=== PATIENT | male | born 1980 | race African-American/Black ===

== ENCOUNTER 2016-05-16 20:43 | Observation (INO) | payer SELFPAY ==
--- NOTE | 2016-05-16 20:47 | ER Document Report ---
ED Medical Screen (RME) - General Stated Complaint: RIGHT HAND LACERATION Mode of Arrival: Wheelchair Information source: Patient Notes: Patient presents to the emergency department with complaints of right arm laceration. He is on labs. Also is carrying a bag of blood. Reports he fell into a fish bowl. Patient has a tourniquet wrapped. Moving his hand without problems. I have greeted and performed a rapid initial assessment of this patient. A comprehensive ED assessment and evaluation of the patient, analysis of test results and completion of the medical decision making process will be conducted by additional ED providers. TRAVEL OUTSIDE OF THE [place] IN LAST 30 DAYS: No - Related Data Allergies/Adverse Reactions: lactose [Lactose] Adverse Reaction (Mild, Verified 05/29/15 01:08) Nausea Past Medical History Pulmonary Medical History: Reports: Hx Asthma Neurological Medical History: Reports: Hx Migraine Past Surgical History: Reports: Hx Abdominal Surgery - HERNIA, Hx Inguinal Hernia - Immunizations Immunizations up to date: Yes Hx Diphtheria, Pertussis, Tetanus Vaccination: Yes
[2016-05-16] MEDS ORDERED: MORPHINE SULFATE 10 MG/ML INJ IV ONE (20:59)
[2016-05-16] MEDS ORDERED: CEFAZOLIN 2 GM/D5W RTU 50 ML IV ONE (21:00)
[2016-05-16] MEDS ORDERED: ONDANSETRON HCL INJ/PF 4 MG/2 ML SDV IV ONE (21:00)
--- NOTE | 2016-05-16 21:04 | ER Document Report ---
ED Extremity Problem, Upper - General Stated Complaint: RIGHT HAND LACERATION Mode of Arrival: Wheelchair Information source: Patient Notes: 35-year-old -[place] male who presents to the emergency Department with lacerations to his right forearm and hand after he states that he fell into the fish tank. This happened about one hour prior to arrival. EMS was notified and responded in bandage the wound however patient refused transport and came by POV. He denies any other injury. He states his last tetanus shot was one year ago. TRAVEL OUTSIDE OF THE [place] IN LAST 30 DAYS: No - Related Data Allergies/Adverse Reactions: lactose [Lactose] Adverse Reaction (Mild, Verified 05/29/15 01:08) Nausea Past Medical History - General Information source: Patient - Social History Smoking Status: Current Every Day Smoker Family History: Reviewed & Not Pertinent Pulmonary Medical History: Reports: Hx Asthma Neurological Medical History: Reports: Hx Migraine Past Surgical History: Reports: Hx Abdominal Surgery - HERNIA, Hx Inguinal Hernia - Immunizations Immunizations up to date: Yes Hx Diphtheria, Pertussis, Tetanus Vaccination: Yes Review of Systems - Review of Systems Notes: REVIEW OF SYSTEMS: CONSTITUTIONAL : Denies fever, chills, or sweats. Denies recent illness. EENT: Denies eye, ear, throat, or mouth pain or symptoms. CARDIOVASCULAR: Denies chest pain. RESPIRATORY: Denies shortness of breath, difficulty breathing, or wheezing. GASTROINTESTINAL: Denies abdominal pain. Denies nausea, vomiting, or diarrhea. GENITOURINARY: Denies difficulty urinating, painful urination MUSCULOSKELETAL: As per history of present illness SKIN: Denies rash or skin lesions. HEMATOLOGIC : Denies easy bruising or bleeding. LYMPHATIC: Denies swollen, enlarged glands. NEUROLOGICAL: Denies altered mental status or loss of consciousness. Denies headache. PSYCHIATRIC: Denies anxiety or stress or depression. ALL OTHER SYSTEMS REVIEWED AND NEGATIVE. Physical Exam - Vital signs Interpretation: Normal - Notes Notes: PHYSICAL EXAMINATION: GENERAL: Well-appearing, well-nourished , anxious secondary to injury and pain HEAD: Atraumatic, normocephalic. EYES: Pupils equal round and reactive to light, extraocular movements intact, sclera anicteric, conjunctiva are normal. ENT: nares patent, oropharynx clear without exudates. Moist mucous membranes. NECK: Normal range of motion, supple without lymphadenopathy LUNGS: Breath sounds clear to auscultation bilaterally and equal. No wheezes rales or rhonchi. HEART: Regular rate and rhythm without murmurs ABDOMEN: Soft, nontender, normoactive bowel sounds. No guarding, no rebound. No masses appreciated. EXTREMITIES: Normal range of motion, no pitting or edema. No cyanosis. RUE: 2 deep gaping forearm lacerations #1: radial aspect of mid forearm, 4cm, gaping with obvious exposed muscle. No visible tendon injury, no obvious foreign body, brisk oozing but no pulsatile bleeding #2: ulner aspect of mid forearm, 5.5 cm gaping laceration through muscle level, active oozing but no pulsatile bleeding, no visualized tendon or foreign body Radial pulse 2+, cap refill intact ROM: pt with difficulty extending digits (with significant pain), but flexion intact sensation intact distally NEUROLOGICAL: Cranial nerves grossly intact. Normal speech. PSYCH: Normal mood, appropriately anxious affect. Course - Re-evaluation Re-evalutation: 05/16/16 22:24 X-ray show no evidence of foreign body or fracture. Discussed with orthopedics Dr. Rosas. At this point with no evidence of active arterial bleeding and intact distal pulses plan will be for copious irrigation in the emergency department as well as skin approximation with sutures. The patient will then be admitted to the hospital for operative management in the morning. 05/17/16 00:12 Lacerations were cleaned, irrigated, and reapproximated superficially as noted in procedure note. Following the procedure distal pulses were intact as well as capillary refill. Patient tolerated the procedure well. He has received IV pain medicine as well as Ancef. He will be kept NPO in anticipation of operative repair in the morning 05/17/16 00:15 05/17/16 00:16 - Laboratory Result Diagrams: 05/16/16 22:16 05/16/16 22:16 Procedures - Laceration/Wound Repair Right forearm #1 Wound length (cm): 4 Wound's Depth, Shape: Into muscle, Linear Laceration pre-procedure: Sterile PPE donned, Betadine prep applied, Sterile drapes applied, Shur-Clens applied Anesthetic type: 1% Lidocaine w/epi Volume Anesthetic (mLs): 4 Wound explored: Clean Irrigated w/ Saline (mLs): 1,000 Wound Repaired With: Sutures Suture Size/Type: 4:0, Prolene Number of Sutures: 4 - 3 simple interrupted, 1 horizontal mattress to reapproximate tissue Post-procedure wound care: Sterile dressing applied Post-procedure NV exam normal: Yes Complications: No right forearm #2 Wound length (cm): 5.5 Wound's Depth, Shape: Into muscle Laceration pre-procedure: Sterile PPE donned, Betadine prep applied, Sterile drapes applied Anesthetic type: 1% Lidocaine w/epi Volume Anesthetic (mLs): 6 Wound explored: Clean Irrigated w/ Saline (mLs): 1,000 Wound Repaired With: Sutures Suture Size/Type: 4:0, Prolene Number of Sutures: 5 - 4 simple interrupted, 1 horizontal mattress to reapproximate tissue Layer Closure?: No Post-procedure wound care: Sterile dressing applied Post-procedure NV exam normal: Yes Complications: No Discharge - Discharge Clinical Impression: Laceration of forearm, right, complicated Qualifiers: Encounter type: initial encounter Qualified Code(s): S51.811A - Laceration without foreign body of right forearm, initial encounter Disposition: ADMITTED OBSERVATION Admitting Provider: ortho: Dr. Rosas Unit Admitted: Medical Floor - for OR repair in am
[2016-05-16] MEDS ORDERED: HYDROMORPHONE HCL INJ/PF 2 MG/ML AMPULE IV ONE (22:15)
[2016-05-16] MEDS ORDERED: ONDANSETRON HCL INJ/PF 4 MG/2 ML SDV IV PRN (22:24)
[2016-05-16] MEDS ORDERED: LIDOCAINE 1%/EPINEPHRINE INJ 20 ML VIAL INJ ONE (22:25)
[2016-05-16 22:32] LABS: ABSOLUTE EOSINOPHILS # (AUTO) 0.5 10^3/uL (0.0-0.6); ABSOLUTE LYMPHOCYTES (AUTO) 2.2 10^3/uL (0.5-4.7); ABSOLUTE MONOCYTES (AUTO) 0.9 10^3/uL (0.1-1.4); ABSOLUTE NEUT (AUTO) 9.2 10^3/uL (1.7-8.2); BASOPHILS % (AUTO) 0.3 % (0-2); EOSINOPHILS % (AUTO) 3.7 % (0-6); HEMATOCRIT 35.9 % (37.9-51.0); HEMOGLOBIN 12.3 g/dL (13.5-17.0); LYMPHOCYTES % (AUTO) 17.2 % (13-45); MEAN CORPUSCULAR HEMOGLOBIN 32.4 pg (27.0-33.4); MEAN CORPUSCULAR HGB CONC 34.4 g/dL (32.0-36.0); MEAN CORPUSCULAR VOLUME 94 fl (80-97); RED BLOOD COUNT 3.81 10^6/uL (4.35-5.55); RED CELL DISTRIBUTION WIDTH 12.1 % (11.5-14.0); SEGMENTED NEUTROPHILS % (AUTO) 71.8 % (42-78); WHITE BLOOD COUNT 12.8 10^3/uL (4.0-10.5)
[2016-05-16 22:57] LABS: ALANINE AMINOTRANSFERASE 29 U/L (21-72); ALBUMIN 4.5 g/dL (3.5-5.0); ALKALINE PHOSPHATASE 55 U/L (38-126); ANION GAP 9 (5-19); ASPARTATE AMINO TRANSFERASE 23 U/L (17-59); BILIRUBIN,TOTAL 1.2 mg/dL (0.2-1.3); BLOOD UREA NITROGEN 11 mg/dL (7-20); CALCIUM 10.3 mg/dL (8.4-10.2); CARBON DIOXIDE 29 mmol/L (22-30); CHLORIDE 104 mmol/L (98-107); CREATININE RESULT 1.12 mg/dL (0.52-1.25); GLUCOSE 109 mg/dL (75-110); SODIUM 142.3 mmol/L (137-145); TOTAL PROTEIN 7.6 g/dL (6.3-8.2)
[2016-05-16 22:58] LABS: ALCOHOL < 10 mg/dL (NONE DETECTED)
[2016-05-17] MEDS: RINGERS SOLUTION,LACTATED 1,000 ML IV PRN ×2 (01:45→18:59)
[2016-05-17] MEDS: MORPHINE SULFATE 10 MG/ML INJ IV PRN ×4 (01:46→16:00)
[2016-05-17] MEDS: OXYCODONE-ACETAMINOPHEN 5-325 MG TABLET PO PRN ×3 (07:33→23:22)
[2016-05-17] MEDS ORDERED: SUCCINYLCHOLINE CHLORIDE INJ 200 MG/10 ML VIAL ONE ×2 (11:27→11:28)
--- NOTE | 2016-05-17 12:57 | PDOC H&P ---
History of Present Illness Admission Date/PCP: 05/16/16 22:16 History of Present Illness: BRIDGETTE AMAYA is a 35 year old male who sustained a fall into a fish tank onto his right forearm yesterday. He sustained lacerations of the forearm. He was seen at the emergency room with the wound was explored irrigated and closed. He was found to have possible tendon disruption but no vascular compromise. Results was then admitted to my service. Currently patient stating pain is 10/10. Does have some weird feelings in his fingers but denies actual numbness. Has been taking morphine with some relief. Past Medical History Pulmonary Medical History: Reports: Asthma Neurological Medical History: Reports: Migraine Social History Smoking Status: Current Every Day Smoker Hx Recreational Drug Use: Yes Hx Prescription Drug Abuse: No - Advance Directive Resuscitation Status: Full Code Family History Family History: Reviewed & Not Pertinent Parental Family History Reviewed: No Children Family History Reviewed: No Sibling(s) Family History Reviewed.: No Medication/Allergy Home Medications: No Home Medications 05/17/16 Allergies/Adverse Reactions: lactose [Lactose] Adverse Reaction (Mild, Verified 05/29/15 01:08) Nausea Review of Systems Constitutional: ABSENT: chills, fever(s), headache(s), weight gain, weight loss Eyes: ABSENT: visual disturbances Ears: ABSENT: hearing changes Cardiovascular: ABSENT: chest pain, dyspnea on exertion, edema, orthropnea, palpitations Respiratory: ABSENT: cough, hemoptysis Gastrointestinal: ABSENT: abdominal pain, constipation, diarrhea, hematemesis, hematochezia, nausea, vomiting Genitourinary: ABSENT: dysuria, hematuria Integumentary: ABSENT: rash, wounds Neurological: ABSENT: abnormal gait, abnormal speech, confusion, dizziness, focal weakness, syncope Psychiatric: ABSENT: anxiety, depression, homidical ideation, suicidal ideation Endocrine: ABSENT: cold intolerance, heat intolerance, menstrual abnormalities, polydipsia, polyuria Hematologic/Lymphatic: ABSENT: easy bleeding, easy bruising, lymphadenopathy Physical Exam Vital Signs: Temp Pulse Resp BP Pulse Ox 98.5 F 65 16 121/75 100 05/17/16 12:00 05/17/16 12:00 05/17/16 12:00 05/17/16 12:00 05/17/16 12:00 Intake & Output 05/16/16 05/17/16 05/18/16 06:59 06:59 06:59 Weight 89.8 kg General appearance: PRESENT: no acute distress, well-developed, well-nourished Head exam: PRESENT: atraumatic, normocephalic Eye exam: PRESENT: conjunctiva pink, EOMI, PERRLA. ABSENT: scleral icterus Ear exam: PRESENT: normal external ear exam Mouth exam: PRESENT: moist, tongue midline Neck exam: PRESENT: full ROM. ABSENT: carotid bruit, JVD, lymphadenopathy, thyromegaly Cardiovascular exam: PRESENT: RRR. ABSENT: diastolic murmur, rubs, systolic murmur Pulses: PRESENT: normal dorsalis pedis pul, +2 pedal pulses bilateral Vascular exam: PRESENT: normal capillary refill GI/Abdominal exam: PRESENT: normal bowel sounds, soft. ABSENT: distended, guarding, mass, organolmegaly, rebound, tenderness Rectal exam: PRESENT: deferred Musculoskeletal exam: PRESENT: other - Right upper extremity: Dressing removed. 6 cm laceration along the dorsoradial aspect of the forearm approximately 6 minutes proximal to the wrist crease. No erythema or drainage. Minimal bruising. Second laceration approximately 4 cm along the ulnar aspect of the wrist. Radial pulse palpable. Cap refill less than 2 seconds. Patient has intact DIP and PIP joint motion however limited examination of digital flexion given patient's pain. Patient has intact sensation to light touch along the median and ulnar nerve distribution. Intact sensation to light touch however hypoesthesias along the superficial radial nerve distribution. Full wrist range of motion however limited once again secondary to patient's pain. Neurological exam: PRESENT: alert, awake, oriented to person, oriented to place , oriented to time, oriented to situation, CN II-XII grossly intact. ABSENT: motor sensory deficit Psychiatric exam: PRESENT: appropriate affect, normal mood. ABSENT: homicidal ideation, suicidal ideation Skin exam: PRESENT: dry, intact, warm. ABSENT: cyanosis, rash Results Impressions: Hand X-Ray 05/16/16 21:01 IMPRESSION: NEGATIVE STUDY OF THE RIGHT HAND. NO RADIOGRAPHIC EVIDENCE OF ACUTE INJURY. Forearm X-Ray 05/16/16 21:02 IMPRESSION: Soft tissue injury without evidence for fracture. Assessment & Plan - Diagnosis (1) Laceration of forearm, right, complicated Qualifiers: Encounter type: initial encounter Qualified Code(s): S51.811A - Laceration without foreign body of right forearm, initial encounter Is this a current diagnosis for this admission?: YesPlan: Patient sustained a right forearm laceration. On physical examination he appears to have intact function of all digits and the wrist also outside the fascial radial nerve sensation appears intact but given the severity of the injury and the emergency room physicians findings I have recommended expiration of the right forearm with possible tendon, nerve and arterial repair. Risks and benefits of the surgical procedure have been explained to the patient wishes including neurovascular risk, infection, postoperative pain, postoperative stiffness patient is verbalizes understanding consented for the procedure.
[2016-05-17] MEDS ORDERED: NICOTINE 21 MG/24 HR PATCH.TD24 TD ONE (15:00)
[2016-05-17] MEDS ORDERED: HYDROMORPHONE HCL INJ/PF 2 MG/ML AMPULE ONE (19:18)
[2016-05-17] MEDS ORDERED: MIDAZOLAM 2 MG/2 ML INJ ONE (19:18)
[2016-05-17] MEDS ORDERED: PROPOFOL INJ 200 MG/20 ML VIAL IV ONE (19:19)
[2016-05-17] MEDS ORDERED: ONDANSETRON HCL INJ/PF 4 MG/2 ML SDV ONE (19:19)
[2016-05-17] MEDS ORDERED: ACETAMINOPHEN 100 ML IV ONE (19:19)
[2016-05-17] MEDS ORDERED: DEXAMETHASONE SOD PHOSPHATE INJ 4 MG/1 ML VIAL ONE (19:19)
[2016-05-17] MEDS ORDERED: CEFAZOLIN INJ 1 GM VIAL ONE (19:34)
[2016-05-17] MEDS ORDERED: BUPIVACAINE HCL 0.5 % INJ/PF 30 ML SDV ONE (19:39)
[2016-05-17] MEDS ORDERED: PROMETHAZINE HCL INJ 25 MG/1 ML VIAL IV PRN ×2 (20:08)
[2016-05-17] MEDS ORDERED: FENTANYL CITRATE INJ/PF 100 MCG/2 ML AMPUL IV PRN ×3 (20:08)
[2016-05-17] MEDS ORDERED: DIPHENHYDRAMINE HCL 50 MG/ML VIAL IV PRN (20:08)
[2016-05-17] MEDS ORDERED: MORPHINE SULFATE 10 MG/ML INJ IV PRN (20:08)
[2016-05-17] MEDS ORDERED: MEPERIDINE HCL/PF INJ 25 MG/1 ML DISP.SYRIN IV PRN (20:08)
[2016-05-17] MEDS ORDERED: OXYCODONE-ACETAMINOPHEN 5-325 MG TABLET PO PRN ×2 (20:08)
[2016-05-17] MEDS ORDERED: ONDANSETRON HCL INJ/PF 4 MG/2 ML SDV IV PRN (20:08)
--- NOTE | 2016-05-17 22:02 | Operative Report ---
Operative Report DATE OF SURGERY: 05/17/16 PREOPERATIVE DIAGNOSIS: Right Forearm Laceration POSTOPERATIVE DIAGNOSIS: Right FCU/FCR/Radial Artery Laceration OPERATION: Repair Right FCU/FCR/Radial Artery Laceration. Complex Repair SURGEON: ZENOBIA CRUZ ANESTHESIA: GA COMPLICATIONS: None ESTIMATED BLOOD LOSS: Minimal PROCEDURE: Indication for above procedure: 35-year-old male who inadvertently lacerated his right forearm on a fish tank. Patient was seen at the emergency room where the wound was cleansed explored superficially and closed. He was found to have bleeding and disruption of the tendon and muscle. He was admitted to my service at which point he was set up for operative intervention. Risks and benefits were explained to the patient patient verbalized understanding consented for the procedure. Procedure In Detail: Patient was seen and evaluated in the preoperative holding area. The RIGHT upper extremity was initialized and marked. Patient received 2g of Ancef IV for bacterial prophylaxis. Patient was taken back to the operative room where transferred to the operative table and placed under general anesthesia. Once they were adequately anesthetized a nonsterile tourniquet was placed on the upper extremity. A surgical team debriefing was performed ensuring all instrumentation was available, the surgical procedure was discussed with possible concerns reviewed. The upper extremity was prepped with chlorhexidine and alcohol and draped in a sterile fashion. A timeout was done identifying correct patient, procedure and extremity everyone in attendance agree with this and verbalized no concerns. The extremity was exsanguinated the tourniquet was inflated to 250 mmHg. Patient's ulnar skin incision was approximately 6 cm in length and 12 cm proximal to the wrist crease. It was extended longitudinally proximally and distally. Blunt dissection was then performed there is disruption of the FCU at its musculotendinous junction. The ulnar nerve was identified and in continuity along with the ulnar artery. There is just superficial disruption of the FDP fascia at the muscular level. The wound was irrigated with saline. The FCU musculotendinous junction was reapproximated with 3-0 Ethibond suture. Peripheral vasculature was coagulated with bipolar cautery and suture ties. Patient's laceration was irregular nature thus the skin edges were excised to allow for more cosmetically pleasing scar. This was closed with 3-0 nylon suture. The radial incision was 6 cm proximal to the wrist crease and a proximally 7 cm in length. Blunt dissection was performed there was more disruption of a peripheral branch of the lateral antebrachial cutaneous nerve but due to the superficial nature it was not repaired. The superficial radial nerve was identified and intact. There is disruption of the FCR tendon but no involvement of the median nerve or palmaris longus. Laceration was deeper on the radial aspect superficial ulnar to the FCR tendon. There was complete laceration of the radial artery. The wound was irrigated with normal saline. The FCR tendon was repaired at its muscular tendinous junction with figure-of- eight Ethibond suture and horizontal mattress successfully reapproximating the tendon without gapping. I then reapproximated the radial artery. The adventitia was carefully stripped. The tourniquet was deflated to I got good flow from the proximal distal aspect. Re-anastomosis was performed with interrupted 8-0 nylon suture anastomosis was checked after reapproximation had good flow proximally and distally. Any peripheral vascular was coagulated with bipolar cautery. Wound was once again irrigated with saline. Skin was closed with 3-0 nylon suture. 30 mL of 0.5% Marcaine without epinephrine was injected for postoperative pain control. Patient's capillary refill and skin turgor was normal after anastomosis. Wound was dressed with Xeroform 4 x 4's and patient was placed in a dorsal blocking splint leaving the MP and IP joints free. Sponge counts, instrument counts, needle counts counts were correct. Patient was then awoken from anesthesia. Transferred from the operating room table to the operating room stretcher. There was no intraoperative complications patient tolerated procedure well stable to PACU. Postoperative plan: Patient will follow-up with me in 10-14 days for wound check and suture removal. He will continue the splint until follow-up. We will start him on enteric-coated aspirin for anticoagulation status post anastomosis.
[2016-05-17] MEDS ORDERED: KETOROLAC TROMETHAMINE INJ/PF 30 MG/1 ML SDV IV PRN (22:06)
[2016-05-17] MEDS ORDERED: CEFAZOLIN INJ 1 GM VIAL IV SCH (22:30)
[2016-05-17 23:37] VITALS: BP 126/75
[2016-05-18] MEDS ORDERED: CEFAZOLIN 2 GM/D5W RTU 2 GM/50 ML RTUPB IV SCH
[2016-05-18] MEDS ORDERED: HEPARIN SOD (PORCINE) 5,000 UNIT/ML 1 ML SYRINGE SUBCUT SCH (06:00)
[2016-05-18] MEDS ORDERED: NICOTINE 21 MG/24 HR PATCH.TD24 TD SCH (10:00)
[2016-05-18] MEDS ORDERED: OXYCODONE HCL SR 10 MG TABLET PO SCH (10:00)
--- NOTE | 2016-05-19 13:08 | PDOC DISCHARGE SUMMARY ---
General - Admit/Disc Date/PCP Admission Date/Primary Care Provider: 05/16/16 22:16 Discharge Date: 05/17/16 - Discharge Diagnosis (1) Laceration of forearm, right, complicated Is this a current diagnosis for this admission?: Yes - Additional Information Resuscitation Status: Full Code Discharge Diet: Regular Discharge Activity: No Lifting Over 10 Pounds, No Lifting/Push/Pulling Home Medications: Doxycycline Hyclate 100 mg PO DAILY #10 tablet 05/17/16 Oxycodone HCl/Acetaminophen [Percocet 5-325 mg Tablet] 1 - 2 tab PO ASDIR PRN # 50 tablet 05/17/16 History of Present Illness Patient complains of: Right forearm laceration History of Present Illness: BRIDGETTE AMAYA is a 35 year old male who sustained a fall into a fish tank onto his right forearm yesterday. He sustained lacerations of the forearm. He was seen at the emergency room with the wound was explored irrigated and closed. He was found to have possible tendon disruption but no vascular compromise. Hospital Course Hospital Course: On 05/17/16 patient underwent expiration of the right forearm. There was evidence of radial artery laceration. No evidence of nerve involvement. Patient underwent repair of the FCR, FCU and radial artery at that time. Postoperative patient was found to have no vascular compromise and thus it was decided patient was orthopedically stable for discharge to home. Patient received IV Lasix in the emergency room. He was be discharged home on by mouth antibiotics and continue the splint until follow up at my office. Physical Exam Vital Signs: Temp Pulse Resp BP Pulse Ox 98.2 F 86 12 126/75 H 95 05/17/16 23:35 05/17/16 23:35 05/17/16 23:35 05/17/16 23:35 05/17/16 23:35 Intake & Output 05/18/16 05/19/16 05/20/16 06:59 06:59 06:59 Intake Total 6250 Output Total 510 Balance 5740 General appearance: PRESENT: no acute distress, well-developed, well-nourished Head exam: PRESENT: atraumatic, normocephalic Eye exam: PRESENT: conjunctiva pink, EOMI, PERRLA. ABSENT: scleral icterus Ear exam: PRESENT: normal external ear exam Mouth exam: PRESENT: moist, tongue midline Neck exam: PRESENT: full ROM. ABSENT: carotid bruit, JVD, lymphadenopathy, thyromegaly Cardiovascular exam: PRESENT: RRR. ABSENT: diastolic murmur, rubs, systolic murmur Pulses: PRESENT: normal dorsalis pedis pul, +2 pedal pulses bilateral Vascular exam: PRESENT: normal capillary refill GI/Abdominal exam: PRESENT: normal bowel sounds, soft. ABSENT: distended, guarding, mass, organolmegaly, rebound, tenderness Rectal exam: PRESENT: deferred Musculoskeletal exam: PRESENT: other - Right forearm: Splint dry/intact, intact flexion/extension of all digits. Capillary refill less than 2 seconds. No sensory deficits. No evidence of skin breakdown. Neurological exam: PRESENT: alert, awake, oriented to person, oriented to place , oriented to time, oriented to situation, CN II-XII grossly intact. ABSENT: motor sensory deficit Psychiatric exam: PRESENT: appropriate affect, normal mood. ABSENT: homicidal ideation, suicidal ideation Skin exam: PRESENT: dry, intact, warm. ABSENT: cyanosis, rash Results Impressions: Hand X-Ray 05/16/16 21:01 IMPRESSION: NEGATIVE STUDY OF THE RIGHT HAND. NO RADIOGRAPHIC EVIDENCE OF ACUTE INJURY. Forearm X-Ray 05/16/16 21:02 IMPRESSION: Soft tissue injury without evidence for fracture. Plan Discharge Plan: Patient status post FCR, FCU and radial artery repair given his preoperative basher status was not compromised and his postoperative vascular status was unchanged patient was orthopedic was able for discharge to home. Patient to take doxycycline for bacterial prophylaxis. He will continue the splint until follow-up. He will follow-up with me in 10-14 days at which point we will proceed with wound check and start him on occupational therapy.
== END 2016-05-18 00:11 | disposition home or self-care (01) ==
LOC: ER 20:43 → EH 22:16 → 4N 05-17 01:28
PROC: 3E033GC Introduction of Other Therapeutic Substance into Peripheral Vein, Percutaneous Approach (ICD-10-PCS; principal; 2016-05-16)
PROC: 3E033GC Introduction of Other Therapeutic Substance into Peripheral Vein, Percutaneous Approach (ICD-10-PCS; 2016-05-16)
PROC: 3E033GC Introduction of Other Therapeutic Substance into Peripheral Vein, Percutaneous Approach (ICD-10-PCS; 2016-05-16)
PROC: 0KQ90ZZ Repair Right Lower Arm and Wrist Muscle, Open Approach (ICD-10-PCS; 2016-05-16)
PROC: 03QB0ZZ Repair Right Radial Artery, Open Approach (ICD-10-PCS; 2016-05-16)
PROC: 0JQG0ZZ Repair Right Lower Arm Subcutaneous Tissue and Fascia, Open Approach (ICD-10-PCS; 2016-05-16)
DX: S51.811A Laceration without foreign body of right forearm, initial encounter (principal); S55.111A Laceration of radial artery at forearm level, right arm, initial encounter; S56.221A Laceration of other flexor muscle, fascia and tendon at forearm level, right arm, initial encounter; W01.110A Fall on same level from slipping, tripping and stumbling with subsequent striking against sharp glass, initial encounter; Y92.009 Unspecified place in unspecified non-institutional (private) residence as the place of occurrence of the external cause; J45.909 Unspecified asthma, uncomplicated; F17.200 Nicotine dependence, unspecified, uncomplicated
CPT/HCPCS: 96376; 99284; 96374; 96375; 36415; 80307; 85025; 80053; 73090; 73130; 25260 ×2; 35206; 12034; G0378 ×3; J2250; J0690 ×2; J1100; J2270 ×2; J1170 ×2; J0330; J2405 ×2; J7120; J2704; J0131; 00400

== ENCOUNTER 2016-08-22 20:09 | Emergency (ER) | payer SELFPAY ==
[2016-08-22 21:02] LABS: ALANINE AMINOTRANSFERASE 32 U/L (21-72); ALBUMIN 4.1 g/dL (3.5-5.0); ALKALINE PHOSPHATASE 60 U/L (38-126); ANION GAP 14 (5-19); ASPARTATE AMINO TRANSFERASE 28 U/L (17-59); BILIRUBIN,DIRECT 0.3 mg/dL (0.0-0.4); BILIRUBIN,TOTAL 0.7 mg/dL (0.2-1.3); BLOOD UREA NITROGEN 11 mg/dL (7-20); CALCIUM 9.5 mg/dL (8.4-10.2); CARBON DIOXIDE 26 mmol/L (22-30); CHLORIDE 99 mmol/L (98-107); CREATINE KINASE 538 U/L (55-170); CREATININE RESULT 1.03 mg/dL (0.52-1.25); GLUCOSE 108 mg/dL (75-110); POTASSIUM 3.7 mmol/L (3.6-5.0); SODIUM 138.9 mmol/L (137-145); TOTAL PROTEIN 7.4 g/dL (6.3-8.2)
[2016-08-22 21:13] LABS: CREATINE KINASE MB 3.67 ng/mL (<4.55); TROPONIN I < 0.012 ng/mL
--- NOTE | 2016-08-22 21:15 | ER Document Report ---
ED General - General Chief Complaint: Chest Pain Stated Complaint: DIFFICULTY BREATHING Time Seen by Provider: 08/22/16 20:31 Mode of Arrival: Ambulatory Information source: Patient Notes: 35-year-old male who was recently seen 5 days prior at outlying facility for complaints of vomiting blood and chest pain presents with complaints of continued symptoms. Patient notes that he has not picked up the medications that had prescribed him denies any fevers or chills TRAVEL OUTSIDE OF THE [place] IN LAST 30 DAYS: No - HPI Onset: Last week Onset/Duration: Persistent Quality of pain: Achy Severity: Moderate Pain Level: 3 Associated symptoms: Chest pain, Nausea, Vomiting, Shortness of breath Exacerbated by: Denies Relieved by: Denies Similar symptoms previously: Yes Recently seen / treated by doctor: Yes - Related Data Allergies/Adverse Reactions: lactose [Lactose] Adverse Reaction (Mild, Verified 08/22/16 20:20) Nausea Past Medical History - Social History Smoking Status: Never Smoker Cigarette use (# per day): No Chew tobacco use (# tins/day): No Smoking Education Provided: No Family History: Reviewed & Not Pertinent Pulmonary Medical History: Reports: Hx Asthma Neurological Medical History: Reports: Hx Migraine Renal/ Medical History: Denies: Hx Peritoneal Dialysis Past Surgical History: Reports: Hx Abdominal Surgery - HERNIA, Hx Inguinal Hernia - Immunizations Immunizations up to date: Yes Hx Diphtheria, Pertussis, Tetanus Vaccination: Yes Review of Systems - Review of Systems Notes: REVIEW OF SYSTEMS: CONSTITUTIONAL : Denies fever, chills, or sweats. Denies recent illness. EENT: Denies eye, ear, throat, or mouth pain or symptoms. Denies nasal or sinus congestion or discharge. Denies throat, tongue, or mouth swelling or difficulty swallowing. CARDIOVASCULAR: Admits to chest pain RESPIRATORY: Admits to shortness of breath GASTROINTESTINAL: Admits to nausea vomiting GENITOURINARY: Denies difficulty urinating, painful urination, burning, frequency, blood in urine, or discharge. MUSCULOSKELETAL: Denies back or neck pain or stiffness. Denies joint pain or swelling. SKIN: Denies rash, lesions or sores. HEMATOLOGIC : Denies easy bruising or bleeding. LYMPHATIC: Denies swollen, enlarged glands. NEUROLOGICAL: Denies confusion or altered mental status. Denies passing out or loss of consciousness. Denies dizziness or lightheadedness. Denies headache. Denies weakness or paralysis or loss of use of either side. Denies problems with gait or speech. Denies sensory loss, numbness, or tingling. Denies seizures. PSYCHIATRIC: Denies anxiety or stress. Denies depression, suicidal ideation, or homicidal ideation. ALL OTHER SYSTEMS REVIEWED AND NEGATIVE. Dictation was performed using [employer] voice recognition software PHYSICAL EXAMINATION: GENERAL: Well-appearing, well-nourished and in no acute distress. HEAD: Atraumatic, normocephalic. EYES: Pupils equal round and reactive to light, extraocular movements intact, sclera anicteric, conjunctiva are normal. ENT: Nares patent, oropharynx clear without exudates. Moist mucous membranes. NECK: Normal range of motion, supple without lymphadenopathy LUNGS: Breath sounds clear to auscultation bilaterally and equal. No wheezes rales or rhonchi. HEART: Regular rate and rhythm without murmurs ABDOMEN: Soft, nontender, nondistended abdomen. No guarding, no rebound. No masses appreciated. Musculoskeletal: Normal range of motion, no pitting or edema. No cyanosis. NEUROLOGICAL: Cranial nerves grossly intact. Normal speech, normal gait. Normal sensory, motor exams PSYCH: Normal mood, normal affect. SKIN: Warm, Dry, normal turgor, no rashes or lesions noted. Physical Exam - Vital signs Vitals: Temp Pulse Resp BP Pulse Ox 98.4 F 76 20 169/103 H 98 08/22/16 20:24 08/22/16 20:24 08/22/16 20:24 08/22/16 20:24 08/22/16 20:24 Course - Re-evaluation Re-evalutation: 08/22/16 20:55 Patient states he has a hiatal hernia which is the probable cause of his shortness of breath and vomiting episodes. Lab work is pending CTA of the chest has been ordered 08/22/16 22:48 pt given Ativan and GI cocktail and had immediate relief of symptoms 08/22/16 23:45 Patient has been watched has been resting comfortably, I will discharge home with GI follow-up and Pepcid. Patient has been instructed to take the Zantac dose prescribed to him as well This does not appear to be cardiac in nature given that patient has been washed multiple times in this ED and outlined the ED, denies any actual chest pain and his biggest concern is the gastric reflux After performing a Medical Screening Examination, I estimate there is LOW risk for ACUTE APPENDICITIS, BOWEL OBSTRUCTION, ACUTE CHOLECYSTITIS, PERFORATED DIVERTICULITIS, INCARCERATED HERNIA, PANCREATITIS, or PERFORATED ULCER, thus I consider the discharge disposition reasonable. Also, there is no evidence or peritonitis, sepsis, or toxicity. I have reevaluated this patient multiple times and no significant life threatening changes are noted. The patient and I have discussed the diagnosis and risks, and we agree with discharging home with close follow-up with the understanding that symptoms and presentations can change. We also discussed returning to the Emergency Department immediately if new or worsening symptoms occur. We have discussed the symptoms which are most concerning (e.g., bloody stool, fever, changing or worsening pain, intractable vomiting - standard verbal up date) that necessitate immediate return. 08/22/16 23:46 - Vital Signs Vital signs: Temp Pulse Resp BP Pulse Ox 98.4 F 76 13 140/92 H 95 08/22/16 20:24 08/22/16 20:24 08/22/16 22:01 08/22/16 22:01 08/22/16 22:01 - Laboratory Result Diagrams: 08/22/16 20:37 08/22/16 20:37 Laboratory results interpreted by me: 08/22/16 08/22/16 20:37 20:37 RBC 4.00 L Hgb 12.7 L Creatine Kinase 538 H - Diagnostic Test Radiology reviewed: Image reviewed, Reports reviewed - No acute abnormality Discharge - Discharge Clinical Impression: Epigastric pain GERD (gastroesophageal reflux disease) Qualifiers: Esophagitis presence: with esophagitis Qualified Code(s): K21.0 - Gastro- esophageal reflux disease with esophagitis Condition: Stable Disposition: HOME, SELF-CARE Instructions: Abdominal Pain ([facility]) Prescriptions: Famotidine [Pepcid 20 mg Tablet] 20 mg PO DAILY #30 tablet Referrals: BENJAMIN TODD MD [ACTIVE STAFF] - Follow up tomorrow
[2016-08-22 21:27] LABS: ABSOLUTE EOSINOPHILS # (AUTO) 0.4 10^3/uL (0.0-0.6); ABSOLUTE LYMPHOCYTES (AUTO) 2.7 10^3/uL (0.5-4.7); ABSOLUTE MONOCYTES (AUTO) 0.7 10^3/uL (0.1-1.4); ABSOLUTE NEUT (AUTO) 6.3 10^3/uL (1.7-8.2); BASOPHILS % (AUTO) 0.2 % (0-2); EOSINOPHILS % (AUTO) 4.2 % (0-6); HEMATOCRIT 38.2 % (37.9-51.0); HEMOGLOBIN 12.7 g/dL (13.5-17.0); HGB HCT DIFFERENCE -0.1; LYMPHOCYTES % (AUTO) 26.2 % (13-45); MEAN CORPUSCULAR HEMOGLOBIN 31.8 pg (27.0-33.4); MEAN CORPUSCULAR HGB CONC 33.3 g/dL (32.0-36.0); MEAN CORPUSCULAR VOLUME 96 fl (80-97); MONOCYTES % (AUTO) 7.2 % (3-13); RED CELL DISTRIBUTION WIDTH 12.2 % (11.5-14.0); SEGMENTED NEUTROPHILS % (AUTO) 62.2 % (42-78); WHITE BLOOD COUNT 10.2 10^3/uL (4.0-10.5)
--- NOTE | 2016-08-22 21:27 | RADIOLOGY REPORT (SQ) ---
EXAM DESCRIPTION: CT CHEST WITHOUT COMPLETED DATE/TIME: 08/22/2016 9:03 pm REASON FOR STUDY: chest pain, vomiting blood COMPARISON: 09/11/2013 TECHNIQUE: CT scan performed of the chest without intravenous contrast. Images reviewed with lung, soft tissue and bone windows. Reconstructed coronal and sagittal MPR images reviewed. All images st ored on PACS. All CT scanners at this facility use dose modulation, iterative reconstruction, and/or weight based d osing when appropriate to reduce radiation dose to as low as reasonably achievable (ALARA). [facility]: Dose Right [facility]: CareDose [facility]: Dose Right [facility]: Teradose 4D [facility]: [employer] RADIATION DOSE: 15.16 mGy. LIMITATIONS: No technical limitations. FINDINGS: LUNGS AND PLEURA: No masses, infiltrates, pneumothorax. No pleural effusions, calcificati ons. Incidental note is made of trace early paraseptal emphysematous change at the lung apices. HILAR AND MEDIASTINAL STRUCTURES: Residual versus reactive thymus. No identified masses or abnormal nodes. No obvious aneurysm. HEART AND VASCULAR STRUCTURES: No aneurysm. No pericardial effusion. UPPER ABDOMEN: No significant findings. Limited exam. THYROID AND OTHER SOFT TISSUES: No masses. No adenopathy. BONES: No significant finding. HARDWARE: None in the chest. OTHER: Bilateral, symmetric gynecomastia. IMPRESSION: NO SIGNIFICANT FINDING ON NON-CONTRASTED CHEST CT. CHRONIC AND INCIDENTAL FINDINGS D ETAILED ABOVE. TECHNICAL DOCUMENTATION: JOB ID: [id number] Quality ID # [id number]: Final reports with documentation of one or more dose reduction techniques (e.g., Au tomated exposure control, adjustment of the mA and/or kV according to patient size, use of iterative reconstruction technique) 2010 [employer]- All Rights Reserved
[2016-08-22] MEDS ORDERED: METOCLOPRAMIDE HCL ORAL SOLN 10 MG/10 ML UDCUP PO ONE (21:40)
[2016-08-22] MEDS ORDERED: MAG HYDROX/AL HYDROX/SIMETH SUSP 30 ML UDCUP PO ONE (21:40)
[2016-08-22] MEDS ORDERED: LIDOCAINE 2% VISCOUS SOLN 20 ML UDCUP PO ONE (21:40)
[2016-08-22] MEDS ORDERED: LORAZEPAM INJ 2 MG/1 ML VIAL IV ONE (21:49)
[2016-08-23 01:19] VITALS: BP 147/92
--- NOTE | 2016-08-23 09:21 | EKG REPORT ---
SEVERITY:- NORMAL ECG - SINUS RHYTHM : Confirmed by: Jodee Thompson 23-Aug-2016 09:20:21
== END 2016-08-23 01:23 | disposition home or self-care (01) ==
LOC: ER 20:09
DX: K21.0 Gastro-esophageal reflux disease with esophagitis (principal); K44.9 Diaphragmatic hernia without obstruction or gangrene; T47.0X6A Underdosing of histamine H2-receptor blockers, initial encounter; Z91.128 Patient's intentional underdosing of medication regimen for other reason; Z91.14 Patient's other noncompliance with medication regimen; R10.13 Epigastric pain; R06.02 Shortness of breath; R11.2 Nausea with vomiting, unspecified; T50.906A Underdosing of unspecified drugs, medicaments and biological substances, initial encounter; J45.909 Unspecified asthma, uncomplicated
CPT/HCPCS: 93005; 99285; 96374; 36415; 82553; 82550; 85025; 80053; 84484; 71250; 93010; J3490; J2060

== ENCOUNTER 2016-09-07 22:54 | Emergency (ER) | payer SELFPAY ==
[2016-09-07] MEDS ORDERED: ONDANSETRON 4 MG TAB.RAPDIS PO ONE (23:18)
[2016-09-07] MEDS ORDERED: ACETAMINOPHEN 325 MG TABLET PO ONE (23:18)
--- NOTE | 2016-09-07 23:19 | ER Document Report ---
ED Medical Screen (RME) - General Chief Complaint: High Blood Pressure Stated Complaint: CANNOT BREATH, BLOOD PRESSURE PROBLEMS Time Seen by Provider: 09/07/16 23:16 Mode of Arrival: Ambulatory Information source: Patient Notes: Patient presents complaining of cough for the past week and difficulty breathing that started today. Patient complains of headache pain to bilateral temples. Patient does report nausea and vomiting 5 episodes today. Patient denies any diarrhea. Patient does state he has borderline hypertension and was advised to take medication although he has not been compliant with taking blood pressure medicine. Patient without any chest pain at this time. TRAVEL OUTSIDE OF THE [place] IN LAST 30 DAYS: No - Related Data Allergies/Adverse Reactions: lactose [Lactose] Adverse Reaction (Mild, Verified 08/22/16 20:20) Nausea Past Medical History Pulmonary Medical History: Reports: Hx Asthma Neurological Medical History: Reports: Hx Migraine Renal/ Medical History: Denies: Hx Peritoneal Dialysis Past Surgical History: Reports: Hx Abdominal Surgery - HERNIA, Hx Inguinal Hernia - Immunizations Immunizations up to date: Yes Hx Diphtheria, Pertussis, Tetanus Vaccination: Yes Physical Exam - Vital signs Vitals: Temp Pulse Resp BP Pulse Ox 98.7 F 88 20 150/96 H 95 09/07/16 23:00 09/07/16 23:00 09/07/16 23:00 09/07/16 23:00 09/07/16 23:00 - Respiratory Respiratory status: No respiratory distress Chest status: Nontender Breath sounds: Normal Course - Vital Signs Vital signs: Temp Pulse Resp BP Pulse Ox 98.7 F 88 20 150/96 H 95 09/07/16 23:00 09/07/16 23:00 09/07/16 23:00 09/07/16 23:00 09/07/16 23:00
[2016-09-07 23:42] LABS: ABSOLUTE EOSINOPHILS # (AUTO) 0.3 10^3/uL (0.0-0.6); ABSOLUTE LYMPHOCYTES (AUTO) 2.8 10^3/uL (0.5-4.7); ABSOLUTE MONOCYTES (AUTO) 0.7 10^3/uL (0.1-1.4); ABSOLUTE NEUT (AUTO) 4.9 10^3/uL (1.7-8.2); BASOPHILS % (AUTO) 0.4 % (0-2); EOSINOPHILS % (AUTO) 3.7 % (0-6); HEMATOCRIT 37.3 % (37.9-51.0); HEMOGLOBIN 12.7 g/dL (13.5-17.0); HGB HCT DIFFERENCE 0.8; LYMPHOCYTES % (AUTO) 31.9 % (13-45); MEAN CORPUSCULAR HEMOGLOBIN 32.4 pg (27.0-33.4); MEAN CORPUSCULAR HGB CONC 34.2 g/dL (32.0-36.0); MEAN CORPUSCULAR VOLUME 95 fl (80-97); MONOCYTES % (AUTO) 8.2 % (3-13); RED BLOOD COUNT 3.93 10^6/uL (4.35-5.55); RED CELL DISTRIBUTION WIDTH 12.2 % (11.5-14.0); SEGMENTED NEUTROPHILS % (AUTO) 55.8 % (42-78); WHITE BLOOD COUNT 8.7 10^3/uL (4.0-10.5)
[2016-09-07 23:54] LABS: ALANINE AMINOTRANSFERASE 40 U/L (21-72); ALBUMIN 4.1 g/dL (3.5-5.0); ALKALINE PHOSPHATASE 52 U/L (38-126); ANION GAP 11 (5-19); ASPARTATE AMINO TRANSFERASE 31 U/L (17-59); BILIRUBIN,DIRECT 0.2 mg/dL (0.0-0.4); BILIRUBIN,TOTAL 0.6 mg/dL (0.2-1.3); BLOOD UREA NITROGEN 15 mg/dL (7-20); CALCIUM 9.1 mg/dL (8.4-10.2); CARBON DIOXIDE 28 mmol/L (22-30); CHLORIDE 100 mmol/L (98-107); CREATINE KINASE 545 U/L (55-170); CREATININE RESULT 0.95 mg/dL (0.52-1.25); GLUCOSE 110 mg/dL (75-110); SODIUM 139.1 mmol/L (137-145); TOTAL PROTEIN 7.6 g/dL (6.3-8.2)
[2016-09-08 00:06] LABS: APPEARANCE,URINE CLEAR; BILIRUBIN,URINE NEGATIVE (NEGATIVE); CREATINE KINASE MB 3.71 ng/mL (<4.55); GLUCOSE, URINE NEGATIVE (NEGATIVE); KETONES,URINE NEGATIVE (NEGATIVE); LEUKOCYTE ESTERASE,URINE NEGATIVE (NEGATIVE); NITRITE,URINE NEGATIVE (NEGATIVE); PROTEIN,URINE NEGATIVE (NEGATIVE); TROPONIN I < 0.012 ng/mL; URINE BARBITURATES SCREEN NEGATIVE; URINE METHADONE SCREEN NEGATIVE; URINE OPIATES LOW UNCONFIRMED POSITIVE; URINE PHENCYCLIDINE SCREEN NEGATIVE; URINE SPECIFIC GRAVITY 1.025; UROBILINOGEN,URINE NEGATIVE mg/dL (<2.0)
--- NOTE | 2016-09-08 03:46 | ER Document Report ---
ED General - General Chief Complaint: High Blood Pressure Stated Complaint: CANNOT BREATH, BLOOD PRESSURE PROBLEMS Time Seen by Provider: 09/07/16 23:16 Mode of Arrival: Ambulatory Notes: Patient is a 35-year-old male who presents with complaint of feeling short of breath at times. He says blood pressures are running high. He has a family history of high blood pressure. He denies any chest pain. No headache. No fevers. No recent illnesses. No other complaints at this time. He has an appointment he Dr. Fuentes for the first time at the end of this month. TRAVEL OUTSIDE OF THE [place] IN LAST 30 DAYS: No - Related Data Allergies/Adverse Reactions: lactose [Lactose] Adverse Reaction (Mild, Verified 08/22/16 20:20) Nausea Past Medical History - General Information source: Patient - Social History Smoking Status: Current Every Day Smoker Frequency of alcohol use: None Drug Abuse: None Family History: Reviewed & Not Pertinent Patient has suicidal ideation: No Patient has homicidal ideation: No Pulmonary Medical History: Reports: Hx Asthma Neurological Medical History: Reports: Hx Migraine Renal/ Medical History: Denies: Hx Peritoneal Dialysis Past Surgical History: Reports: Hx Abdominal Surgery - HERNIA, Hx Inguinal Hernia - Immunizations Immunizations up to date: Yes Hx Diphtheria, Pertussis, Tetanus Vaccination: Yes Review of Systems - Review of Systems Notes: My Normal Review Basic REVIEW OF SYSTEMS: CONSTITUTIONAL : Denies fever, chills, or sweats. Denies recent illness. EENT: Denies eye, ear, throat, or mouth pain or symptoms. Denies nasal or sinus congestion. CARDIOVASCULAR: Denies chest pain. RESPIRATORY: sometimes feels short of breath. GASTROINTESTINAL: Denies abdominal pain. Denies nausea, vomiting, or diarrhea. Denies constipation. Last BM: MUSCULOSKELETAL: Denies neck or back pain or joint pain or swelling. SKIN: Denies rash or skin lesions. NEUROLOGICAL: Denies altered mental status or loss of consciousness. Denies headache. Denies weakness or paralysis or loss of use of either side. Denies problems with gait or speech. Denies sensory or motor loss. ALL OTHER SYSTEMS REVIEWED AND NEGATIVE. Physical Exam - Vital signs Vitals: Temp Pulse Resp BP Pulse Ox 98.7 F 88 20 150/96 H 95 09/07/16 23:00 09/07/16 23:00 09/07/16 23:00 09/07/16 23:00 09/07/16 23:00 - Notes Notes: General Appearance: Well nourished, alert, cooperative, no acute distress, no obvious discomfort. Well Appearing. Vitals: reviewed, See vital signs table. Head: no swelling or tenderness to the head Eyes: PERRL, EOMI, Conjuctiva clear Mouth: No decreasd moisture Lungs: No wheezing, No rales, No rhonci, No accessory muscle use, good air exchange bilaterally. Heart: Normal rate, Regular rythm, No murmur, no rub Abdomen: Normal BS, soft, No rigidity, No abdominal tenderness, No guarding, no rebound, no abdominal masses, no organomegaly Extremities: strength 5/5 in all extremities, good pulses in all extremities, no swelling or tenderness in the extremities, no edema. Skin: warm, dry, appropriate color, no rash Neuro: speech clear, oriented x 3, normal affect, responds appropriately to questions. Cranial nerves 2 through 12 are intact. Patient was lower extremities without difficulty. Course - Vital Signs Vital signs: Temp Pulse Resp BP Pulse Ox 97.8 F 63 16 128/77 H 99 09/08/16 04:06 09/08/16 04:06 09/08/16 04:06 09/08/16 04:06 09/08/16 04:06 - Laboratory Result Diagrams: 09/07/16 23:29 09/07/16 23:29 Laboratory results interpreted by me: 09/07/16 09/07/16 23:29 23:29 RBC 3.93 L Hgb 12.7 L Hct 37.3 L Creatine Kinase 545 H - EKG Interpretation by Me Additional EKG results interpreted by me: 09/08/16 03:45 EKG is reviewed and interpreted by me. EKG shows normal sinus rhythm with rate of 66 bpm. Patient does have some concave up ST segment elevation which is unchanged in comparison to his previous EKG from August 22, 2016. There is no reciprocal ST segment depressions. MD interval, QRS duration, QTc intervals are within normal range. - Transfer of Care Notes: 09/08/16 04:39 Patient's laboratory evaluation is unremarkable. Lung francis are clear. Due to his recurrent chest pain was will place him on low-dose hydrochlorothiazide. I will have him take this daily until he sees his primary care physician, Dr. Fuentes. Also informed him that he must stop smoking. I informed him if he continues to smoke his blood pressure will continue to worsen and he will most likely still have some shortness of breath. Patient encouraged to return to ER if he has chest pain, recurrent shortness of breath, headaches, or if he feels unwell. Patient agrees with plan and will be discharged home. Dictation of this chart was performed using voice recognition software; therefore, there may be some unintended grammatical errors. Discharge - Discharge Clinical Impression: Tobacco abuse Hypertension Qualifiers: Hypertension type: essential hypertension Qualified Code(s): I10 - Essential ( primary) hypertension Dyspnea Qualifiers: Dyspnea type: unspecified Qualified Code(s): R06.00 - Dyspnea, unspecified Condition: Good Disposition: HOME, SELF-CARE Additional Instructions: HIGH BLOOD PRESSURE REQUIRING TREATMENT: Your blood pressure is high. This is called "hypertension." Your history and exam suggest that this is not a temporary problem. You need treatment of your blood pressure. If left untreated, high blood pressure greatly increases your risk of heart attack and stroke. Please don't ignore this problem. If you have blood pressure medicine but aren't using it regularly, start taking it again. Some simple things you can do to help are: Get some aerobic exercise for at least 20 minutes on a daily basis. (See your doctor before beginning any new exercise program.) Eat a low-fat diet. Lose excess weight. Avoid salty foods and avoid adding salt to any of the foods you eat. Avoid diet pills, decongestants, "energizing" herbs, and other medicines that elevate blood pressure. There are many different medicines that treat blood pressure. If your medication causes unpleasant side effects, call your doctor. There are others you can try. Treating hypertension is a life-long investment in your health. HYDROCHLOROTHIAZIDE: Hydrochlorothiazide is a diuretic medication. Diuretics are often called "water pills." The medicine flushes excess salt and water from the body. Diuretics are used for fluid retention (such as heart failure, cirrhosis, or lung disease) and for blood pressure control. Often hydrochlorothiazide is combined with other medicines in the same pill. Most patients prefer to take the medicine in the morning. Hydrochlorothiazide makes extra urine, which can be a problem if you take the pill at night. Diuretics make you lose potassium. Sometimes a good diet with plenty of fruit is enough to replace it. Sometimes a potassium supplement is necessary. Or, hydrochlorothiazide may be combined with medicines that prevent potassium loss. We usually recommend a blood potassium test in a few weeks. Contact your doctor if you develop extreme fatigue, muscle weakness, lethargy, confusion, or palpitations. FOLLOW-UP CARE: If you have been referred to a physician for follow-up care, call the physician s office for an appointment as you were instructed or within the next two days. If you experience worsening or a significant change in your symptoms, notify the physician immediately or return to the Emergency Department at any time for re-evaluation. Please quit smoking. Please follow up with Dr. Berg as scheduled. Please stop taking the blood pressure medication (Hydrochlorothiazide) if you feel very lightheaded or dizzy. Please return to the ER if you have chest pain, worsening or your symptoms, severe headache, or if you feel unwell. Prescriptions: Hydrochlorothiazide 12.5 mg PO DAILY #20 tablet
--- NOTE | 2016-09-08 03:53 | RADIOLOGY REPORT (SQ) ---
EXAM DESCRIPTION: CHEST PA/LAT COMPLETED DATE/TIME: 09/08/2016 3:29 am REASON FOR STUDY: cough, diff breathing COMPARISON: 9.20.15 EXAM PARAMETERS: NUMBER OF VIEWS: two views TECHNIQUE: Digital Frontal and Lateral radiographic views of the chest acquired. RADIATION DOSE: NA LIMITATIONS: none FINDINGS: LUNGS AND PLEURA: No opacities, masses or pneumothorax. No pleural effusion. Mild interst itial markings. MEDIASTINUM AND HILAR STRUCTURES: No masses or contour abnormalities. HEART AND VASCULAR STRUCTURES: Heart normal size. No evidence for failure. BONES: No acute findings. HARDWARE: None in the chest. OTHER: No other significant finding. IMPRESSION: No acute cardiopulmonary findings. TECHNICAL DOCUMENTATION: JOB ID: [id number] [employer]- All Rights Reserved
[2016-09-08 04:08] VITALS: BP 128/77
--- NOTE | 2016-09-08 12:41 | EKG REPORT ---
SEVERITY:- NORMAL ECG - SINUS RHYTHM ST ELEV, PROBABLE NORMAL EARLY REPOL PATTERN : Confirmed by: Vicki Zimmerman MD 08-Sep-2016 12:40:45
== END 2016-09-08 04:10 | disposition home or self-care (01) ==
LOC: ER 22:54
DX: R06.00 Dyspnea, unspecified (principal); I10 Essential (primary) hypertension; R06.02 Shortness of breath; F17.200 Nicotine dependence, unspecified, uncomplicated
CPT/HCPCS: 36415; 71020; 80053; 80307; 81001; 82550; 82553; 84484; 85025; 93005; 93010; 99284

== ENCOUNTER 2016-12-17 14:54 | Emergency (ER) | payer SELFPAY ==
[2016-12-17] MEDS ORDERED: KETOROLAC TROMETHAMINE INJ/PF 30 MG/1 ML SDV IV ONE (15:40)
[2016-12-17] MEDS ORDERED: METOCLOPRAMIDE HCL INJ/PF 10 MG/2 ML SDV IV ONE (15:40)
[2016-12-17] MEDS ORDERED: DIPHENHYDRAMINE HCL 50 MG/ML VIAL IV ONE (15:40)
--- NOTE | 2016-12-17 15:42 | ER Document Report ---
ED Medical Screen (RME) - General Chief Complaint: Headache Stated Complaint: HEADACHE Time Seen by Provider: 12/17/16 15:38 Notes: Patient states he has a history of migraines however this migraine is different than usual. He states was sudden onset of left-sided pain about 3 or 4 hours ago. He states he is laying down the pain started. He states he has vomiting. He states he has had a normal CT scan and MRI in the past but is not sure when those were done. TRAVEL OUTSIDE OF THE [place] IN LAST 30 DAYS: No - Related Data Allergies/Adverse Reactions: lactose [Lactose] Adverse Reaction (Mild, Verified 12/17/16 14:59) Nausea Past Medical History - Social History Chew tobacco use (# tins/day): No Frequency of alcohol use: None Drug Abuse: None Pulmonary Medical History: Reports: Hx Asthma Neurological Medical History: Reports: Hx Migraine Renal/ Medical History: Denies: Hx Peritoneal Dialysis Past Surgical History: Reports: Hx Abdominal Surgery - HERNIA, Hx Inguinal Hernia - Immunizations Immunizations up to date: Yes Hx Diphtheria, Pertussis, Tetanus Vaccination: No Physical Exam - Vital signs Vitals: Temp Pulse Resp BP Pulse Ox 98.4 F 62 12 147/91 H 97 12/17/16 14:59 12/17/16 14:59 12/17/16 14:59 12/17/16 14:59 12/17/16 14:59 Course - Vital Signs Vital signs: Temp Pulse Resp BP Pulse Ox 98.4 F 62 12 147/91 H 97 12/17/16 14:59 12/17/16 14:59 12/17/16 14:59 12/17/16 14:59 12/17/16 14:59
--- NOTE | 2016-12-17 16:08 | RADIOLOGY REPORT (SQ) ---
EXAM DESCRIPTION: CT HEAD WITHOUT COMPLETED DATE/TIME: 12/17/2016 3:57 pm REASON FOR STUDY: head left sided COMPARISON: 10/30/2010. TECHNIQUE: Axial images acquired through the brain without intravenous contrast. Images reviewed wi th bone, brain and subdural windows. Images stored on PACS. All CT scanners at this facility use dose modulation, iterative reconstruction, and/or weight based d osing when appropriate to reduce radiation dose to as low as reasonably achievable (ALARA). [facility]: Dose Right [facility]: CareDose [facility]: Dose Right [facility]: Teradose 4D [facility]: [employer] [place] [place] RADIATION DOSE: Up-to-date CT equipment and radiation dose reduction techniques were employed. CTDIv ol: 49.0 mGy. DLP: 783 mGy-cm. mGy. LIMITATIONS: None. FINDINGS: VENTRICLES: Normal size and contour. CEREBRUM: No masses. No hemorrhage. No midline shift. No evidence for acute infarction. Normal gra y/white matter differentiation. No areas of low density in the white matter. CEREBELLUM: No masses. No hemorrhage. No alteration of density. No evidence for acute infarction. EXTRAAXIAL SPACES: No fluid collections. No masses. ORBITS AND GLOBE: No intra- or extraconal masses. Normal contour of globe without masses. CALVARIUM: No fracture. PARANASAL SINUSES: No fluid or mucosal thickening. SOFT TISSUES: No mass or hematoma. OTHER: No other significant finding. IMPRESSION: NORMAL BRAIN CT WITHOUT CONTRAST. EVIDENCE OF ACUTE STROKE: NO. COMMENT: Quality ID # [id number]: Final reports with documentation of one or more dose reduction techniques (e.g., Automated exposure control, adjustment of the mA and/or kV according to patient size, use of iterative reconstruction technique) TECHNICAL DOCUMENTATION: JOB ID: [id number] All Rights Reserved
--- NOTE | 2016-12-17 17:27 | ER Document Report ---
ED Headache - General Chief Complaint: Headache Stated Complaint: HEADACHE Time Seen by Provider: 12/17/16 15:38 Mode of Arrival: Ambulatory Information source: Patient Notes: Patient has a history of migraines. He states about 3 hours before arrival he had the sudden onset of left-sided headache. He states the pain is constant and severe. It is throbbing. He states it radiates on the left side of his face. He states it is worse with movement or light and better with rest. He states it does feel similar to previous migraines. He has had some vomiting. TRAVEL OUTSIDE OF THE [place] IN LAST 30 DAYS: No - Related Data Allergies/Adverse Reactions: lactose [Lactose] Adverse Reaction (Mild, Verified 12/17/16 14:59) Nausea Past Medical History - General Information source: Patient - Social History Smoking Status: Current Some Day Smoker Chew tobacco use (# tins/day): No Frequency of alcohol use: None Drug Abuse: None Family History: Reviewed & Not Pertinent Pulmonary Medical History: Reports: Hx Asthma Neurological Medical History: Reports: Hx Migraine Renal/ Medical History: Denies: Hx Peritoneal Dialysis Past Surgical History: Reports: Hx Abdominal Surgery - HERNIA, Hx Inguinal Hernia - Immunizations Immunizations up to date: Yes Hx Diphtheria, Pertussis, Tetanus Vaccination: No Review of Systems - Review of Systems Constitutional: Malaise, Weakness. denies: Chills Cardiovascular: denies: Chest pain, Palpitations Respiratory: denies: Cough, Short of breath -: Yes All other systems reviewed and negative Physical Exam - Vital signs Vitals: Temp Pulse Resp BP Pulse Ox 98.4 F 62 12 147/91 H 97 12/17/16 14:59 12/17/16 14:59 12/17/16 14:59 12/17/16 14:59 12/17/16 14:59 Interpretation: Hypertensive - General General appearance: Appears well, Alert - HEENT Head: Normocephalic, Atraumatic Eyes: Normal Pupils: PERRL - Respiratory Respiratory status: No respiratory distress Chest status: Nontender Breath sounds: Normal Chest palpation: Normal - Cardiovascular Rhythm: Regular Heart sounds: Normal auscultation Murmur: No - Abdominal Inspection: Normal Distension: No distension Bowel sounds: Normal Tenderness: Nontender Organomegaly: No organomegaly - Back Back: Normal, Nontender - Extremities General upper extremity: Normal inspection, Nontender, Normal color, Normal ROM , Normal temperature General lower extremity: Normal inspection, Nontender, Normal color, Normal ROM , Normal temperature, Normal weight bearing. No: Mallory's sign - Neurological Neuro grossly intact: Yes Cognition: Normal Orientation: AAOx4 [place] Coma Scale Eye Opening: Spontaneous [place] Coma Scale Verbal: Oriented [place] Coma Scale Motor: Obeys Commands [place] Coma Scale Total: 15 Speech: Normal Motor strength normal: LUE, RUE, LLE, RLE Sensory: Normal - Psychological Associated symptoms: Normal affect, Normal mood - Skin Skin Temperature: Warm Skin Moisture: Dry Skin Color: Normal Course - Vital Signs Vital signs: Temp Pulse Resp BP Pulse Ox 98.4 F 62 12 147/91 H 97 12/17/16 14:59 12/17/16 14:59 12/17/16 14:59 12/17/16 14:59 12/17/16 14:59 - Diagnostic Test Radiology reviewed: Image reviewed, Reports reviewed - Patient has no acute pathology on CT scan Discharge - Discharge Clinical Impression: Migraine Condition: Stable Disposition: HOME, SELF-CARE Instructions: Headache ([facility]) Additional Instructions: Please follow-up with your primary care physician as soon as possible Prescriptions: Butalb/Acetaminophen/Caffeine [Fioricet (50-325-40 mg) Tablet] 1 tab PO Q4HP PRN #30 tab PRN Reason: Forms: Elevated Blood Pressure
[2016-12-17 17:41] VITALS: BP 148/87
== END 2016-12-17 17:40 | disposition home or self-care (01) ==
LOC: ER 14:54
DX: G43.909 Migraine, unspecified, not intractable, without status migrainosus (principal); F17.200 Nicotine dependence, unspecified, uncomplicated
CPT/HCPCS: 99284; 96374; 96375; 70450; J1200; J1885; J2765

== ENCOUNTER 2017-01-11 02:20 | Emergency (ER) | payer OTHER ==
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
[2017-01-11 03:49] VITALS: BP 148/91
== END 2017-01-11 03:30 | disposition home or self-care (01) ==
LOC: ER 02:20
DX: S09.90XA Unspecified injury of head, initial encounter (principal); M54.2 Cervicalgia; F17.200 Nicotine dependence, unspecified, uncomplicated; V43.52XA Car driver injured in collision with other type car in traffic accident, initial encounter
CPT/HCPCS: 99284; 70450; 72125; L0120

== ENCOUNTER 2019-03-19 20:47 | Emergency (ER) | payer SELFPAY ==
[2019-03-19] MEDS ORDERED: NORMAL SALINE 1000 ML 1,000 ML IV ONE (21:04)
[2019-03-19] MEDS ORDERED: ONDANSETRON HCL INJ/PF 4 MG/2 ML SDV IV ONE (21:04)
--- NOTE | 2019-03-19 21:06 | ER Document Report ---
ED Medical Screen (RME) - General Chief Complaint: Vomiting Stated Complaint: VOMITING BLOOD,BACK PAIN,SHORTNESS OF BREATH Time Seen by Provider: 03/19/19 21:01 TRAVEL OUTSIDE OF THE [place] IN LAST 30 DAYS: No - HPI Notes: 03/19/19 21:05 Patient is a 38-year-old male who presents complaining of nausea and vomiting with epigastric and right upper quadrant pain that began this evening. Patient states that he did have one episode of red blood. Patient states he has been having pain in his right flank/right mid back area as well which she has had for several months. He is urinating normally and having normal bowel movements without any melena or hematochezia. Denies fever. No chest pain or shortness of breath. I have treated and performed a rapid initial assessment of this patient. A comprehensive ED assessment and evaluation of the patient, analysis of test results and completion of medical decision making process will be conducted by additional ED providers. PHYSICAL EXAMINATION: GENERAL: Well-appearing, well-nourished and in no acute distress. A&Ox4. Answers questions appropriately. Abdomen: Limited exam in triage, but patient's abdomen is tender in the right upper quadrant. - Related Data Allergies/Adverse Reactions: lactose [Lactose] Adverse Reaction (Mild, Verified 12/17/16 14:59) Nausea Past Medical History - Past Medical History Cardiac Medical History: Reports: Hx Hypertension Pulmonary Medical History: Reports: Hx Asthma Neurological Medical History: Reports: Hx Migraine Renal/ Medical History: Denies: Hx Peritoneal Dialysis Past Surgical History: Reports: Hx Abdominal Surgery - HERNIA, Hx Inguinal Hernia - Immunizations Immunizations up to date: Yes Hx Diphtheria, Pertussis, Tetanus Vaccination: No Physical Exam - Vital signs Vitals: Temp Pulse Resp BP Pulse Ox 98.1 F 87 18 149/89 H 97 03/19/19 20:57 03/19/19 20:57 03/19/19 20:57 03/19/19 20:57 03/19/19 20:57 Course - Vital Signs Vital signs: Temp Pulse Resp BP Pulse Ox 98.1 F 87 18 149/89 H 97 03/19/19 20:57 03/19/19 20:57 03/19/19 20:57 03/19/19 20:57 03/19/19 20:57
[2019-03-19 21:55] LABS: APPEARANCE,URINE CLEAR; BILIRUBIN,URINE NEGATIVE (NEGATIVE); COLOR,URINE YELLOW; GLUCOSE, URINE NEGATIVE (NEGATIVE); KETONES,URINE TRACE mg/dL (NEGATIVE); LEUKOCYTE ESTERASE,URINE NEGATIVE (NEGATIVE); NITRITE,URINE NEGATIVE (NEGATIVE); PROTEIN,URINE 30 mg/dL (NEGATIVE); URINE SPECIFIC GRAVITY 1.034
[2019-03-19 22:52] LABS: ABSOLUTE EOSINOPHILS # (AUTO) 0.1 10^3/uL (0.0-0.6); ABSOLUTE LYMPHOCYTES (AUTO) 1.2 10^3/uL (0.5-4.7); ABSOLUTE MONOCYTES (AUTO) 0.5 10^3/uL (0.1-1.4); ABSOLUTE NEUT (AUTO) 9.5 10^3/uL (1.7-8.2); BASOPHILS % (AUTO) 0.2 % (0-2); HEMATOCRIT 40.6 % (37.9-51.0); HEMOGLOBIN 14.1 g/dL (13.5-17.0); LYMPHOCYTES % (AUTO) 10.5 % (13-45); MEAN CORPUSCULAR HEMOGLOBIN 34.2 pg (27.0-33.4); MEAN CORPUSCULAR HGB CONC 34.7 g/dL (32.0-36.0); MEAN CORPUSCULAR VOLUME 98 fl (80-97); MONOCYTES % (AUTO) 4.7 % (3-13); PLATELET COUNT 251 10^3/uL (150-450); RED BLOOD COUNT 4.13 10^6/uL (4.35-5.55); RED CELL DISTRIBUTION WIDTH 12.1 % (11.5-14.0); SEGMENTED NEUTROPHILS % (AUTO) 83.6 % (42-78); TOTAL CELLS COUNTED % (AUTO) 100 %; WHITE BLOOD COUNT 11.4 10^3/uL (4.0-10.5)
--- NOTE | 2019-03-19 22:59 | RADIOLOGY REPORT (SQ) ---
EXAM DESCRIPTION: US ABDOMEN LIMITED COMPLETED DATE/TME: 03/19/2019 21:04 CLINICAL HISTORY: 38 years, Male, RUQ pain COMPARISON: None. TECHNIQUE: Limited right upper quadrant ultrasound LIMITATIONS: None. FINDINGS: The liver is homogenous in echotexture without focal lesion. No gallstones or gallbladder wall thickening. CBD measures 4 mm. Visualized pancreas, abdominal aorta, inferior vena cava, right kidney unremarkable. Ascites IMPRESSION: Unremarkable exam copyright 2010 [employer]- All Rights Reserved
[2019-03-19 23:14] LABS: ALBUMIN 4.5 g/dL (3.5-5.0); ALKALINE PHOSPHATASE 45 U/L (38-126); ANION GAP 11 (5-19); ASPARTATE AMINO TRANSFERASE 61 U/L (17-59); BILIRUBIN,DIRECT 0.2 mg/dL (0.0-0.4); BILIRUBIN,TOTAL 0.8 mg/dL (0.2-1.3); BLOOD UREA NITROGEN 19 mg/dL (7-20); CALCIUM 9.3 mg/dL (8.4-10.2); CARBON DIOXIDE 32 mmol/L (22-30); CHLORIDE 98 mmol/L (98-107); GLUCOSE 105 mg/dL (75-110); POTASSIUM 3.7 mmol/L (3.6-5.0)
--- NOTE | 2019-03-19 23:15 | ER Document Report ---
ED GI/ - General Chief Complaint: Abdominal Pain Stated Complaint: VOMITING BLOOD,BACK PAIN,SHORTNESS OF BREATH Time Seen by Provider: 03/19/19 21:01 Primary Care Provider: [facility] [Provider Group] - Follow up as needed [facility] [Provider Group] - Follow up as needed [facility] [Provider Group] - Follow up as needed [facility] [Provider Group] - Follow up as needed [facility] [Provider Group] - Follow up as needed Mode of Arrival: Ambulatory Information source: Patient Notes: 38-year-old male presented to ED for complaint of abdominal pain nausea and vomiting with right upper quadrant and right flank pain off and on for about the last 6 months. He states is been present for that long and they told him that he needed an MRI to his kidney. He states he just got out of alf about a week ago and he came in here because he is continuing to have his right flank to the back and abdomen pain. He states he did vomit one time with a little bit of blood in it today. He states he has not had any problems urinating normal bowel movements with no blood in his stools no chest pain no shortness of breath no fevers. He has had blood in urine and right upper quadrant ultrasound completed. The right kidney is negative the right upper quadrant ultrasound is negative for any acute processes. He is afebrile urine does not show any blood or infection. TRAVEL OUTSIDE OF THE [place] IN LAST 30 DAYS: No - HPI Patient complains to provider of: Abdominal pain, Flank pain, Vomiting Onset: Other Timing/Duration: Intermittent - Intermittently for 6 months Quality of pain: Sharp Severity at maximum: Severe Severity in ED: Moderate Pain Level: 3 Location: RUQ, Right flank Associated symptoms: Nausea, Vomiting. denies: Hematuria Exacerbated by: Denies Relieved by: Denies Similar symptoms previously: Yes Recently seen / treated by doctor: No - Related Data Allergies/Adverse Reactions: lactose [Lactose] Adverse Reaction (Mild, Verified 12/17/16 14:59) Nausea Home Medications: cymbalta Past Medical History - General Information source: Patient - Social History Smoking Status: Current Every Day Smoker Cigarette use (# per day): Yes - Half a pack a day Smoking Education Provided: Yes - 4 minutes Frequency of alcohol use: None Drug Abuse: None Lives with: Parents Family History: Reviewed & Not Pertinent Patient has suicidal ideation: No Patient has homicidal ideation: No - Past Medical History Cardiac Medical History: Reports: Hx Hypertension Pulmonary Medical History: Reports: Hx Asthma EENT Medical History: Reports: None Neurological Medical History: Reports: Hx Migraine Endocrine Medical History: Reports: None Renal/ Medical History: Reports: None Malignancy Medical History: Reports None GI Medical History: Reports: Hx Gastritis, Hx Gastroesophageal Reflux Disease, Hx Ulcer, Hx Endoscopy Musculoskeletal Medical History: Reports Hx Musculoskeletal Trauma Skin Medical History: Reports None Psychiatric Medical History: Reports: Hx Anxiety Traumatic Medical History: Reports: Hx Fractures - Fingers and nose Infectious Medical History: Reports: None Past Surgical History: Reports: Hx Inguinal Hernia - Immunizations Immunizations up to date: Yes Hx Diphtheria, Pertussis, Tetanus Vaccination: Yes - 2016 Review of Systems - Review of Systems Constitutional: No symptoms reported EENT: No symptoms reported Cardiovascular: No symptoms reported Respiratory: No symptoms reported Gastrointestinal: Abdominal pain, Nausea, Vomiting Genitourinary: Flank pain Male Genitourinary: No symptoms reported Musculoskeletal: No symptoms reported Skin: No symptoms reported Hematologic/Lymphatic: No symptoms reported Neurological/Psychological: No symptoms reported -: Yes All other systems reviewed and negative Physical Exam - Vital signs Vitals: Temp Pulse Resp BP Pulse Ox 98.1 F 87 18 149/89 H 97 03/19/19 20:57 03/19/19 20:57 03/19/19 20:57 03/19/19 20:57 03/19/19 20:57 Interpretation: Normal - General General appearance: Appears well, Alert - HEENT Head: Normocephalic, Atraumatic Eyes: Normal Pupils: PERRL - Respiratory Respiratory status: No respiratory distress Chest status: Nontender Breath sounds: Normal Chest palpation: Normal - Cardiovascular Rhythm: Regular Heart sounds: Normal auscultation Murmur: No - Abdominal Inspection: Normal Distension: No distension Bowel sounds: Normal Tenderness: Tender. No: Guarding Organomegaly: No organomegaly. No: Hepatomegaly, Splenomegaly, Mass - Back Back: Normal, Nontender - Extremities General upper extremity: Normal inspection, Nontender, Normal color, Normal ROM, Normal temperature General lower extremity: Normal inspection, Nontender, Normal color, Normal ROM, Normal temperature, Normal weight bearing. No: Mallory's sign - Neurological Neuro grossly intact: Yes Cognition: Normal Orientation: AAOx4 [place] Coma Scale Eye Opening: Spontaneous [place] Coma Scale Verbal: Oriented Domitila Coma Scale Motor: Obeys Commands Domitila Coma Scale Total: 15 Speech: Normal Motor strength normal: LUE, RUE, LLE, RLE Sensory: Normal - Psychological Associated symptoms: Normal affect, Normal mood - Skin Skin Temperature: Warm Skin Moisture: Dry Skin Color: Normal Course - Re-evaluation Re-evalutation: 03/19/19 23:23 , On labs and ultrasound are unremarkable for his pain. I have discussed the labs and ultrasound results with Dr. Vázquez and he agrees with my plan to get CT IV contrast of her abdomen and pelvis. I have reviewed this with the patient and the CT abdomen pelvis has been ordered. - Vital Signs Vital signs: Temp Pulse Resp BP Pulse Ox 98.2 F 72 16 137/66 H 99 03/20/19 03:51 03/20/19 03:51 03/20/19 03:51 03/20/19 03:51 03/20/19 03:51 - Laboratory Result Diagrams: 03/19/19 21:46 03/19/19 21:46 Laboratory results interpreted by me: 03/19/19 03/19/19 03/19/19 21:15 21:46 21:46 WBC 11.4 H RBC 4.13 L MCV 98 H MCH 34.2 H Lymph % (Auto) 10.5 L Absolute Neuts (auto) 9.5 H Seg Neutrophils % 83.6 H Carbon Dioxide 32 H Creatinine 1.45 H Est GFR (MDRD) Non-Af 55 L AST 61 H Urine Protein 30 H Urine Ketones TRACE H Urine Urobilinogen 2.0 H - Diagnostic Test Radiology reviewed: Image reviewed, Reports reviewed Discharge - Discharge Clinical Impression: Right flank pain Condition: Stable Disposition: HOME, SELF-CARE Additional Instructions: Flank Pain We weren't able to prove an exact cause for your flank pain. Pain in the flank can be caused by a muscle strain or spasm. Sometimes a kidney stone causes pain, but can't be found on our tests. Infection in the kidney should be evident on a urine test. Early shingles can occasionally cause flank pain, without the rash that proves the diagnosis. On rare occasions, disease of the pancreas, aorta, spleen, or colon can create pain in the flank. At this time, there's no evidence of a dangerous condition, and it seems safe for you to be at home. If the pain goes away and does not come back, no further testing will be needed. If pain persists, or becomes more severe, we may need to repeat some tests or order additional new testing. Blood in the urine, urgency to urinate frequently, and pain that radiates to the groin can indicate a kidney stone. Fever may mean that the pain is due to infection, either of the kidney or the colon (diverticulitis). If your pain is early shingles, you should develop an eruption of blisters in the painful area within a few days. Call the doctor or return if you have pain that is spreading or becoming more severe, pain that does not resolve with time, fever, or any other new symptoms. Your CT, ultrasound, and labs work do not show any acute processes to cause your right flank pain. Have given you a written report of each of these to take to your primary doctor for follow-up. Toradol Injection You have been given an injection of ketorolac tromethamine (Toradol). This is an excellent, safe drug for pain control. It also has potent antiinflammatory action. You should have significant pain relief within about one hour. Toradol is not addicting and is non-sedating. It does not interfere with driving or work. Call or return if you develop itching, hives, shortness of breath, or rash. Antinausea Medication You have been given a medication to suppress nausea and vomiting. This type of medication can be given as a shot, pill, or suppository. It will usually las t for many hours. Pills and shots usually last six to eight hours, suppositories last about 12 hours. For the typical illness, only one or two doses of the medication may be necessary. Mild lightheadedness may occur. This type of medicine can cause drowsiness. Do not drive or operate dangerous machinery while under its influence. Do not mix with alcohol. See your doctor at once if you have muscle spasms or tightness, or uncontrollable motions (particularly of the neck, mouth, or jaw). Persistent vomiting or severe lightheadedness should also be evaluated by the physician. Acetaminophen Acetaminophen may be taken for pain relief or fever control. It's much safer than aspirin, offering a wider range of "safe" dosages. It is safe during . Some brand names are Tylenol, Panadol, Datril, Anacin 3, Tempra, and Liquiprin. Acetaminophen can be repeated every four hours. The following are maximum recommended dosages: WEIGHT Dose Drops Elixir Chewable(80mg) (LBS.) drprs=droppers tsp=teaspoon 6 40 mg .4 ml (1/2) 6-11 80 mg .8 ml (full) 1/2 tsp 1 tab 12-16 120 mg 1 1/2 drprs 3/4 tsp 1 1/2 tabs 17-23 160 mg 2 drprs 1 tsp 2 tabs 24-30 240 mg 3 drprs 1 1/2 tsp 3 tabs 30-35 320 mg 2 tsp 4 tabs 36-41 360 mg 2 1/4 tsp 4 1/2 tabs 42-47 400 mg 2 1/2 tsp 5 tabs 48-53 480 mg 3 tsp 6 tabs 54-59 520 mg 3 1/4 tsp 6 1/2 tabs 60-64 560 mg 3 1/2 tsp 7 tabs 65-70 600 mg 3 3/4 tsp 7 1/2 tabs 71-76 640 mg 4 tsp 8 tabs 77-82 720 mg 4 1/2 tsp 9 tabs 83-88 800 mg 5 tsp 10 tabs >89 pounds or adults 650 mg to 900 mg Acetaminophen can be repeated every four hours. Maximum daily dose not to exceed 4000 mg. These maximum recommended dosages are slightly higher than the dosages written on the product container, but these dosages are very safe and well below the toxic dosage for acetaminophen. Ibuprofen Ibuprofen is an excellent, safe drug for pain control. In addition, it has potent antiinflammatory effects which are beneficial, especially in the treatment of injuries, arthritis, or tendonitis. It's best to take ibuprofen with food. Persons with ulcer disease or allergy to aspirin should notify their physician of this before taking ibuprofen. Take the medication exactly as prescribed. Don't take additional doses unless instructed to do so by your doctor. If you develop wheezing, shortness of breath, hives, faintness, stomach pain, vomiting, or dark black stools, return for re-evaluation at once. Muscle Relaxers Muscle relaxing medications are usually prescribed for acute muscle spasm or injury to the neck and back. They are often combined with antiinflammatory pain medication for increased relief. You may stop the muscle relaxer when the pain and stiffness have improved. Start the medication again if spasms recur. Muscle relaxers may cause drowsiness, especially with the first dose. Do not operate machinery or drive while under the effects of the medication. Most muscle relaxers last up to 24 hours. Do not combine the medication with alcohol. Ice Packs Apply ice packs frequently against the painful area. Many different schedules are recommended, such as "20 minutes on, 20 minutes off" or "one hour ice, two hours rest." If you need to work, you may need to go longer between ice treatments. You should plan to have the area ice packed AT LEAST one fourth of the time. The ice should be applied over the wrap, tape, or splint, or over a layer of cloth -- not directly against the skin. Some ice bags have a built-in cloth and can be put directly on the skin. Warm Packs After approximately two days, apply gentle heat (such as a heating pad or hot water bottle) for about 20 to 30 minutes about every two hours -- at least four times daily. Warmth and elevation will help you make a more rapid recovery, and will ease the pain considerably. Do not use HOT heat, and never apply heat for longer than 30 minutes. The continuous heat can invisibly damage skin and muscles -- even when no burn is seen on the surface. Damaged muscles can make you MORE sore. Stretching Exercises for the Back The physician has recommended that you begin stretching exercises for your back. These are often used even while the back is painful. However, you should notify the physician if the activities seem to increase your pain. PELVIC TILT: Lie flat on your back with knees bent. Tighten your stomach and buttock muscles so it flattens your lower back against the floor. Hold 10 seconds. Repeat 10 times, twice daily. KNEE RAISE: Lying on the back with knees bent, raise one knee to your chest, then the other. Hold both knees against the chest 10 seconds, then lower one knee at a time. Repeat 10 times, twice daily. PARTIAL TRUNK RAISE: Lie face down, arms at your sides. Keeping your waist on the floor, use your arms raise your chest up. Support yourself on your elbows for 30 seconds. Repeat twice daily, increasing the time to two minutes as you recover. FOLLOW-UP CARE: If you have been referred to a physician for follow-up care, call the physician s office for an appointment as you were instructed or within the next two days. If you experience worsening or a significant change in your symptoms, notify the physician immediately or return to the Emergency Department at any time for re-evaluation. Prescriptions: Cyclobenzaprine HCl [Flexeril 10 mg Tablet] 10 mg PO TIDP PRN #15 tab PRN Reason: Ondansetron [Zofran Odt 4 mg Tablet] 1 tab PO Q6H #15 tab.rapdis Forms: Elevated Blood Pressure, Smoking Cessation Education Referrals: [facility] [Provider Group] - Follow up as needed [facility] [Provider Group] - Follow up as needed [facility] [Provider Group] - Follow up as needed [facility] [Provider Group] - Follow up as needed [facility] [[facility]] - Follow up as needed
[2019-03-20] MEDS ORDERED: KETOROLAC TROMETHAMINE INJ/PF 30 MG/1 ML SDV IV ONE (01:52)
[2019-03-20] MEDS ORDERED: ONDANSETRON HCL INJ/PF 4 MG/2 ML SDV IV ONE (01:58)
--- NOTE | 2019-03-20 02:47 | RADIOLOGY REPORT (SQ) ---
EXAM: CT abdomen and pelvis with IV contrast CLINICAL DATA: 38-year-old male with right-sided abdominal pain and flank pain TECHNICAL DATA: Axial CT imaging of the abdomen and pelvis was performed following the administration of intravenous contrast.. Sagittal and coronal reconstructed images were then performed. The CT study is performed according to ALARA (as low as reasonably achievable) or ALARA/IMAGE GENTLY, with automatic adjustment of mA and/or kV according to patient size. Performed on: 03/20/2019 at 2:06 AM. Comparison: Prior CT abdomen and pelvis with contrast performed on 05/29/2015 FINDINGS: Lung bases: The lung bases are clear. Liver:The liver is normal in size and configuration. No focal hepatic abnormalities are identified. Liver attenuation is within normal limits. Spleen:The spleen is normal is size, configuration and attenuation. Gallbladder and bile duct: The gallbladder is well distended and unremarkable. There is no biliary ductal dilatation. Pancreas: The pancreas is grossly normal in size and configuration. Adrenal Glands:The adrenal glands are normal in size and configuration. Kidneys:The kidneys are normal in size and configuration. There is no evidence of hydronephrosis. There is no evidence of nephrolithiasis. There is a stable tiny focal hypodensity along the cortex of the right kidney which is too small to characterize. Stomach:The stomach is grossly normal. There is no definite hiatal hernia. Bowel:The bowel gas pattern is non specific and non obstructive. Appendix: The appendix is normal. Free air:There is no evidence of free air. Free fluid: There is no evidence of free fluid. Vasculature: The aorta is normal in caliber and contour. The inferior vena cava is grossly unremarkable. Lymphadenopathy: No pathologic lymphadenopathy is identified. Bladder: The bladder is incompletely distended on this examination but appears grossly unremarkable Reproductive: The prostate gland is grossly within normal limits. Bones: No acute osseous abnormalities are identified. Soft tissues: No focal soft tissue abnormalities are identified. There is a very small fat-containing ventral umbilical hernia. IMPRESSION: 1. No evidence of acute intra-abdominal or intrapelvic pathology. 2. No focal abnormalities are identified to explain the patient's right-sided symptoms.
[2019-03-20] MEDS ORDERED: CYCLOBENZAPRINE HCL 10 MG TABLET PO ONE (03:24)
[2019-03-20 03:53] VITALS: BP 137/66
--- NOTE | 2019-03-20 07:43 | EKG REPORT ---
SEVERITY:- OTHERWISE NORMAL ECG - SINUS RHYTHM BORDERLINE RIGHT AXIS DEVIATION : Confirmed by: Leo Contreras MD 20-Mar-2019 07:42:42
== END 2019-03-20 03:51 | disposition home or self-care (01) ==
LOC: ER 20:47
DX: R10.11 Right upper quadrant pain (principal); R11.2 Nausea with vomiting, unspecified; F17.210 Nicotine dependence, cigarettes, uncomplicated
CPT/HCPCS: 93005; 96376; 99406; 99284; 96361; 96374; 96375; 36415; 83690; 85025; 80053; 81001; 76705; 74177; 93010; J1885; J2405 ×2; J7030

== ENCOUNTER 2019-03-30 13:06 | Emergency (ER) | payer OTHER ==
[2019-03-30] MEDS ORDERED: HYDROCODONE/ACETAMINOPHEN 5-325 MG TABLET PO ONE (14:45)
[2019-03-30] MEDS ORDERED: DIPH/PERTUSS(ACELL)/TETANUS VAC/PF 0.5 ML SYR (>=10YO) IM ONE (14:45)
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
[2019-03-30] MEDS ORDERED: METHOCARBAMOL 500 MG TABLET PO ONE (15:47)
[2019-03-30] MEDS ORDERED: IBUPROFEN 800 MG TABLET PO ONE (15:47)
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
[2019-03-30 17:31] VITALS: BP 142/90
== END 2019-03-30 17:34 | disposition home or self-care (01) ==
LOC: ER 13:06
DX: S16.1XXA Strain of muscle, fascia and tendon at neck level, initial encounter (principal); S09.90XA Unspecified injury of head, initial encounter; S83.91XA Sprain of unspecified site of right knee, initial encounter; M54.9 Dorsalgia, unspecified; R11.0 Nausea; V87.7XXA Person injured in collision between other specified motor vehicles (traffic), initial encounter; F17.200 Nicotine dependence, unspecified, uncomplicated; I10 Essential (primary) hypertension; Z23 Encounter for immunization
CPT/HCPCS: 99284; 90471; 73564; 72110; 72070; 70480; 72125; 90715; L0120

== ENCOUNTER 2019-05-07 00:09 | Emergency (ER) | payer OTHER ==
--- NOTE | 2019-05-07 00:52 | ER Document Report ---
ED Medical Screen (RME) - General Chief Complaint: Abdominal Pain Stated Complaint: ABDOMINAL PAIN, KIDNEY PAIN, SOB Notes: Patient is a 38-year-old -[place] male with a past medical history of hypertension who presents to the emergency department tonight with a chief complaint of abdominal pain, back pain, headache and generally feeling unwell for the past several days. Admits to some associated nausea and vomiting. Denies any known fevers. Denies diarrhea. No recent travel. I have treated and performed a rapid initial assessment of this patient. A comprehensive ED assessment and evaluation of the patient, analysis of test results and completion of medical decision making process will be conducted by additional ED providers. PHYSICAL EXAMINATION: GENERAL: Well-appearing, well-nourished and in no acute distress. A&Ox4. Answers questions appropriately. TRAVEL OUTSIDE OF THE [place] IN LAST 30 DAYS: No - Related Data Allergies/Adverse Reactions: lactose [Lactose] Adverse Reaction (Mild, Verified 12/17/16 14:59) Nausea Past Medical History - Past Medical History Cardiac Medical History: Reports: Hx Hypertension Pulmonary Medical History: Reports: Hx Asthma Neurological Medical History: Reports: Hx Migraine Renal/ Medical History: Denies: Hx Peritoneal Dialysis GI Medical History: Reports: Hx Gastritis, Hx Gastroesophageal Reflux Disease, Hx Ulcer, Hx Endoscopy Musculoskeltal Medical History: Reports Hx Musculoskeletal Trauma Psychiatric Medical History: Reports: Hx Anxiety Traumatic Medical History: Reports: Hx Fractures - Fingers and nose Past Surgical History: Reports: Hx Abdominal Surgery - HERNIA, Hx Inguinal Hernia - Immunizations Immunizations up to date: Yes Hx Diphtheria, Pertussis, Tetanus Vaccination: Yes - 2016 Physical Exam - Vital signs Vitals: Temp Pulse Resp BP Pulse Ox 98.1 F 78 16 132/90 H 99 05/07/19 00:22 05/07/19 00:22 05/07/19 00:05/07/19 00:05/07/19 00:22 Course - Vital Signs Vital signs: Temp Pulse Resp BP Pulse Ox 98.1 F 78 16 132/90 H 99 05/07/19 00:22 05/07/19 00:22 05/07/19 00:22 05/07/19 00:22 05/07/19 00:22
[2019-05-07 01:15] LABS: ABSOLUTE BASOPHILS # (AUTO) 0.1 10^3/uL (0.0-0.2); ABSOLUTE EOSINOPHILS # (AUTO) 0.2 10^3/uL (0.0-0.6); ABSOLUTE LYMPHOCYTES (AUTO) 2.9 10^3/uL (0.5-4.7); ABSOLUTE MONOCYTES (AUTO) 0.7 10^3/uL (0.1-1.4); ABSOLUTE NEUT (AUTO) 4.3 10^3/uL (1.7-8.2); BASOPHILS % (AUTO) 0.7 % (0-2); EOSINOPHILS % (AUTO) 2.8 % (0-6); HEMATOCRIT 41.4 % (37.9-51.0); HEMOGLOBIN 14.4 g/dL (13.5-17.0); LYMPHOCYTES % (AUTO) 35.6 % (13-45); MEAN CORPUSCULAR HEMOGLOBIN 33.8 pg (27.0-33.4); MEAN CORPUSCULAR HGB CONC 34.7 g/dL (32.0-36.0); MEAN CORPUSCULAR VOLUME 97 fl (80-97); MONOCYTES % (AUTO) 8.6 % (3-13); PLATELET COUNT 289 10^3/uL (150-450); RED BLOOD COUNT 4.25 10^6/uL (4.35-5.55); RED CELL DISTRIBUTION WIDTH 12.4 % (11.5-14.0); SEGMENTED NEUTROPHILS % (AUTO) 52.3 % (42-78); TOTAL CELLS COUNTED % (AUTO) 100 %; WHITE BLOOD COUNT 8.3 10^3/uL (4.0-10.5)
[2019-05-07 01:33] LABS: ALBUMIN 4.7 g/dL (3.5-5.0); ALKALINE PHOSPHATASE 46 U/L (38-126); ANION GAP 10 (5-19); ASPARTATE AMINO TRANSFERASE 41 U/L (17-59); BILIRUBIN,DIRECT 0.3 mg/dL (0.0-0.4); BILIRUBIN,TOTAL 0.5 mg/dL (0.2-1.3); BLOOD UREA NITROGEN 21 mg/dL (7-20); CALCIUM 9.7 mg/dL (8.4-10.2); CARBON DIOXIDE 31 mmol/L (22-30); CHLORIDE 97 mmol/L (98-107); GLUCOSE 129 mg/dL (75-110); TOTAL PROTEIN 8.5 g/dL (6.3-8.2)
[2019-05-07 01:39] LABS: APPEARANCE,URINE SLIGHTLY-CLOUDY; BILIRUBIN,URINE NEGATIVE (NEGATIVE); COLOR,URINE YELLOW; GLUCOSE, URINE NEGATIVE (NEGATIVE); KETONES,URINE NEGATIVE (NEGATIVE); LEUKOCYTE ESTERASE,URINE NEGATIVE (NEGATIVE); NITRITE,URINE NEGATIVE (NEGATIVE); PROTEIN,URINE NEGATIVE (NEGATIVE); URINE SPECIFIC GRAVITY 1.019; UROBILINOGEN,URINE NEGATIVE mg/dL (<2.0)
[2019-05-07] MEDS ORDERED: KETOROLAC TROMETHAMINE INJ/PF 30 MG/1 ML SDV IV ONE (04:04)
[2019-05-07] MEDS ORDERED: ONDANSETRON HCL INJ/PF 4 MG/2 ML SDV IV ONE (04:04)
[2019-05-07] MEDS ORDERED: NORMAL SALINE 1000 ML 1,000 ML IV ONE (04:04)
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
[2019-05-07] MEDS ORDERED: ONDANSETRON 4 MG TAB.RAPDIS PO ONE (04:34)
--- NOTE | 2019-05-07 04:37 | RADIOLOGY REPORT (SQ) ---
EXAM DESCRIPTION: XR CHEST 1 VIEW COMPLETED DATE/TME: 05/07/2019 04:05 CLINICAL HISTORY: 38 years Male, cough COMPARISON: None. NUMBER OF VIEWS/TECHNIQUE: 1/AP FINDINGS: Adequate lung volume, clear parenchyma, normal cardiac silhouette, and intact bony thorax. IMPRESSION: No acute cardiopulmonary findings.
[2019-05-07] MEDS ORDERED: KETOROLAC TROMETHAMINE 60 MG/2 ML SDV IM ONE (04:59)
[2019-05-07 05:20] LABS: A TYPE INFLUENZA AG NEGATIVE (NEGATIVE); B INFLUENZA AG NEGATIVE (NEGATIVE)
[2019-05-07 05:57] VITALS: BP 138/89
== END 2019-05-07 05:57 | disposition home or self-care (01) ==
LOC: ER 00:09
DX: M54.5 Low back pain (principal); R10.9 Unspecified abdominal pain; R06.02 Shortness of breath; R11.2 Nausea with vomiting, unspecified; R20.0 Anesthesia of skin; R61 Generalized hyperhidrosis; R63.5 Abnormal weight gain; M54.9 Dorsalgia, unspecified; V87.7XXA Person injured in collision between other specified motor vehicles (traffic), initial encounter; Z88.9 Allergy status to unspecified drugs, medicaments and biological substances; I10 Essential (primary) hypertension; J45.909 Unspecified asthma, uncomplicated
CPT/HCPCS: 99284; 96372; 36415; 83690; 85025; 80053; 81001; 87804; 71045; J1885; S0119

== ENCOUNTER 2019-05-22 18:46 | Emergency (ER) | payer SELFPAY ==
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
[2019-05-22] MEDS ORDERED: ACETAMINOPHEN 325 MG TABLET PO ONE (19:29)
[2019-05-22 19:59] LABS: ABSOLUTE EOSINOPHILS # (AUTO) 0.2 10^3/uL (0.0-0.6); ABSOLUTE LYMPHOCYTES (AUTO) 2.8 10^3/uL (0.5-4.7); ABSOLUTE MONOCYTES (AUTO) 0.7 10^3/uL (0.1-1.4); ABSOLUTE NEUT (AUTO) 6.8 10^3/uL (1.7-8.2); BASOPHILS % (AUTO) 0.5 % (0-2); EOSINOPHILS % (AUTO) 1.9 % (0-6); HEMATOCRIT 37.8 % (37.9-51.0); HEMOGLOBIN 13.6 g/dL (13.5-17.0); LYMPHOCYTES % (AUTO) 26.8 % (13-45); MEAN CORPUSCULAR HEMOGLOBIN 34.6 pg (27.0-33.4); MEAN CORPUSCULAR HGB CONC 36.1 g/dL (32.0-36.0); MEAN CORPUSCULAR VOLUME 96 fl (80-97); MONOCYTES % (AUTO) 6.6 % (3-13); PLATELET COUNT 304 10^3/uL (150-450); RED BLOOD COUNT 3.94 10^6/uL (4.35-5.55); RED CELL DISTRIBUTION WIDTH 12.5 % (11.5-14.0); SEGMENTED NEUTROPHILS % (AUTO) 64.2 % (42-78); TOTAL CELLS COUNTED % (AUTO) 100 %; WHITE BLOOD COUNT 10.5 10^3/uL (4.0-10.5)
[2019-05-22 20:02] LABS: APPEARANCE,URINE CLEAR; BILIRUBIN,URINE NEGATIVE (NEGATIVE); COLOR,URINE YELLOW; GLUCOSE, URINE NEGATIVE (NEGATIVE); KETONES,URINE NEGATIVE (NEGATIVE); LEUKOCYTE ESTERASE,URINE NEGATIVE (NEGATIVE); NITRITE,URINE NEGATIVE (NEGATIVE); PROTEIN,URINE NEGATIVE (NEGATIVE); URINE SPECIFIC GRAVITY 1.021; UROBILINOGEN,URINE NEGATIVE mg/dL (<2.0)
--- NOTE | 2019-05-22 20:09 | EKG REPORT ---
SEVERITY:- BORDERLINE ECG - SINUS RHYTHM CONSIDER [facility] OR POSTERIOR INFARCT ST ELEV, PROBABLE NORMAL EARLY REPOL PATTERN : Confirmed by: Leo Contreras MD 22-May-2019 20:09:09
[2019-05-22 20:17] LABS: ALBUMIN 4.5 g/dL (3.5-5.0); ALKALINE PHOSPHATASE 44 U/L (38-126); ANION GAP 9 (5-19); ASPARTATE AMINO TRANSFERASE 55 U/L (17-59); BILIRUBIN,DIRECT 0.3 mg/dL (0.0-0.4); BILIRUBIN,TOTAL 0.6 mg/dL (0.2-1.3); BLOOD UREA NITROGEN 17 mg/dL (7-20); CALCIUM 9.6 mg/dL (8.4-10.2); CARBON DIOXIDE 31 mmol/L (22-30); CHLORIDE 100 mmol/L (98-107); GLUCOSE 100 mg/dL (75-110); TOTAL PROTEIN 8.3 g/dL (6.3-8.2)
[2019-05-22] MEDS ORDERED: DIPHENHYDRAMINE HCL 50 MG/ML VIAL IV ONE (20:44)
[2019-05-22] MEDS ORDERED: METOCLOPRAMIDE HCL INJ/PF 10 MG/2 ML SDV IV ONE (20:44)
[2019-05-22] MEDS ORDERED: KETOROLAC TROMETHAMINE INJ/PF 30 MG/1 ML SDV IV ONE (20:44)
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
[2019-05-22] MEDS ORDERED: HYDROCHLOROTHIAZIDE 25 MG TABLET PO ONE (20:56)
[2019-05-22 21:43] VITALS: BP 130/93
== END 2019-05-22 22:26 | disposition home or self-care (01) ==
LOC: ER 18:46
DX: G43.901 Migraine, unspecified, not intractable, with status migrainosus (principal); M54.41 Lumbago with sciatica, right side; R11.0 Nausea; F17.200 Nicotine dependence, unspecified, uncomplicated; I10 Essential (primary) hypertension
CPT/HCPCS: 93005; 99283; 96374; 96375; 36415; 85025; 80053; 81001; 93010; J1200; J1885; J2765

== ENCOUNTER 2019-05-26 17:06 | Emergency (ER) | payer SELFPAY ==
--- NOTE | 2019-05-26 17:55 | ER Document Report ---
ED Medical Screen (RME) - General Chief Complaint: Vomiting Stated Complaint: VOMITING,DIZZY,HEADACHE Time Seen by Provider: 05/26/19 17:52 Mode of Arrival: Ambulatory Information source: Patient Notes: 38-year-old male presented to ED for complaint of nausea vomiting and diarrhea since he was seen in the emergency room on 21 May. He states on 21 May he came in for headache back pain and high blood pressure since then he has had abdominal pain bloating nausea vomiting and diarrhea. He states he was having 2-3 mushy stools a day and his family brought him a drink to help him because sabrina hook thought he was backed up and since then he has had watery stools. Patient's grandmother states that he has been sleeping most of the day for the last 4 days has not felt good has had a headache nausea vomiting and the diarrhea. He states he just does not feel good he needs to know what is going on with him. He is also requesting a headache cocktail. He states last time he was here he got Compazine Toradol and Benadryl and he felt so much better afterwards. I have greeted and performed a rapid initial assessment of this patient. A comprehensive ED assessment and evaluation of the patient, analysis of test results and completion of medical decision making process will be conducted by an additional ED providers. TRAVEL OUTSIDE OF THE [place] IN LAST 30 DAYS: No - Related Data Allergies/Adverse Reactions: lactose [Lactose] Adverse Reaction (Mild, Verified 05/22/19 19:06) Nausea Past Medical History - Past Medical History Cardiac Medical History: Reports: Hx Hypertension Pulmonary Medical History: Reports: Hx Asthma Neurological Medical History: Reports: Hx Migraine Renal/ Medical History: Denies: Hx Peritoneal Dialysis GI Medical History: Reports: Hx Gastritis, Hx Gastroesophageal Reflux Disease, Hx Ulcer, Hx Endoscopy Musculoskeltal Medical History: Reports Hx Musculoskeletal Trauma Psychiatric Medical History: Reports: Hx Anxiety Traumatic Medical History: Reports: Hx Fractures - Fingers and nose Past Surgical History: Reports: Hx Abdominal Surgery - HERNIA, Hx Inguinal Hernia - Immunizations Immunizations up to date: Yes Hx Diphtheria, Pertussis, Tetanus Vaccination: Yes - 2016 Physical Exam - Vital signs Vitals: Temp Pulse Resp BP Pulse Ox 98.1 F 72 20 144/89 H 97 05/26/19 17:28 05/26/19 17:28 05/26/19 17:28 05/26/19 17:28 05/26/19 17:28 Course - Vital Signs Vital signs: Temp Pulse Resp BP Pulse Ox 98.1 F 72 20 144/89 H 97 05/26/19 17:28 05/26/19 17:28 05/26/19 17:28 05/26/19 17:28 05/26/19 17:28
[2019-05-26] MEDS ORDERED: ACETAMINOPHEN 325 MG TABLET PO ONE (18:00)
[2019-05-26] MEDS ORDERED: ONDANSETRON 4 MG TAB.RAPDIS PO ONE (18:00)
--- NOTE | 2019-05-26 18:55 | RADIOLOGY REPORT (SQ) ---
EXAM DESCRIPTION: ACUTE ABDOMEN SERIES COMPLETED DATE/TIME: 05/26/2019 6:23 pm REASON FOR STUDY: Abdominal pain nausea vomiting diarrhea COMPARISON: None. NUMBER OF VIEWS: Three views. TECHNIQUE: Frontal chest, supine abdomen and upright/decubitus abdomen radiographic images acquired. LIMITATIONS: None. FINDINGS: CHEST: Lungs clear of infiltrates. FREE AIR: None. No abnormal gas collections. BOWEL GAS PATTERN: Nonobstructive pattern. No dilated loops or air fluid levels. CALCIFICATIONS: No suspicious calcifications. HARDWARE: None in the abdomen. SOFT TISSUES: No gross mass or suggestion of organomegaly. BONES: No acute fracture. No worrisome bone lesions. OTHER: No other significant finding. IMPRESSION: NO RADIOGRAPHIC EVIDENCE FOR ACUTE ABDOMINAL DISEASE. TECHNICAL DOCUMENTATION: JOB ID: [id number] 2010 [employer]- All Rights Reserved Reading location - IP/workstation name: [email or web address]
[2019-05-26 19:11] LABS: ABSOLUTE EOSINOPHILS # (AUTO) 0.2 10^3/uL (0.0-0.6); ABSOLUTE MONOCYTES (AUTO) 0.6 10^3/uL (0.1-1.4); BASOPHILS % (AUTO) 0.4 % (0-2); EOSINOPHILS % (AUTO) 3.2 % (0-6); HEMATOCRIT 38.3 % (37.9-51.0); HEMOGLOBIN 13.5 g/dL (13.5-17.0); LYMPHOCYTES % (AUTO) 28.9 % (13-45); MEAN CORPUSCULAR HEMOGLOBIN 34.5 pg (27.0-33.4); MEAN CORPUSCULAR HGB CONC 35.3 g/dL (32.0-36.0); MEAN CORPUSCULAR VOLUME 98 fl (80-97); MONOCYTES % (AUTO) 8.9 % (3-13); PLATELET COUNT 283 10^3/uL (150-450); RED BLOOD COUNT 3.92 10^6/uL (4.35-5.55); RED CELL DISTRIBUTION WIDTH 12.5 % (11.5-14.0); SEGMENTED NEUTROPHILS % (AUTO) 58.6 % (42-78); TOTAL CELLS COUNTED % (AUTO) 100 %; WHITE BLOOD COUNT 6.8 10^3/uL (4.0-10.5)
[2019-05-26 19:20] LABS: APPEARANCE,URINE CLEAR; BILIRUBIN,URINE NEGATIVE (NEGATIVE); COLOR,URINE YELLOW; GLUCOSE, URINE NEGATIVE (NEGATIVE); KETONES,URINE NEGATIVE (NEGATIVE); PROTEIN,URINE NEGATIVE (NEGATIVE); URINE SPECIFIC GRAVITY 1.028; UROBILINOGEN,URINE NEGATIVE mg/dL (<2.0)
[2019-05-26 19:34] LABS: ALBUMIN 4.7 g/dL (3.5-5.0); ALKALINE PHOSPHATASE 44 U/L (38-126); ANION GAP 6 (5-19); ASPARTATE AMINO TRANSFERASE 54 U/L (17-59); BILIRUBIN,TOTAL 0.6 mg/dL (0.2-1.3); BLOOD UREA NITROGEN 16 mg/dL (7-20); CALCIUM 9.6 mg/dL (8.4-10.2); CARBON DIOXIDE 35 mmol/L (22-30); CHLORIDE 98 mmol/L (98-107); GLUCOSE 116 mg/dL (75-110); POTASSIUM 4.2 mmol/L (3.6-5.0); TOTAL PROTEIN 8.2 g/dL (6.3-8.2)
[2019-05-26] MEDS ORDERED: NORMAL SALINE 1000 ML 1,000 ML IV ONE (21:55)
[2019-05-26] MEDS ORDERED: METOCLOPRAMIDE HCL INJ/PF 10 MG/2 ML SDV IV ONE (21:55)
[2019-05-26] MEDS ORDERED: DIPHENHYDRAMINE HCL 50 MG/ML VIAL IV ONE (21:55)
--- NOTE | 2019-05-26 21:57 | ER Document Report ---
ED General - General Chief Complaint: Nausea/Vomiting/Diarrhea Stated Complaint: VOMITING,DIZZY,HEADACHE Time Seen by Provider: 05/26/19 17:52 Mode of Arrival: Ambulatory Notes: Patient is a 38-year-old male that comes emergency department for chief complaint of nausea, vomiting, abdominal pain since yesterday with chills and sweats, he states he also was very bloated in his abdomen, he took a laxative earlier today, he has had several large loose bowel movement since that time. He denies hematochezia, hematemesis, current abdominal pain. He states he also was just here several days ago, treated for migraine, however after the vomiting and sick symptoms over the past couple of days his migraine has been coming back intermittently. He states it is behind the right eye, he gets light sensitive and nauseated. He has a history of hypertension, asthma, migraines, remote history of inguinal hernia repair. He is on HCTZ for blood pressure, prescribed several days ago. TRAVEL OUTSIDE OF THE [place] IN LAST 30 DAYS: No - Related Data Allergies/Adverse Reactions: lactose [Lactose] Adverse Reaction (Mild, Verified 05/22/19 19:06) Nausea Past Medical History - General Information source: Patient - Social History Smoking Status: Current Every Day Smoker Drug Abuse: None Lives with: Family Family History: Reviewed & Not Pertinent, CAD, Other - CHF Patient has suicidal ideation: No Patient has homicidal ideation: No - Past Medical History Cardiac Medical History: Reports: Hx Hypertension Pulmonary Medical History: Reports: Hx Asthma Neurological Medical History: Reports: Hx Migraine Renal/ Medical History: Denies: Hx Peritoneal Dialysis GI Medical History: Reports: Hx Gastritis, Hx Gastroesophageal Reflux Disease, Hx Ulcer, Hx Endoscopy Musculoskeletal Medical History: Reports Hx Musculoskeletal Trauma Psychiatric Medical History: Reports: Hx Anxiety Traumatic Medical History: Reports: Hx Fractures - Fingers and nose Past Surgical History: Reports: Hx Abdominal Surgery - HERNIA, Hx Inguinal Hernia - Immunizations Immunizations up to date: Yes Hx Diphtheria, Pertussis, Tetanus Vaccination: Yes - 2017 Review of Systems - Review of Systems Constitutional: No symptoms reported EENT: No symptoms reported Cardiovascular: No symptoms reported Respiratory: No symptoms reported Gastrointestinal: See HPI Genitourinary: No symptoms reported Male Genitourinary: No symptoms reported Musculoskeletal: No symptoms reported Skin: No symptoms reported Hematologic/Lymphatic: No symptoms reported Neurological/Psychological: See HPI Physical Exam - Vital signs Vitals: Temp Pulse Resp BP Pulse Ox 98.1 F 72 20 144/89 H 97 05/26/19 17:28 05/26/19 17:28 05/26/19 17:28 05/26/19 17:28 05/26/19 17:28 - Notes Notes: GENERAL: Sleeping and easily aroused, no signs of distress HEAD: Normocephalic, atraumatic. EYES: Pupils equal, round, and reactive to light. Extraocular movements intact. ENT: Oral mucosa dry, tongue midline. Oropharynx unremarkable. Airway patent. LUNGS: Clear to auscultation bilaterally, no wheezes, rales, or rhonchi. No respiratory distress. HEART: Regular rate and rhythm. No murmur ABDOMEN: Soft, non-tender. Non-distended. Bowel sounds present in all 4 quadrants. GENITOURINARY: Deferred EXTREMITIES: Moves all 4 extremities spontaneously. No edema, normal radial and dorsalis pedis pulses bilaterally. No cyanosis. BACK: no cervical, thoracic, lumbar midline tenderness. No saddle anesthesia, normal distal neurovascular exam. Moves all extremities in full range of motion. NEUROLOGICAL: Alert and oriented x3. Normal speech. Cranial nerves II through XII grossly intact. PSYCH: Normal affect, normal mood. SKIN: Warm, dry, normal turgor. No rashes or lesions noted. Course - Re-evaluation Re-evalutation: Patient tells me he has a migraine but I woke him when I entered the room. He does not appear to be in distress, has no neurological deficits. Symptoms are very migraine-like with nausea, photophobia, and symptoms behind the right eye. Patient has a history of the same and states this feels like previous migraines. He was treated with IV fluids, Reglan, Benadryl. Afterwards headache completely resolved. His abdomen is soft and benign. CBC unremarkable, chemistry nonspecific, urinalysis shows dehydration. Patient was given IV fluids. Patient tolerating p.o. without any difficulty. Patient was able to provide a stool sample and he requested this be tested for infection including C. difficile. This was performed. Initial stool negative for white blood cells, I have a suspicion of viral illness and I have a low suspicion of severe infection or acute abdomen. On evaluation patient is asymptomatic and ready to leave, discussed details, expectations, follow-up, and return precautions. Patient and significant other state appreciation and agreement. Stable and well-appearing at time of discharge. - Vital Signs Vital signs: Temp Pulse Resp BP Pulse Ox 98.6 F 98 16 150/83 H 97 05/27/19 00:49 05/27/19 00:49 05/27/19 00:49 05/27/19 00:49 05/27/19 00:49 - Laboratory Result Diagrams: 05/26/19 18:10 05/26/19 18:10 Laboratory results interpreted by me: 05/26/19 05/26/19 18:10 18:10 RBC 3.92 L MCV 98 H MCH 34.5 H Carbon Dioxide 35 H Glucose 116 H ALT 77 H Discharge - Discharge Clinical Impression: Nausea vomiting and diarrhea, Dehydration Abdominal pain Qualifiers: Abdominal location: generalized Qualified Code(s): R10.84 - Generalized abdominal pain Headache Qualifiers: Headache type: unspecified Headache chronicity pattern: acute headache Intractability: not intractable Qualified Code(s): R51 - Headache Condition: Stable Disposition: HOME, SELF-CARE Additional Instructions: Your work-up indicates dehydration, continue rehydration at home. Take nausea medication as prescribed. Based on your testing so far this appears to be viral and should simply resolve. You will be contacted for any concerning findings on your additional testing of your stool. Return if you worsen including severe worsening pain, uncontrolled vomiting, spiking fevers, or any other concerning symptoms. Prescriptions: Promethazine HCl [Phenergan 25 mg Tablet] 25 mg PO Q6H PRN #15 tablet PRN Reason:
[2019-05-27] MEDS ORDERED: ONDANSETRON ODT 4 MG TAB (6 TAB/ER DISP) PO PRN (00:38)
[2019-05-27 00:50] VITALS: BP 150/83
[2019-05-27 01:08] LABS: C DIFFICILE GDH NEGATIVE (NEGATIVE)
== END 2019-05-27 00:49 | disposition home or self-care (01) ==
LOC: ER 17:06
DX: E86.0 Dehydration (principal); R10.84 Generalized abdominal pain; R11.2 Nausea with vomiting, unspecified; R19.7 Diarrhea, unspecified; R51 Headache; R42 Dizziness and giddiness; R10.9 Unspecified abdominal pain; R14.0 Abdominal distension (gaseous); I10 Essential (primary) hypertension; J45.909 Unspecified asthma, uncomplicated; F17.200 Nicotine dependence, unspecified, uncomplicated
CPT/HCPCS: 99284; 96361; 96374; 96375; 36415; 87045; 89055; 87205; 83690; 85025; 80053; 81001; 87324; 87449; 74022; J1200; S0119; J2765; J7030

== ENCOUNTER 2019-08-21 14:45 | Emergency (ER) | payer SELFPAY ==
[2019-08-21] MEDS ORDERED: ONDANSETRON HCL INJ/PF 4 MG/2 ML SDV IV ONE (15:40)
[2019-08-21] MEDS ORDERED: NORMAL SALINE 1000 ML 1,000 ML IV ONE (15:40)
[2019-08-21 16:19] LABS: ABSOLUTE EOSINOPHILS # (AUTO) 0.2 10^3/uL (0.0-0.6); ABSOLUTE LYMPHOCYTES (AUTO) 1.8 10^3/uL (0.5-4.7); ABSOLUTE MONOCYTES (AUTO) 0.4 10^3/uL (0.1-1.4); ABSOLUTE NEUT (AUTO) 3.9 10^3/uL (1.7-8.2); BASOPHILS % (AUTO) 0.5 % (0-2); EOSINOPHILS % (AUTO) 3.6 % (0-6); HEMATOCRIT 36.8 % (37.9-51.0); HEMOGLOBIN 12.7 g/dL (13.5-17.0); LYMPHOCYTES % (AUTO) 28.8 % (13-45); MEAN CORPUSCULAR HEMOGLOBIN 33.3 pg (27.0-33.4); MEAN CORPUSCULAR HGB CONC 34.6 g/dL (32.0-36.0); MEAN CORPUSCULAR VOLUME 96 fl (80-97); MONOCYTES % (AUTO) 6.2 % (3-13); PLATELET COUNT 277 10^3/uL (150-450); RED BLOOD COUNT 3.83 10^6/uL (4.35-5.55); SEGMENTED NEUTROPHILS % (AUTO) 60.9 % (42-78); TOTAL CELLS COUNTED % (AUTO) 100 %; WHITE BLOOD COUNT 6.4 10^3/uL (4.0-10.5)
[2019-08-21 16:26] LABS: APPEARANCE,URINE CLEAR; BILIRUBIN,URINE NEGATIVE (NEGATIVE); COLOR,URINE YELLOW; GLUCOSE, URINE NEGATIVE (NEGATIVE); KETONES,URINE NEGATIVE (NEGATIVE); PROTEIN,URINE NEGATIVE (NEGATIVE); URINE SPECIFIC GRAVITY 1.025; UROBILINOGEN,URINE NEGATIVE mg/dL (<2.0)
--- NOTE | 2019-08-21 16:29 | RADIOLOGY REPORT (SQ) ---
EXAM DESCRIPTION: CHEST SINGLE VIEW IMAGES COMPLETED DATE/TIME: 08/21/2019 4:20 pm REASON FOR STUDY: malaise COMPARISON: AP view of the chest from 05/07/2019. EXAM PARAMETERS: NUMBER OF VIEWS: One view. TECHNIQUE: An AP view of the chest was obtained. RADIATION DOSE: NA LIMITATIONS: None. FINDINGS: LUNGS AND PLEURA: No consolidation, pleural effusion or pneumothorax. MEDIASTINUM AND HILAR STRUCTURES: No mediastinal or hilar contour abnormality. HEART AND VASCULAR STRUCTURES: The cardiac silhouette and pulmonary vasculature are within normal pereira its. BONES: No acute findings. HARDWARE: None in the chest. OTHER: No other finding. IMPRESSION: No acute cardiopulmonary process. TECHNICAL DOCUMENTATION: JOB ID: [id number] 2010 [employer]- All Rights Reserved Reading location - IP/workstation name: [email or web address]
[2019-08-21 16:35] LABS: ALBUMIN 4.4 g/dL (3.5-5.0); ALKALINE PHOSPHATASE 40 U/L (38-126); ANION GAP 8 (5-19); ASPARTATE AMINO TRANSFERASE 62 U/L (17-59); BILIRUBIN,TOTAL 0.5 mg/dL (0.2-1.3); BLOOD UREA NITROGEN 18 mg/dL (7-20); CALCIUM 9.6 mg/dL (8.4-10.2); CARBON DIOXIDE 27 mmol/L (22-30); CHLORIDE 100 mmol/L (98-107); GLUCOSE 127 mg/dL (75-110); POTASSIUM 4.1 mmol/L (3.6-5.0); TOTAL PROTEIN 7.7 g/dL (6.3-8.2)
[2019-08-21 16:38] LABS: URINE AMPHETAMINES SCREEN NEGATIVE; URINE BARBITURATES SCREEN NEGATIVE; URINE BENZODIAZEPINES SCREEN NEGATIVE; URINE COCAINE SCREEN NEGATIVE; URINE MARIJUANA (THC) SCREEN NEGATIVE; URINE METHADONE SCREEN NEGATIVE; URINE PHENCYCLIDINE SCREEN NEGATIVE
--- NOTE | 2019-08-21 17:08 | ER Document Report ---
ED GI/ - General Chief Complaint: Nausea/Vomiting Stated Complaint: VOMITING Time Seen by Provider: 08/21/19 15:17 Primary Care Provider: YAN [facility] [Provider Group] - Follow up as needed [facility] [Provider Group] - Follow up as needed Notes: Patient is a 38-year-old male who presents to the emergency department with a chief complaint of nausea and vomiting. Patient states that he has had on and off vomiting for the past 3 weeks. Patient states that he does have a history of GERD, but is not taking any medications. He also has complaints of possible STD exposure. Patient reports urinary retention. He also states that he has some sinus pressure. States that he has had a sinus pressure for the past week. TRAVEL OUTSIDE OF THE [place] IN LAST 30 DAYS: No - Related Data Allergies/Adverse Reactions: lactose [Lactose] Adverse Reaction (Mild, Verified 05/22/19 19:06) Nausea Past Medical History - Social History Smoking Status: Current Every Day Smoker Frequency of alcohol use: None Drug Abuse: None Family History: Reviewed & Not Pertinent, CAD, Other - CHF Patient has homicidal ideation: No - Past Medical History Cardiac Medical History: Reports: Hx Hypertension Pulmonary Medical History: Reports: Hx Asthma Neurological Medical History: Reports: Hx Migraine Renal/ Medical History: Denies: Hx Peritoneal Dialysis GI Medical History: Reports: Hx Gastritis, Hx Gastroesophageal Reflux Disease, Hx Ulcer, Hx Endoscopy Musculoskeletal Medical History: Reports Hx Musculoskeletal Trauma Psychiatric Medical History: Reports: Hx Anxiety Traumatic Medical History: Reports: Hx Fractures - Fingers and nose Past Surgical History: Reports: Hx Abdominal Surgery - HERNIA, Hx Inguinal Hernia - Immunizations Immunizations up to date: Yes Hx Diphtheria, Pertussis, Tetanus Vaccination: Yes - 2016 Review of Systems - Review of Systems Notes: REVIEW OF SYSTEMS: CONSTITUTIONAL : See HPI. Denies recent unintentional weight loss. EENT: See HPI. CARDIOVASCULAR: Denies chest pain. RESPIRATORY: Denies shortness of breath, cough, congestion, difficulty breathing, or wheezing. GASTROINTESTINAL: See HPI. GENITOURINARY: Denies difficulty urinating, burning, blood in urine, urgency or frequency. MUSCULOSKELETAL: Denies neck and back pain. Denies joint pain or swelling. SKIN: Denies rash, itchiness, or lesions HEMATOLOGIC : Denies easy bruising or bleeding. LYMPHATIC: Denies swollen, painful, enlarged glands. NEUROLOGICAL: Denies no numbness or tingling denies weakness. Denies headache. Denies altered mental status. Denies alteration in speech. PSYCHIATRIC: Denies stress, anxiety, alteration in sleep patterns, or depression. All other systems reviewed and negative. Physical Exam - Vital signs Vitals: Temp Pulse Resp BP Pulse Ox 98.2 F 76 16 142/99 H 97 08/21/19 15:06 08/21/19 15:06 08/21/19 15:06 08/21/19 15:06 08/21/19 15:06 - Notes Notes: PHYSICAL EXAMINATION: GENERAL: Appears well, healthy, well-nourished, no acute distress. HEAD: Normocephalic, atraumatic. EYES: PERRL, conjunctiva normal, all extraocular movements intact, sclera nonicteric ENT: Dry mucous membranes. NECK: Supple, no noticeable swelling, redness, rash. Normal range of motion. LUNGS: Equal breath sounds bilaterally and clear to auscultation. No wheezes rales or rhonchi. CARDIOVASCULAR: S1-S2, regular rate, regular rhythm. Radial pulses 2+, normal. ABDOMEN: Normoactive bowel sounds. Soft, nontender, no guarding, no rebound tenderness, and no masses palpated. EXTREMITIES: Normal strength and range of motion, no pitting or edema. No cyanosis. NEUROLOGICAL: Moves all extremities upon command. Strength 5/5 in all extremities. PSYCH: Normal mood, normal affect. SKIN: Warm, dry. No rash, lesions, ulcerations noted. Normal skin turgor. Course - Re-evaluation Re-evalutation: 08/21/19 17:04 Chest x-ray is normal. No pneumonia noted. Hematology does not show a leukocytosis. He is mildly anemic with a hemoglobin of 12.7 hematocrit of 36.8. Chemistries are unremarkable. LFTs are mildly elevated, but no guarding noted on abdominal exam. Lipase is normal. I reevaluated patient and he states his nausea is better. Patient's blood pressure is 142/99. Have a low suspicion for any intracranial bleed, or any life-threatening etiology at this time. At this time, I do not put the patient on blood pressure medication. Patient will be t reated for gonorrhea. If his chlamydia is positive, microbiology nurse will give him a call and order him azithromycin. He received Rocephin for prophylactic treatment of gonorrhea. Patient kept repeatedly falling asleep on me during my assessment, and therefore I ordered a urine drug screen and it was positive for opiates. Patient states that he took a Percocet from a friend. I educated him on not taking other peoples medications. Patient does have tenderness upon palpation to his maxillary sinuses. We will start him on Augmentin. Follow-up precautions were given. Verbal discharge instructions were given to the patient. They verbalized understanding. They are stable for discharge. - Vital Signs Vital signs: Temp Pulse Resp BP Pulse Ox 98.9 F 71 16 149/103 H 99 08/21/19 17:44 08/21/19 17:44 08/21/19 15:06 08/21/19 17:44 08/21/19 17:44 - Laboratory Result Diagrams: 08/21/19 16:00 08/21/19 16:00 Laboratory results interpreted by me: 08/21/19 08/21/19 08/21/19 15:29 16:00 16:00 RBC 3.83 L Hgb 12.7 L Hct 36.8 L Sodium 135.0 L Glucose 127 H AST 62 H ALT 69 H Urine Ascorbic Acid 20 H Discharge - Discharge Clinical Impression: Nausea and vomiting Qualifiers: Vomiting type: unspecified Vomiting Intractability: unspecified Qualified Code(s): R11.2 - Nausea with vomiting, unspecified GERD (gastroesophageal reflux disease) Qualifiers: Esophagitis presence: without esophagitis Qualified Code(s): K21.9 - Gastro- esophageal reflux disease without esophagitis Headache Qualifiers: Headache type: unspecified Headache chronicity pattern: unspecified pattern Intractability: not intractable Qualified Code(s): R51 - Headache Sinusitis Qualifiers: Sinusitis location: maxillary Chronicity: acute Recurrence: non-recurrent Quali fied Code(s): J01.00 - Acute maxillary sinusitis, unspecified Condition: Stable Disposition: HOME, SELF-CARE Instructions: Intravenous (IV) Fluids ([facility]), Vomiting ([facility]) Additional Instructions: Your seen today in the emergency department for nausea and vomiting. Your labs are normal. You received IV fluids and Zofran to help with your symptoms. You were also treated for gonorrhea here in the emergency department. If your gonorrhea and chlamydia come back positive, please inform anybody that you have had sex with and tell them the need to get tested and treated. Make sure you wear a condom anytime you have sex. Your blood pressure was normal today. Follow-up with 1 of the clinics below to see if you need blood pressure medication. You are also being treated for a sinus infection. Take all your antibiotics as prescribed. Prescriptions: Amoxicillin/Potassium Clav [Augmentin 875-125 Tablet] 1 tab PO BID #20 tab Famotidine [Pepcid 20 mg Tablet] 20 mg PO BID #60 tablet Ondansetron [Zofran Odt 4 mg Tablet] 1 - 2 tab PO Q4H PRN #30 tab.rapdis PRN Reason: For Nausea/Vomiting Referrals: [facility] [Provider Group] - Follow up as needed [facility] [Provider Group] - Follow up as needed
[2019-08-21] MEDS ORDERED: CEFTRIAXONE INJ 250 MG VIAL IM ONE (17:09)
[2019-08-21] MEDS ORDERED: LIDOCAINE 1% INJ-PF (10 MG/ML) 30 ML SDV INJ ONE (17:09)
[2019-08-21 17:50] VITALS: BP 149/103
[2019-08-21 17:50] LABS: CHLAM PCR NOT DETECTED (NOT DETECT)
== END 2019-08-21 17:50 | disposition home or self-care (01) ==
LOC: ER 14:45
DX: J01.00 Acute maxillary sinusitis, unspecified (principal); K21.9 Gastro-esophageal reflux disease without esophagitis; R11.2 Nausea with vomiting, unspecified; R51 Headache; F17.200 Nicotine dependence, unspecified, uncomplicated; I10 Essential (primary) hypertension
CPT/HCPCS: 99284; 96372; 96361; 96374; 36415; 83690; 85025; 80053; 81001; 80307; 87491; 87591; 71045; J3490; J2405; J7030; J0696

== ENCOUNTER 2019-09-04 21:03 | Emergency (ER) | payer SELFPAY ==
[2019-09-04] MEDS ORDERED: ACETAMINOPHEN 325 MG TABLET PO ONE (21:30)
--- NOTE | 2019-09-04 21:30 | ER Document Report ---
ED Medical Screen (RME) - General Mode of Arrival: Ambulatory Information source: Patient TRAVEL OUTSIDE OF THE [place] IN LAST 30 DAYS: No - General Chief Complaint: Penile Pain Stated Complaint: POSSIBLE MRSA Time Seen by Provider: 09/04/19 21:20 Notes: 38-year-old male presented to ED for complaint of very painful sores on his penis. He states they look just like the sores are on his abdomen. He has some scars on his abdomen's but no abscesses. He states that he was seen recently and she treated him for a cold and sinus congestion but he told her that he had sores on his abdomen that looked just like they do now. He states they did not get any better. He does have multiple scars from old sores on his abdomen. I do not see any active abscesses at this time. He states he has a history of high blood pressure needs to be on medicine but then he went to alf and they took him off the medicine and he does not have a primary care doctor now so he does not follow-up and does not get any medicine. He states he smokes 5 cigarettes a day does not drink or use any illicit drugs. He states he needs something to get rid of the sores to his penis that look like MRSA and he needs some blood pressure medicine. I have greeted and performed a rapid initial assessment of this patient. A comprehensive ED assessment and evaluation of the patient, analysis of test results and completion of medical decision making process will be conducted by an additional ED providers. (MARISOL GASPAR) - Related Data Allergies/Adverse Reactions: lactose [Lactose] Adverse Reaction (Mild, Verified 05/22/19 19:06) Nausea Past Medical History - Past Medical History Cardiac Medical History: Reports: Hx Hypertension Pulmonary Medical History: Reports: Hx Asthma Neurological Medical History: Reports: Hx Migraine Renal/ Medical History: Denies: Hx Peritoneal Dialysis GI Medical History: Reports: Hx Gastritis, Hx Gastroesophageal Reflux Disease, Hx Ulcer, Hx Endoscopy Musculoskeltal Medical History: Reports Hx Musculoskeletal Trauma Psychiatric Medical History: Reports: Hx Anxiety Traumatic Medical History: Reports: Hx Fractures - Fingers and nose Past Surgical History: Reports: Hx Abdominal Surgery - HERNIA, Hx Inguinal Hernia - Immunizations Immunizations up to date: Yes Hx Diphtheria, Pertussis, Tetanus Vaccination: Yes - 2016 Physical Exam - Vital signs Vitals: Temp Pulse Resp BP Pulse Ox 99.0 F 97 18 182/94 H 97 09/04/19 21:14 09/04/19 21:14 09/04/19 21:14 09/04/19 21:14 09/04/19 21:14 Course - Vital Signs Vital signs: Temp Pulse Resp BP Pulse Ox 99.0 F 97 18 182/94 H 97 09/04/19 21:17 09/04/19 21:14 09/04/19 21:14 09/04/19 21:14 09/04/19 21:14
--- NOTE | 2019-09-04 23:12 | ER Document Report ---
ED General - General Chief Complaint: Penile Pain Stated Complaint: POSSIBLE MRSA Time Seen by Provider: 09/04/19 21:20 Mode of Arrival: Ambulatory Notes: triage notes 09/04/19 21:19 - ED Nursing Note by THOMAS CHAMPAGNE [facility] Num: [id number] : 1980 Patient Age: 38 Pt presents to ED for penile pain. The pain started around 1800 today. The pt reports 3 bumps that are painful. The pt reports similar bumps on his abdomen that resolved 3 weeks ago. No problems with urination. The pt was seen in the ED for his symptoms. The pt is aox4. Resps even and unlabored. Howard notes 38-year-old male presented to ED for complaint of very painful sores on his penis. He states they look just like the sores are on his abdomen. He has some scars on his abdomen's but no abscesses. He states that he was seen recently and she treated him for a cold and sinus congestion but he told her that he had sores on his abdomen that looked just like they do now. He states they did not get any better. He does have multiple scars from old sores on his abdomen. I do not see any active abscesses at this time. He states he has a history of high blood pressure needs to be on medicine but then he went to correction and they took him off the medicine and he does not have a primary care doctor now so he does not follow-up and does not get any medicine. He states he smokes 5 cigarettes a day does not drink or use any illicit drugs. He states he needs something to get rid of the sores to his penis that look like MRSA and he needs some blood pressure medicine. My notes 38-year-old black male arrives with 1 week history of 2 lesions to his periumbilical area which appear to be ulcerating folliculitis and also a lesion to his right pointer finger knuckle and also to the right side of his lateral penis. 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 He reports his pain is 8 out of 10. He reports he was placed on some sinus medicine a week ago but still has some sinus congestion. He believes he has MRSA and a wound culture of his draining r lat penile vesicles lesions ..was taken while in triage. Patient arrives with low-grade fever as well as hypertension. Patient denies any coronavirus sick exposure but we will test him tonight. TRAVEL OUTSIDE OF THE [place] IN LAST 30 DAYS: No - Related Data Allergies/Adverse Reactions: lactose [Lactose] Adverse Reaction (Mild, Verified 05/22/19 19:06) Nausea Past Medical History - General Information source: Patient - Social History Smoking Status: Current Every Day Smoker Cigarette use (# per day): Yes Chew tobacco use (# tins/day): No Smoking Education Provided: Yes Frequency of alcohol use: Occasional Drug Abuse: Cocaine Lives with: Family Family History: Reviewed & Not Pertinent, CAD, Other - CHF Patient has suicidal ideation: No Patient has homicidal ideation: No - Past Medical History Cardiac Medical History: Reports: Hx Hypertension Pulmonary Medical History: Reports: Hx Asthma Neurological Medical History: Reports: Hx Migraine Renal/ Medical History: Denies: Hx Peritoneal Dialysis GI Medical History: Reports: Hx Gastritis, Hx Gastroesophageal Reflux Disease, Hx Ulcer, Hx Endoscopy Musculoskeletal Medical History: Reports Hx Musculoskeletal Trauma Psychiatric Medical History: Reports: Hx Anxiety Traumatic Medical History: Reports: Hx Fractures - Fingers and nose Past Surgical History: Reports: Hx Abdominal Surgery - HERNIA, Hx Inguinal Hernia - Immunizations Immunizations up to date: Yes Hx Diphtheria, Pertussis, Tetanus Vaccination: Yes - 2016 Review of Systems - Review of Systems Constitutional: No symptoms reported EENT: No symptoms reported Cardiovascular: No symptoms reported Respiratory: No symptoms reported Gastrointestinal: No symptoms reported Genitourinary: No symptoms reported Male Genitourinary: No symptoms reported Musculoskeletal: No symptoms reported Skin: See HPI, Lesions, Other - Lesions to the right knuckle and to the periumbilical all of which are around 1 cm and appear to be folliculitis with erosions. He also has a grouped lesions of vesicles to the right lateral penis shaft. These are draining clear liquid which appear nonpurulent but more watery in appearance. Hematologic/Lymphatic: No symptoms reported Neurological/Psychological: No symptoms reported Physical Exam - Vital signs Vitals: Temp Pulse Resp BP Pulse Ox 99.0 F 97 18 182/94 H 97 09/04/19 21:14 09/04/19 21:14 09/04/19 21:14 09/04/19 21:14 09/04/19 21:14 Interpretation: Hypertensive, Febrile - General General appearance: Alert In distress: Mild - HEENT Head: Normocephalic, Atraumatic Eyes: Normal Pupils: PERRL Pharynx: Normal Neck: Normal - Respiratory Respiratory status: No respiratory distress Chest status: Nontender Breath sounds: Normal Chest palpation: Normal - Cardiovascular Rhythm: Regular Heart sounds: Normal auscultation Murmur: No - Abdominal Inspection: Normal Distension: No distension Bowel sounds: Normal Tenderness: Nontender Organomegaly: No organomegaly - Rectal Hemorrhoids: Other - deferred - Genitourinary Tenderness: Other - Right lateral penile shaft with grouped vesicles that are draining watery discharge. Patient presented Cremasteric reflex: Normal Scrotum: Normal - Back Back: Normal - Extremities General upper extremity: Normal inspection General lower extremity: Normal inspection - Neurological Neuro grossly intact: Yes Cognition: Normal Orientation: AAOx4 [place] Coma Scale Eye Opening: Spontaneous Domitila Coma Scale Verbal: Oriented [place] Coma Scale Motor: Obeys Commands [place] Coma Scale Total: 15 Speech: Normal Motor strength normal: LUE, RUE, LLE, RLE Sensory: Normal - Psychological Associated symptoms: Normal affect - Skin Skin Temperature: Warm Course - Vital Signs Vital signs: Temp Pulse Resp BP Pulse Ox 99.0 F 97 18 149/84 H 97 09/04/19 21:17 09/04/19 21:14 09/04/19 21:14 09/04/19 23:39 09/04/19 21:14 Discharge - Discharge Clinical Impression: Lesion of penis, Folliculitis Hypertension Qualifiers: Hypertension type: unspecified Qualified Code(s): I10 - Essential (primary) hypertension Febrile Qualifiers: Fever type: unspecified Qualified Code(s): R50.9 - Fever, unspecified Condition: Good Disposition: HOME, SELF-CARE Instructions: Folliculitis ([facility]) Additional Instructions: Follow-up with personal doctor this week return to ER as needed off work as directed. Wash your wounds with Hibiclens gently daily.. You may apply the Hibiclens to the affected skin lesions and allow to remain for 10 minutes then rinse off with cool water. Do not scrub your skin lesions. You may apply [id number] bacitracin to the lesions.. No sex until all lesions are clear. Self quarantine until your coronavirus test returns .. If it remains positive you need to self quarantine for 2 weeks or more.. Prescriptions: Sulfamethoxazole/Trimethoprim [Bactrim Ds Tablet] 1 tab PO BID #20 tablet Cephalexin Monohydrate [Keflex 500 mg Capsule] 500 mg PO BID 10 Days #20 capsule Acyclovir [Zovirax 200 mg Capsule] 200 mg PO TID 7 Days #21 capsule Forms: Return to Work
[2019-09-04] MEDS ORDERED: CEFTRIAXONE INJ 1000 MG VIAL IM ONE (23:35)
[2019-09-04] MEDS ORDERED: CLONIDINE HCL 0.2 MG TABLET PO ONE (23:36)
[2019-09-04] MEDS ORDERED: HYDROCODONE/ACETAMINOPHEN 5-325 MG (6 TAB/ER DISP) PO PRN (23:36)
[2019-09-04 23:39] VITALS: BP 149/84
[2019-09-04] MEDS ORDERED: KETOROLAC TROMETHAMINE 60 MG/2 ML SDV IM ONE (23:47)
[2019-09-05] MEDS ORDERED: LIDOCAINE 1% INJ-PF (10 MG/ML) 30 ML SDV ONE (00:31)
[2019-09-05] MEDS ORDERED: HYDROCODONE/ACETAMINOPHEN 5-325 MG (6 TAB/ER DISP) PO PRN (00:37)
[2019-09-05] MEDS ORDERED: HYDROCODONE/ACETAMINOPHEN 5-325 MG (6 TAB/ER DISP) PO SCH (10:00)
== END 2019-09-05 00:58 | disposition home or self-care (01) ==
LOC: ER 21:03
DX: N48.89 Other specified disorders of penis (principal); L73.9 Follicular disorder, unspecified; I10 Essential (primary) hypertension; R50.9 Fever, unspecified; F17.210 Nicotine dependence, cigarettes, uncomplicated; J45.909 Unspecified asthma, uncomplicated
CPT/HCPCS: 99283; 96372; 36415; 87070; 87205; J1885; J3490; J0696

== ENCOUNTER 2019-09-09 18:03 | Emergency (ER) | payer SELFPAY ==
[2019-09-09] MEDS ORDERED: NORMAL SALINE 1000 ML 1,000 ML IV ONE (18:22)
--- NOTE | 2019-09-09 18:24 | ER Document Report ---
ED Medical Screen (RME) - General Chief Complaint: Nausea/Vomiting Stated Complaint: DOESNT FEEL WELL Time Seen by Provider: 09/09/19 18:13 Notes: Patient is a 38-year-old male with a history of hypertension who presents emergency department with multiple complaints. Patient reports he generally is not feeling well. Patient reports that he was seen here 5 days ago but was unable to get his prescriptions filled which was for antibiotics. Patient reports he has lesions on his penis that are super painful. Patient reports today he has had nausea and vomited about 10-20 times. Patient reports he just generally feels weak all over. Patient also reports headache. TRAVEL OUTSIDE OF THE [place] IN LAST 30 DAYS: No - Related Data Allergies/Adverse Reactions: lactose [Lactose] Adverse Reaction (Mild, Verified 09/09/19 18:13) Nausea Past Medical History - Social History Chew tobacco use (# tins/day): No Frequency of alcohol use: None Drug Abuse: None - Past Medical History Cardiac Medical History: Reports: Hx Hypertension Pulmonary Medical History: Reports: Hx Asthma Neurological Medical History: Reports: Hx Migraine Renal/ Medical History: Denies: Hx Peritoneal Dialysis GI Medical History: Reports: Hx Gastritis, Hx Gastroesophageal Reflux Disease, Hx Ulcer, Hx Endoscopy Musculoskeltal Medical History: Reports Hx Musculoskeletal Trauma Psychiatric Medical History: Reports: Hx Anxiety Traumatic Medical History: Reports: Hx Fractures - Fingers and nose Past Surgical History: Reports: Hx Abdominal Surgery - HERNIA, Hx Inguinal Hernia - Immunizations Immunizations up to date: Yes Hx Diphtheria, Pertussis, Tetanus Vaccination: Yes - 2016 Physical Exam - Vital signs Vitals: Temp Pulse Resp BP Pulse Ox 99.3 F 88 16 152/92 H 97 09/09/19 18:07 09/09/19 18:07 09/09/19 18:07 09/09/19 18:07 09/09/19 18:07 - Respiratory Respiratory status: No respiratory distress Chest status: Nontender Breath sounds: Normal Chest palpation: Normal Course - Re-evaluation Re-evalutation: 09/09/19 18:24 I have greeted and performed a rapid initial assessment of this patient. A c omprehensive ED assessment and evaluation of the patient, analysis of test results and completion of the medical decision making process will be conducted by additional ED providers. - Vital Signs Vital signs: Temp Pulse Resp BP Pulse Ox 99.3 F 88 16 152/92 H 97 09/09/19 18:07 09/09/19 18:07 09/09/19 18:07 09/09/19 18:07 09/09/19 18:07
[2019-09-09] MEDS ORDERED: KETOROLAC TROMETHAMINE INJ/PF 30 MG/1 ML SDV IV ONE (18:30)
[2019-09-09] MEDS ORDERED: METOCLOPRAMIDE HCL INJ/PF 10 MG/2 ML SDV IV ONE (18:31)
[2019-09-09] MEDS ORDERED: DIPHENHYDRAMINE HCL 50 MG/ML VIAL IV ONE (18:31)
[2019-09-09 19:14] LABS: ABSOLUTE EOSINOPHILS # (AUTO) 0.2 10^3/uL (0.0-0.6); ABSOLUTE LYMPHOCYTES (AUTO) 1.6 10^3/uL (0.5-4.7); ABSOLUTE MONOCYTES (AUTO) 0.6 10^3/uL (0.1-1.4); ABSOLUTE NEUT (AUTO) 5.2 10^3/uL (1.7-8.2); BASOPHILS % (AUTO) 0.4 % (0-2); EOSINOPHILS % (AUTO) 2.9 % (0-6); HEMATOCRIT 34.9 % (37.9-51.0); HEMOGLOBIN 12.3 g/dL (13.5-17.0); LYMPHOCYTES % (AUTO) 21.5 % (13-45); MEAN CORPUSCULAR HEMOGLOBIN 33.8 pg (27.0-33.4); MEAN CORPUSCULAR HGB CONC 35.1 g/dL (32.0-36.0); MEAN CORPUSCULAR VOLUME 96 fl (80-97); MONOCYTES % (AUTO) 7.3 % (3-13); PLATELET COUNT 278 10^3/uL (150-450); RED BLOOD COUNT 3.63 10^6/uL (4.35-5.55); RED CELL DISTRIBUTION WIDTH 12.3 % (11.5-14.0); SEGMENTED NEUTROPHILS % (AUTO) 67.9 % (42-78); TOTAL CELLS COUNTED % (AUTO) 100 %; WHITE BLOOD COUNT 7.6 10^3/uL (4.0-10.5)
[2019-09-09 19:18] LABS: APPEARANCE,URINE CLEAR; BILIRUBIN,URINE NEGATIVE (NEGATIVE); COLOR,URINE STRAW; GLUCOSE, URINE NEGATIVE (NEGATIVE); KETONES,URINE NEGATIVE (NEGATIVE); LEUKOCYTE ESTERASE,URINE NEGATIVE (NEGATIVE); NITRITE,URINE NEGATIVE (NEGATIVE); PROTEIN,URINE NEGATIVE (NEGATIVE); URINE SPECIFIC GRAVITY 1.012; UROBILINOGEN,URINE NEGATIVE mg/dL (<2.0)
[2019-09-09 19:32] LABS: ALBUMIN 3.9 g/dL (3.5-5.0); ALKALINE PHOSPHATASE 37 U/L (38-126); ASPARTATE AMINO TRANSFERASE 34 U/L (17-59); BILIRUBIN,TOTAL 0.5 mg/dL (0.2-1.3); BLOOD UREA NITROGEN 10 mg/dL (7-20); CALCIUM 9.4 mg/dL (8.4-10.2); GLUCOSE 138 mg/dL (75-110); POTASSIUM 3.9 mmol/L (3.6-5.0); TOTAL PROTEIN 6.9 g/dL (6.3-8.2)
[2019-09-09 19:37] LABS: CARBON DIOXIDE 32 mmol/L (22-30); CHLORIDE 102 mmol/L (98-107)
[2019-09-09 19:38] LABS: ANION GAP 2 (5-19)
--- NOTE | 2019-09-09 20:56 | ER Document Report ---
ED General - General Chief Complaint: Nausea/Vomiting Stated Complaint: DOESNT FEEL WELL Time Seen by Provider: 09/09/19 18:13 Primary Care Provider: [facility] [Provider Group] - Follow up as needed [facility] [Provider Group] - Follow up in 1 week Notes: Patient is a 38-year-old male that comes emergency department with multiple complaints. Patient states that he has a painful rash on his genitals that has been present for several days, he was evaluated for this several days ago, given Rocephin and azithromycin here, placed on antibiotics and acyclovir but did not fill the prescription because he did not have the money reportedly. He also states that he is out of his blood pressure medication and he has been getting frequent headaches ever since he ran out 1 week ago. He states he had nausea and vomiting and vomited multiple times a day, denies abdominal pain, chest pain, fever, dysuria, discharge, or other locations of rash. He states he had lesions on his abdomen which were infected on and off for a while but these have actually healed and are gone now. Patient denies illegal drugs, he does smoke, denies alcohol. TRAVEL OUTSIDE OF THE [place] IN LAST 30 DAYS: No - Related Data Allergies/Adverse Reactions: lactose [Lactose] Adverse Reaction (Mild, Verified 09/09/19 18:13) Nausea Past Medical History - General Information source: Patient - Social History Smoking Status: Current Every Day Smoker Chew tobacco use (# tins/day): No Frequency of alcohol use: None Drug Abuse: None Lives with: Family Family History: Reviewed & Not Pertinent, CAD, Other - CHF - Past Medical History Cardiac Medical History: Reports: Hx Hypertension Pulmonary Medical History: Reports: Hx Asthma Neurological Medical History: Reports: Hx Migraine Renal/ Medical History: Denies: Hx Peritoneal Dialysis GI Medical History: Reports: Hx Gastritis, Hx Gastroesophageal Reflux Disease, Hx Ulcer, Hx Endoscopy Musculoskeletal Medical History: Reports Hx Musculoskeletal Trauma Psychiatric Medical History: Reports: Hx Anxiety Traumatic Medical History: Reports: Hx Fractures - Fingers and nose Past Surgical History: Reports: Hx Abdominal Surgery - HERNIA, Hx Inguinal Hernia - Immunizations Immunizations up to date: Yes Hx Diphtheria, Pertussis, Tetanus Vaccination: Yes - 2017 Review of Systems - Review of Systems Constitutional: See HPI EENT: No symptoms reported Cardiovascular: No symptoms reported Respiratory: No symptoms reported Gastrointestinal: No symptoms reported Genitourinary: No symptoms reported Male Genitourinary: See HPI Musculoskeletal: No symptoms reported Skin: See HPI Hematologic/Lymphatic: No symptoms reported Neurological/Psychological: See HPI Physical Exam - Vital signs Vitals: Temp Pulse Resp BP Pulse Ox 99.3 F 88 16 152/92 H 97 09/09/19 18:07 09/09/19 18:07 09/09/19 18:07 09/09/19 18:07 09/09/19 18:07 - Notes Notes: GENERAL: Sleeping but easily aroused, interactive, well-appearing, conversational HEAD: Normocephalic, atraumatic. EYES: Pupils equal, round, and reactive to light. Extraocular movements intact. ENT: Oral mucosa moist, tongue midline. Oropharynx unremarkable. Airway patent. NECK: Full range of motion. Supple. Trachea midline. No lymphadenopathy. LUNGS: Clear to auscultation bilaterally, no wheezes, rales, or rhonchi. No respiratory distress. Non-tender chest wall. HEART: Regular rate and rhythm. No murmur ABDOMEN: Soft, non-tender. Non-distended. Bowel sounds present in all 4 q uadrants. GENITOURINARY: Small area over the right lateral aspect of the shaft of the penis just behind the glans which appears to be recently opened vesicles in a small group. There is no significant tenderness to the area, no surrounding erythema or swelling, no pustules, bulla, induration, fluctuance. No discharge or other abnormality noted. No noted lymphadenopathy. No swelling or tenderne ss to the scrotum. Evaluation performed with Elicia MONAHAN at bedside EXTREMITIES: Moves all 4 extremities spontaneously. No edema, normal radial and dorsalis pedis pulses bilaterally. No cyanosis. BACK: no cervical, thoracic, lumbar midline tenderness. No saddle anesthesia, normal distal neurovascular exam. Moves all extremities in full range of motion. NEUROLOGICAL: Alert and oriented x3. Normal speech. Cranial nerves II through XII grossly intact. Strength 5/5 in all extremities. PSYCH: Normal affect, normal mood. SKIN: Warm, dry, normal turgor. No rashes or lesions noted. Course - Re-evaluation Re-evalutation: On my evaluation patient sleeping and easily aroused, he has been medicated for his headache from triage, he has no headache on my evaluation. He tells me has been getting headaches ever since he ran out of his blood pressure medication. Blood pressure is not extremely elevated here, he has no neurological deficits, and headache did resolve with treatment. Low suspicion of intracranial hemorrhage. Patient indicates where he had skin infections on his abdomen but these have healed and are resolved. No fever. CBC unremarkable, chemistry unremarkable, urinalysis unremarkable on review from triage. Patient does have an area that appears to be healing vesicles on the shaft of the penis, he was just treated with Rocephin and azithromycin for potential urethritis so repeat testing for gonorrhea chlamydia was not performed. He states he has not been sexually active recently, especially not since he has had the symptoms. Patient was provided with acyclovir on request for this. He was provided with nausea medication on request. He was provided with hydrochlorothiazide for his blood pressure and strongly encouraged to follow-up with primary care for additional management of this. Patient states understanding and agreement. Stable and well-appearing with no reported symptoms at time of discharge. - Vital Signs Vital signs: Temp Pulse Resp BP Pulse Ox 98.9 F 75 18 142/89 H 98 09/09/19 21:36 09/09/19 21:36 09/09/19 21:36 09/09/19 21:36 09/09/19 21:36 - Laboratory Result Diagrams: 09/09/19 19:00 09/09/19 19:00 Laboratory results interpreted by me: 09/09/19 09/09/19 19:00 19:00 RBC 3.63 L Hgb 12.3 L Hct 34.9 L MCH 33.8 H Sodium 136.2 L Carbon Dioxide 32 H Anion Gap 2 L Glucose 138 H Alkaline Phosphatase 37 L Discharge - Discharge Clinical Impression: Lesion of penis, Essential hypertension Vomiting Qualifiers: Vomiting type: unspecified Vomiting Intractability: non-intractable Nausea presence: with nausea Qualified Code(s): R11.2 - Nausea with vomiting, unspecified Condition: Stable Disposition: HOME, SELF-CARE Additional Instructions: Your workup does not show any concerning findings. Your evaluation is consistent with a herpes lesion. Take the acyclovir as prescribed, avoid sexual intercourse until this is completely gone. Take nausea medication if needed. Take the blood pressure medication as prescribed. Follow-up with primary care for additional management. Return for any concerning symptoms including severe headache, vomiting, fever, developing or spreading redness, or any other concerning or worsening symptoms. Prescriptions: Acyclovir [Acyclovir 400 mg Tablet] 2 tab PO ASDIR #70 tablet Hydrochlorothiazide [Hydrodiuril 25 mg Tablet] 25 mg PO QAM #30 tablet Promethazine HCl [Phenergan 25 mg Tablet] 25 mg PO Q6H PRN #15 tablet PRN Reason: Referrals: [facility] [Provider Group] - Follow up as needed [facility] [Provider Group] - Follow up in 1 week
[2019-09-09] MEDS ORDERED: ACYCLOVIR 800 MG TABLET PO ONE (21:00)
[2019-09-09] MEDS ORDERED: HYDROCHLOROTHIAZIDE 25 MG TABLET PO ONE (21:00)
[2019-09-09] MEDS ORDERED: ACYCLOVIR 800 MG TABLET ONE (21:15)
[2019-09-09 21:38] VITALS: BP 142/89
== END 2019-09-09 21:36 | disposition home or self-care (01) ==
LOC: ER 18:03
DX: R11.2 Nausea with vomiting, unspecified (principal); I10 Essential (primary) hypertension; R21 Rash and other nonspecific skin eruption; T36.96XA Underdosing of unspecified systemic antibiotic, initial encounter; T37.5X6A Underdosing of antiviral drugs, initial encounter; Z91.120 Patient's intentional underdosing of medication regimen due to financial hardship; Z91.14 Patient's other noncompliance with medication regimen; R51 Headache; F17.200 Nicotine dependence, unspecified, uncomplicated; J45.909 Unspecified asthma, uncomplicated
CPT/HCPCS: 99283; 96361; 96374; 96375; 36415; 85025; 80053; 81001; J1200; J1885; J2765; J3490; J7030

== ENCOUNTER 2019-10-29 11:27 | Emergency (ER) | payer SELFPAY ==
[2019-10-29 11:33] VITALS: BP 144/73
[2019-10-29] MEDS ORDERED: HYDROCODONE/ACETAMINOPHEN 5-325 MG TABLET PO ONE (12:16)
[2019-10-29] MEDS ORDERED: CEPHALEXIN 500 MG CAPSULE PO ONE (12:16)
--- NOTE | 2019-10-29 12:21 | ER Document Report ---
ED Hand/Wrist Injury - General Chief Complaint: Finger Injury Stated Complaint: FINGER SWELLING Time Seen by Provider: 10/29/19 12:09 Primary Care Provider: [facility] [Provider Group] - Follow up as needed [facility] [Provider Group] - Follow up as needed Mode of Arrival: Ambulatory Information source: Patient Notes: 39-year-old male presented to ED for paronychia right middle finger. He states he woke up with a swollen 3 days ago is not on anything about it it is gotten larger. He states he has not used his nail or cut his nails recently. He does have a paronychia. Oriented respirations regular nonlabored speaking in full sentences. I did clean it well with Betadine opened with an 18-gauge needle rinsed it was saline and water bacitracin applied and patient has been started on Keflex. He was given 1 [place] in the emergency room for the pain of the initial cut. He has been given discharge instructions and will be discharged home. TRAVEL OUTSIDE OF THE [place] IN LAST 30 DAYS: No - HPI Injury to: Middle finger Onset: Other - Days Timing: Worse Quality of pain: Sharp, Throbbing Severity: Severe Pain Level: 5 Context: Swelling - Related Data Allergies/Adverse Reactions: lactose [Lactose] Adverse Reaction (Mild, Verified 10/29/19 12:02) Nausea Past Medical History - General Information source: Patient - Social History Smoking Status: Current Every Day Smoker Cigarette use (# per day): Yes - 5 cigarettes a day Chew tobacco use (# tins/day): No Frequency of alcohol use: None Drug Abuse: None Lives with: Family Family History: Reviewed & Not Pertinent, CAD, Other - CHF Patient has homicidal ideation: No - Past Medical History Cardiac Medical History: Reports: Hx Hypertension Pulmonary Medical History: Reports: Hx Asthma EENT Medical History: Reports: None Neurological Medical History: Reports: Hx Migraine Endocrine Medical History: Reports: None Renal/ Medical History: Reports: None Malignancy Medical History: Reports None GI Medical History: Reports: Hx Gastritis, Hx Gastroesophageal Reflux Disease, Hx Ulcer, Hx Endoscopy Musculoskeletal Medical History: Reports Hx Musculoskeletal Trauma Skin Medical History: Reports None Psychiatric Medical History: Reports: Hx Anxiety Traumatic Medical History: Reports: Hx Fractures - Fingers and nose Infectious Medical History: Reports: None Past Surgical History: Reports: Hx Abdominal Surgery - HERNIA, Hx Inguinal Hernia - Immunizations Immunizations up to date: Yes Hx Diphtheria, Pertussis, Tetanus Vaccination: Yes - 2017 Review of Systems - Review of Systems Constitutional: No symptoms reported EENT: No symptoms reported Cardiovascular: No symptoms reported Respiratory: No symptoms reported Gastrointestinal: No symptoms reported Genitourinary: No symptoms reported Male Genitourinary: No symptoms reported Musculoskeletal: No symptoms reported Skin: Other - Right middle finger paronychia Hematologic/Lymphatic: No symptoms reported Neurological/Psychological: No symptoms reported Physical Exam - Vital signs Vitals: Temp Pulse Resp BP Pulse Ox 99.0 F 94 18 144/73 H 96 10/29/19 11:32 10/29/19 11:32 10/29/19 11:32 10/29/19 11:32 10/29/19 11:32 Interpretation: Normal - General General appearance: Appears well, Alert - HEENT Head: Normocephalic, Atraumatic Eyes: Normal Pupils: PERRL - Respiratory Respiratory status: No respiratory distress Chest status: Nontender Breath sounds: Normal Chest palpation: Normal - Cardiovascular Rhythm: Regular Heart sounds: Normal auscultation Murmur: No - Abdominal Inspection: Normal Distension: No distension Bowel sounds: Normal Tenderness: Nontender Organomegaly: No organomegaly - Back Back: Normal, Nontender - Extremities General upper extremity: Normal ROM, Normal temperature General lower extremity: Normal inspection, Nontender, Normal color, Normal ROM, Normal temperature, Normal weight bearing. No: Mallory's sign Hand: Tender, No evidence of human bite, No evidence of FB, Swelling, Other - Right middle finger paronychia - Neurological Neuro grossly intact: Yes Cognition: Normal Orientation: AAOx4 Domitila Coma Scale Eye Opening: Spontaneous Domitila Coma Scale Verbal: Oriented [place] Coma Scale Motor: Obeys Commands Domitila Coma Scale Total: 15 Speech: Normal Motor strength normal: LUE, RUE, LLE, RLE Sensory: Normal - Psychological Associated symptoms: Normal affect, Normal mood - Skin Skin Temperature: Warm Skin Moisture: Dry Skin Color: Normal Skin irregularity: Abscess - Right middle finger paronychia Course - Re-evaluation Re-evalutation: 10/29/19 22:40 After this the paronychia was opened with a 18-gauge needle it was rinsed well with saline and then water. Patient had bacitracin and bandage applied to the site. He was given 1 [place] for his discomfort and instructed to soak finger in Epson salt and take antibiotics as instructed. Patient verbalized understanding and agreement with treatment plan patient was discharged home. - Vital Signs Vital signs: Temp Pulse Resp BP Pulse Ox 99.0 F 94 18 144/73 H 96 10/29/19 11:32 10/29/19 11:32 10/29/19 11:32 10/29/19 11:32 10/29/19 11:32 Procedures - Incision and Drainage Right Finger 3rd digit Time completed: 12:15 Type: Simple - Paronychia Anesthetic type: Other - 0 mL's of anesthetic: 0 Blade size: Other - 18-gauge needle I&D procedure: Betadine prep applied Incision Method: Incision made with needle Amount/type of drainage: Large amount purulent drainage Discharge - Discharge Clinical Impression: Paronychia of finger of right hand Condition: Stable Disposition: HOME, SELF-CARE Additional Instructions: Paronychia You have an infection between the nail and the surrounding skin, called a paronychia. The germs infect the area after a minor skin injury, such as a hangnail. This infection is treated by releasing the pus. This is usually done by the skin from the nail. If the infection has spread underneath the nail, partial removal of the nail may be necessary. Hot-soak the area three or four times daily. Antibiotics are often given, but are not always necessary. Healing takes about a week. If pain or swelling becomes severe or if you develop fever or chills, call the doctor or return for re-examination. ABSCESS: You have an abscess (boil). This a pus-forming infection, usually due to staph. Some boils may be left to drain on their own, but most require lancing. From the time the tender lump first appears, it may be three or four days before the abscess is ready to fabiana. Local heat and rest help at this stage of treatment. An antibiotic may prevent spread of the infection. Once the abscess is opened, packing may be placed into it. This is done so pus is not sealed inside by premature closure of the cavity. The packing will be removed at your follow-up visit or you may be advised to remove it yourself at home. Sometimes this packing must be replaced a few times during healing. The wound will heal with surprisingly little scar. Depending on the size and location of an abscess, healing can take one to four weeks. You may shower and wash the area around the incision site two or three times a day. Antibiotics may be prescribed, but are usually not necessary after an abscess has been drained. If you develop fever, chills, worsening pain, or increasing swelling in the area, call the doctor or return immediately. ORAL NARCOTIC MEDICATION: You have been given a [place] for pain control. This medication is a narcotic. It's best taken with food, as nausea can result if taken on an empty stomach. Don't operate machinery or drive within six hours of taking this medication. Do not combine this medicine with alcohol, or with any medication which can cause sedation (such as cold tablets or sleeping pills) unless you get permission from the physician. Narcotics tend to cause constipation. If possible, drink plenty of fluids and eat a diet high in fiber and fruits. CEPHALEXIN: The antibiotic you've been prescribed is a member of the cephalosporin class. This type of antibiotic covers a wide variety of infections, including those of the skin, lungs, and urinary tract. It's useful for staph infections. This antibiotic is slightly similar to the penicillin family. In rare cases, a person who is allergic to penicillin will also be allergic to this medication. If you have had a severe allergic reaction to penicillin, and have not taken this antibiotic since that time, notify your doctor. Antibiotics which cover many germs ("broad spectrum" antibiotics) are more likely to cause diarrhea or "yeast" infections. Women prone to vaginal yeast problems may suffer an attack after taking this antibiotic. In infants, oral thrush (white spots "stuck" on the cheek) or yeast diaper rash may result. See your doctor if these problems occur. Call at once if you develop itching, hives, shortness of breath, or lightheadedness. Epsom Salt Soaks Soak the wound area in a container of warm epsom salt water. If you can't get the wound area into a bucket or bennett, use a folded towel soaked in the epsom salt solution and apply to the area. Use clean hot tap water (about the temperature of a very warm bath), mixing in about one (1) teaspoon for every pint of water. Two gallon --> 16 teaspoons Epsom Salts One gallon --> 8 teaspoons Epsom Salts Two quarts --> 4 teaspoons Epsom Salts One quart --> 2 teaspoons Epsom Salts Soak the wound for about 20 minutes while gently moving it around in the water. Repeat this four (4) times a day. Acetaminophen Acetaminophen may be taken for pain relief or fever control. It's much safer than aspirin, offering a wider range of "safe" dosages. It is safe during . Some brand names are Tylenol, Panadol, Datril, Anacin 3, Tempra, and Liquiprin. Acetaminophen can be repeated every four hours. The following are maximum recommended dosages: WEIGHT Dose Drops Elixir Chewable(80mg) (LBS.) drprs=droppers tsp=teaspoon 6 40 mg .4 ml (1/2) 6-11 80 mg .8 ml (full) 1/2 tsp 1 tab 12-16 120 mg 1 1/2 drprs 3/4 tsp 1 1/2 tabs 17-23 160 mg 2 drprs 1 tsp 2 tabs 24-30 240 mg 3 drprs 1 1/2 tsp 3 tabs 30-35 320 mg 2 tsp 4 tabs 36-41 360 mg 2 1/4 tsp 4 1/2 tabs 42-47 400 mg 2 1/2 tsp 5 tabs 48-53 480 mg 3 tsp 6 tabs 54-59 520 mg 3 1/4 tsp 6 1/2 tabs 60-64 560 mg 3 1/2 tsp 7 tabs 65-70 600 mg 3 3/4 tsp 7 1/2 tabs 71-76 640 mg 4 tsp 8 tabs 77-82 720 mg 4 1/2 tsp 9 tabs 83-88 800 mg 5 tsp 10 tabs >89 pounds or adults 650 mg to 900 mg Acetaminophen can be repeated every four hours. Maximum daily dose not to exceed 4000 mg. These maximum recommended dosages are slightly higher than the dosages written on the product container, but these dosages are very safe and well below the toxic dosage for acetaminophen. Ibuprofen Ibuprofen is an excellent, safe drug for pain control. In addition, it has potent antiinflammatory effects which are beneficial, especially in the treatment of injuries, arthritis, or tendonitis. It's best to take ibuprofen with food. Persons with ulcer disease or allergy to aspirin should notify their physician of this before taking ibuprofen. Take the medication exactly as prescribed. Don't take additional doses unless instructed to do so by your doctor. If you develop wheezing, shortness of breath, hives, faintness, stomach pain, vomiting, or dark black stools, return for re-evaluation at once. FOLLOW-UP CARE: Most simple abscesses will not require a follow up visit. If you had packing placed in the abscess, remove it as instructed by the physician. If you have been referred to a physician for follow-up care, call the physicians office for an appointment as you were instructed or within the next two days. If you expe rience worsening or a significant change in your symptoms, return to the Emergency Department at any time for re-evaluation. Prescriptions: Cephalexin Monohydrate [Keflex 500 mg Capsule] 500 mg PO Q6H 5 Days #20 capsule Referrals: [facility] [Provider [facility]] - Follow up as needed [facility] [Provider [facility]] - Follow up as needed
== END 2019-10-29 12:23 | disposition home or self-care (01) ==
LOC: ER 11:27
PROC: 0H9FXZZ Drainage of Right Hand Skin, External Approach (ICD-10-PCS; principal; 2019-10-29)
DX: L03.011 Cellulitis of right finger (principal); F17.210 Nicotine dependence, cigarettes, uncomplicated; Z88.8 Allergy status to other drugs, medicaments and biological substances; I10 Essential (primary) hypertension; J45.909 Unspecified asthma, uncomplicated
CPT/HCPCS: 99283

== ENCOUNTER 2019-11-06 03:15 | Emergency (ER) | payer SELFPAY ==
[2019-11-06] MEDS ORDERED: CEPHALEXIN 500 MG CAPSULE PO ONE (05:00)
[2019-11-06] MEDS ORDERED: NAPROXEN 250 MG TABLET PO ONE (05:00)
--- NOTE | 2019-11-06 05:05 | ER Document Report ---
ED Wound - General Chief Complaint: Laceration Stated Complaint: CUT FOOT Time Seen by Provider: 11/06/19 04:54 Notes: CHIEF COMPLAINT: Right foot laceration HPI: 39-year-old male presenting to the emergency department for evaluation of right foot laceration. Patient states that he is athlete's foot and was scratching at the foot with scissors and cut the foot accidentally. He believes that he is up-to-date on his tetanus vaccination. Denies other complaints at this time ROS: See HPI - all other systems were reviewed and are otherwise negative Constitutional: no fever Integumentary: no rash , + laceration Allergy: no hives Musculoskeletal: + extremity pain or swelling Neurological: no numbness/tingling, no weakness MEDICATIONS: I agree with the patient medications as charted by the RN. ALLERGIES: I agree with the allergies as charted by the RN. PAST MEDICAL HISTORY/PAST SURGICAL HISTORY: Reviewed and agree as charted by RN. SOCIAL HISTORY: Reviewed and agree as charted by RN. FAMILY HISTORY: No significant familial comorbid conditions directly related to patient complaint EXAM: Reviewed vital signs as charted by RN. CONSTITUTIONAL: Alert and oriented and responds appropriately to questions. Well-appearing; well-nourished HEAD: Normocephalic; atraumatic EYES: Conjunctivae clear, sclerae non-icteric ENT: normal nose; no rhinorrhea; moist mucous membranes NECK: Supple without meningismus CARD: symmetric distal pulses RESP: Normal chest excursion without splinting or tachypnea ABD/GI: non-distended BACK: The back appears normal EXT: Normal ROM in all joints; no cyanosis, no effusions, no edema SKIN: Normal color for age and race; warm; dry; good turgor; there is a 2 cm superficial flap type laceration on the plantar aspect of the right foot proximal to the MTP joint of the great toe. No active bleeding currently. No visible foreign body. NEURO: Moves all extremities equally; Motor and sensory function intact PSYCH: The patient's mood and manner are appropriate. Grooming and personal hygiene are appropriate. MDM: 39-year-old male with a laceration on the plantar aspect of the right foot. Given the location and type of wound will not plan to close this wound area given the risk for infection this was discussed at length with the patient. We will place a bulky dressing on the wound area after cleaning, place the patient on a course of antibiotics limited weightbearing with crutches, remove the dressing in 24 hours and then redress until healed. I will place the patient on Lotrisone for possible athlete's foot although I do not visualize a definitive rash between the toes TRAVEL OUTSIDE OF THE [place] IN LAST 30 DAYS: No - Related Data Allergies/Adverse Reactions: lactose [Lactose] Adverse Reaction (Mild, Verified 10/29/19 12:02) Nausea Past Medical History - Social History Smoking Status: Current Every Day Smoker Chew tobacco use (# tins/day): No Frequency of alcohol use: None Drug Abuse: None Family History: Reviewed & Not Pertinent, CAD, Other - CHF Patient has homicidal ideation: No - Past Medical History Cardiac Medical History: Reports: Hx Hypertension Pulmonary Medical History: Reports: Hx Asthma Neurological Medical History: Reports: Hx Migraine Renal/ Medical History: Denies: Hx Peritoneal Dialysis GI Medical History: Reports: Hx Gastritis, Hx Gastroesophageal Reflux Disease, Hx Ulcer, Hx Endoscopy Musculoskeletal Medical History: Reports Hx Musculoskeletal Trauma Psychiatric Medical History: Reports: Hx Anxiety Traumatic Medical History: Reports: Hx Fractures - Fingers and nose Past Surgical History: Reports: Hx Abdominal Surgery - HERNIA, Hx Inguinal Hernia - Immunizations Immunizations up to date: Yes Hx Diphtheria, Pertussis, Tetanus Vaccination: Yes - 2016 Physical Exam - Vital signs Vitals: Temp Pulse Resp BP Pulse Ox 97.9 F 81 18 140/89 H 96 11/06/19 03:38 11/06/19 03:38 11/06/19 03:38 11/06/19 03:38 11/06/19 03:38 Course - Vital Signs Vital signs: Temp Pulse Resp BP Pulse Ox 97.9 F 81 18 140/89 H 96 11/06/19 03:38 11/06/19 03:38 11/06/19 03:38 11/06/19 03:38 11/06/19 03:38 Discharge - Discharge Clinical Impression: Athlete's foot on right Laceration of foot, right Qualifiers: Encounter type: initial encounter Qualified Code(s): S91.311A - Laceration without foreign body, right foot, initial encounter Condition: Stable Disposition: HOME, SELF-CARE Additional Instructions: Leave the dressing on for 24 hours then change the dressing daily, wash the area gently with soap and water and apply a small amount of antibiotic ointment until healed. Take the oral antibiotics as prescribed if you develop any redness or swelling to the wound area return for reevaluation. Nonweightbearing for the next 3 days then weightbearing as tolerated to give the wound area a chance to heal. Take naproxen consistently for pain. Do not use scissors to scratch at the foot. Use the Lotrisone cream between the toes to help with athlete's foot Prescriptions: Cephalexin Monohydrate [Keflex 500 mg Capsule] 500 mg PO Q6H 7 Days #28 capsule Clotrimazole/Betamethasone Dip [Lotrisone Cream 15 gm] 1 applic TP BID 5 Days #1 tube Naproxen 500 mg PO BID PRN #14 tablet PRN Reason: Referrals: JESSICA DICK DO [NO LOCAL MD] - Follow up as needed
[2019-11-06 05:19] VITALS: BP 138/83
== END 2019-11-06 05:46 | disposition home or self-care (01) ==
LOC: ER 03:15
DX: S91.311A Laceration without foreign body, right foot, initial encounter (principal); W26.8XXA Contact with other sharp object(s), not elsewhere classified, initial encounter; Y93.89 Activity, other specified; B35.3 Tinea pedis; F17.200 Nicotine dependence, unspecified, uncomplicated; I10 Essential (primary) hypertension; J45.909 Unspecified asthma, uncomplicated
CPT/HCPCS: 99283

== ENCOUNTER 2019-12-19 11:41 | Emergency (ER) | payer SELFPAY ==
[2019-12-19] MEDS ORDERED: ASPIRIN 325 MG TABLET PO ONE (12:12)
[2019-12-19] MEDS ORDERED: CLONIDINE HCL 0.1 MG TABLET PO ONE (12:12)
[2019-12-19 12:19] LABS: ABSOLUTE EOSINOPHILS # (AUTO) 0.6 10^3/uL (0.0-0.6); ABSOLUTE LYMPHOCYTES (AUTO) 4.1 10^3/uL (0.5-4.7); ABSOLUTE MONOCYTES (AUTO) 0.7 10^3/uL (0.1-1.4); ABSOLUTE NEUT (AUTO) 3.8 10^3/uL (1.7-8.2); BASOPHILS % (AUTO) 0.4 % (0-2); EOSINOPHILS % (AUTO) 6.2 % (0-6); HEMATOCRIT 36.2 % (37.9-51.0); HEMOGLOBIN 12.9 g/dL (13.5-17.0); LYMPHOCYTES % (AUTO) 44.6 % (13-45); MEAN CORPUSCULAR HEMOGLOBIN 33.8 pg (27.0-33.4); MEAN CORPUSCULAR HGB CONC 35.7 g/dL (32.0-36.0); MEAN CORPUSCULAR VOLUME 95 fl (80-97); MONOCYTES % (AUTO) 7.9 % (3-13); PLATELET COUNT 295 10^3/uL (150-450); RED BLOOD COUNT 3.83 10^6/uL (4.35-5.55); RED CELL DISTRIBUTION WIDTH 12.7 % (11.5-14.0); SEGMENTED NEUTROPHILS % (AUTO) 40.9 % (42-78); TOTAL CELLS COUNTED % (AUTO) 100 %; WHITE BLOOD COUNT 9.2 10^3/uL (4.0-10.5)
--- NOTE | 2019-12-19 12:20 | EKG REPORT ---
SEVERITY:- ABNORMAL ECG - SINUS TACHYCARDIA PROBABLE RIGHT VENTRICULAR HYPERTROPHY : Confirmed by: Leo Contreras MD 19-Dec-2019 12:20:36
[2019-12-19] MEDS ORDERED: ONDANSETRON HCL INJ/PF 4 MG/2 ML SDV IV ONE (12:33)
[2019-12-19] MEDS ORDERED: ONDANSETRON HCL INJ/PF 4 MG/2 ML SDV ONE (12:34)
[2019-12-19 12:36] LABS: ALBUMIN 4.6 g/dL (3.5-5.0); ALKALINE PHOSPHATASE 51 U/L (38-126); ANION GAP 10 (5-19); ASPARTATE AMINO TRANSFERASE 40 U/L (17-59); BILIRUBIN,DIRECT 0.2 mg/dL (0.0-0.4); BILIRUBIN,TOTAL 0.5 mg/dL (0.2-1.3); BLOOD UREA NITROGEN 18 mg/dL (7-20); CALCIUM 9.6 mg/dL (8.4-10.2); CARBON DIOXIDE 27 mmol/L (22-30); CHLORIDE 102 mmol/L (98-107); GLUCOSE 130 mg/dL (75-110); POTASSIUM 3.8 mmol/L (3.6-5.0); TOTAL PROTEIN 8.2 g/dL (6.3-8.2)
--- NOTE | 2019-12-19 13:45 | RADIOLOGY REPORT (SQ) ---
EXAM DESCRIPTION: CTA CHEST IMAGES COMPLETED DATE/TIME: 12/19/2019 1:26 pm REASON FOR STUDY: cp/sob COMPARISON: 08/22/2016 TECHNIQUE: CT scan of the chest performed using helical scanning technique with dynamic intravenous contrast injection. Images reviewed with lung, soft tissue and bone windows. Reconstructed coronal and sagittal MPR images reviewed. Additional 3 dimensional post-processing performed to develop Maximal Intensity Projection images (AK P). All images stored on PACS. All CT scanners at this facility use dose modulation, iterative reconstruction, and/or weight based d osing when appropriate to reduce radiation dose to as low as reasonably achievable (ALARA). [facility]: Dose Right [facility]: CareDose [facility]: Dose Right [facility]: Teradose 4D [facility]: Kartela CONTRAST TYPE AND DOSE: contrast/concentration: Isovue 350.00 mmol/ml; Total Contrast Delivered: 65. 0 ml; Total Saline Delivered: 70.0 ml Contrast bolus adequate for pulmonary arteries and aorta. RENAL FUNCTION: BUN 18; creatinine 0.99 RADIATION DOSE: CT Rad equipment meets quality standard of care and radiation dose reduction techniq ues were employed. CTDIvol: 3.3 - 20.1 mGy. DLP: 703 mGy-cm. . LIMITATIONS: None. FINDINGS: LUNGS AND PLEURA: Re- demonstration of paraseptal emphysematous changes involving the apic al lungs. No focal consolidation, pleural effusion, or pneumothorax. AORTA AND GREAT VESSELS: No aneurysm. No dissection. HEART: No pericardial effusion. Scant coronary artery calcifications. PULMONARY ARTERIES: No emboli visualized in the main pulmonary arteries or the segmental branches. HILAR AND MEDIASTINAL STRUCTURES: Residual versus reactive thymus. No masses. No lymphadenopathy. HARDWARE: None in the chest. UPPER ABDOMEN: No significant findings. Limited exam. THYROID AND OTHER SOFT TISSUES: Bilateral gynecomastia. BONES: No acute or significant finding. 3D MIPS: Confirm above findings. OTHER: No other significant finding. IMPRESSION: No central or segmental pulmonary embolus. Stable chronic and incidental findings as de tailed above. COMMENT: Quality ID # [id number]: Final reports with documentation of one or more dose reduction techniques (e.g., Automated exposure control, adjustment of the mA and/or kV according to patient size, use of iterative reconstruction technique) TECHNICAL DOCUMENTATION: JOB ID: [id number] 2010 [employer]- All Rights Reserved Reading location - IP/workstation name: [email or web address]
[2019-12-19 14:34] LABS: APPEARANCE,URINE CLEAR; BILIRUBIN,URINE NEGATIVE (NEGATIVE); COLOR,URINE YELLOW; GLUCOSE, URINE NEGATIVE (NEGATIVE); KETONES,URINE NEGATIVE (NEGATIVE); PROTEIN,URINE NEGATIVE (NEGATIVE); UROBILINOGEN,URINE NEGATIVE mg/dL (<2.0)
[2019-12-19 14:40] LABS: URINE SPECIFIC GRAVITY > 1.060
[2019-12-19 15:02] LABS: URINE AMPHETAMINES SCREEN NEGATIVE; URINE BARBITURATES SCREEN NEGATIVE; URINE BENZODIAZEPINES SCREEN NEGATIVE; URINE COCAINE SCREEN NEGATIVE; URINE MARIJUANA (THC) SCREEN NEGATIVE; URINE PHENCYCLIDINE SCREEN NEGATIVE
[2019-12-19 15:03] LABS: URINE METHADONE SCREEN UNCONFIRMED POSITIVE
--- NOTE | 2019-12-19 16:08 | ER Document Report ---
ED Cardiac - General Chief Complaint: Chest Pain Stated Complaint: CHEST PAIN Time Seen by Provider: 12/19/19 11:59 Mode of Arrival: Ambulatory Information source: Patient TRAVEL OUTSIDE OF THE [place] IN LAST 30 DAYS: No - HPI Notes: Patient comes in complaining of chest pain. He states his pain started while he was resting at home. He states that this pain is right-sided and sharp. Nothing makes it better or worse. Is constant. Is moderate. Patient repeatedly states "am I going to be okay". Patient states he also feels somewhat short of breath. Patient denies any recent cough or cold symptoms. He states that he does go to methadone clinic. He states he started doing this 1 week ago. He states he went to methadone clinic this morning before he went back home. He denies any recent illicit drug use. He denies any past medical history of cardiac or pulmonary disease. No previous history of PEs or DVTs. No recent trauma. No cough cold or congestion. - Related Data Allergies/Adverse Reactions: lactose [Lactose] Adverse Reaction (Mild, Verified 10/29/19 12:02) Nausea Home Medications: Methadone Past Medical History - General Information source: Patient - Social History Smoking Status: Current Every Day Smoker Chew tobacco use (# tins/day): No Frequency of alcohol use: None Drug Abuse: Heroin Family History: Reviewed & Not Pertinent, CAD, Other - CHF Patient has homicidal ideation: No - Past Medical History Cardiac Medical History: Reports: Hx Hypertension Pulmonary Medical History: Reports: Hx Asthma Neurological Medical History: Reports: Hx Migraine Renal/ Medical History: Denies: Hx Peritoneal Dialysis GI Medical History: Reports: Hx Gastritis, Hx Gastroesophageal Reflux Disease, Hx Ulcer, Hx Endoscopy Musculoskeletal Medical History: Reports Hx Musculoskeletal Trauma Psychiatric Medical History: Reports: Hx Anxiety Traumatic Medical History: Reports: Hx Fractures - Fingers and nose Past Surgical History: Reports: Hx Abdominal Surgery - HERNIA, Hx Inguinal Hernia - Immunizations Immunizations up to date: Yes Hx Diphtheria, Pertussis, Tetanus Vaccination: Yes - 2017 Review of Systems - Review of Systems Constitutional: denies: Chills, Fever Cardiovascular: Chest pain. denies: Palpitations Respiratory: Short of breath. denies: Cough -: Yes All other systems reviewed and negative Physical Exam - Vital signs Vitals: Temp 98.0 F 12/19/19 11:41 Interpretation: Hypertensive, Tachycardic - General General appearance: Appears well, Alert - HEENT Head: Normocephalic, Atraumatic Eyes: Normal Pupils: PERRL - Respiratory Respiratory status: No respiratory distress Chest status: Nontender Breath sounds: Normal Chest palpation: Normal - Cardiovascular Rhythm: Tachycardia Heart sounds: Normal auscultation Murmur: No - Abdominal Inspection: Normal Distension: No distension Bowel sounds: Normal Tenderness: Nontender Organomegaly: No organomegaly - Back Back: Normal, Nontender - Extremities General upper extremity: Normal inspection, Nontender, Normal color, Normal ROM, Normal temperature General lower extremity: Normal inspection, Nontender, Normal color, Normal ROM, Normal temperature, Normal weight bearing. No: Mallory's sign - Neurological Neuro grossly intact: Yes Cognition: Normal Orientation: AAOx4 Domitila Coma Scale Eye Opening: Spontaneous Domitila Coma Scale Verbal: Oriented Domitila Coma Scale Motor: Obeys Commands Domitila Coma Scale Total: 15 Speech: Normal Motor strength normal: LUE, RUE, LLE, RLE Sensory: Normal - Psychological Associated symptoms: Agitated, Psychomotor agitation - Skin Skin Temperature: Warm Skin Moisture: Dry Skin Color: Normal Course - Re-evaluation Re-evalutation: 12/19/19 16:08 Patient was reassessed at 4 PM. He states he feels significantly better. He now admits that he snorted heroin just before he came here and that he was scared. Patient also states that he is exposed to be on blood pressure medicine but does not take it. He states he would like to have a new prescription for blood pressure medicine. Patient states that he is not going to use heroin anymore. Patient's work-up is unremarkable other than he has a biphasic T wave in V2 but no other significant ischemic changes. Due to this being in one lead only and patient now feeling better I feel that this is most appropriately worked up as an outpatient. I will refer the patient to cardiology. - Vital Signs Vital signs: Temp Pulse Resp BP Pulse Ox 98.1 F 75 24 H 123/61 94 12/19/19 11:52 12/19/19 13:11 12/19/19 14:01 12/19/19 14:00 12/19/19 14:01 - Laboratory Result Diagrams: 12/19/19 12:10 12/19/19 12:10 Laboratory results interpreted by me: 12/19/19 12/19/19 12:10 12:10 RBC 3.83 L Hgb 12.9 L Hct 36.2 L MCH 33.8 H Eos % (Auto) 6.2 H Seg Neutrophils % 40.9 L Glucose 130 H - Diagnostic Test Radiology reviewed: Image reviewed, Reports reviewed - EKG Interpretation by Me EKG shows normal: Sinus rhythm Rate: Tachycardia - 109 Rhythm: NSR [place]/QRS: No: Right axis deviation, Left axis deviation Discharge - Discharge Clinical Impression: Heroin abuse, Uncontrolled hypertension Chest pain Qualifiers: Chest pain type: unspecified Qualified Code(s): R07.9 - Chest pain, unspecified Condition: Stable Disposition: HOME, SELF-CARE Instructions: Chest Pain of Unclear Cause ([facility]), Narcotic Abuse ([facility]) Additional Instructions: Please call Dr. Mazariegos as soon as possible to arrange follow up. Prescriptions: Amlodipine Besylate [Norvasc 2.5 mg Tablet] 2.5 mg PO DAILY #30 tablet Forms: Return to Work Referrals: DOUGLAS MAZARIEGOS MD [ACTIVE STAFF] - Follow up in 3-5 days
[2019-12-19 16:12] VITALS: BP 141/98
== END 2019-12-19 16:19 | disposition home or self-care (01) ==
LOC: ER 11:41
DX: R07.9 Chest pain, unspecified (principal); I10 Essential (primary) hypertension; F11.10 Opioid abuse, uncomplicated; J45.909 Unspecified asthma, uncomplicated; R06.02 Shortness of breath; R00.0 Tachycardia, unspecified; F17.200 Nicotine dependence, unspecified, uncomplicated
CPT/HCPCS: 93005; 99285; 96374; 36415; 85025; 80053; 81001; 84484; 80307; 71275; 93010; J2405

== ENCOUNTER 2020-01-07 22:31 | Emergency (ER) | payer SELFPAY ==
[2020-01-07] MEDS ORDERED: LIDOCAINE 1% INJ-PF (10 MG/ML) 30 ML SDV INJ ONE (22:59)
--- NOTE | 2020-01-07 23:01 | ER Document Report ---
ED Medical Screen (RME) - General Chief Complaint: Finger Injury Stated Complaint: POSSIBLE INFECTION Time Seen by Provider: 01/07/20 22:55 Notes: Patient is a 39-year-old male who presents emergency department with 2 complaints. His first complaint is that he has swelling to his left fourth digit. Patient has history of a paronychia in the past and has had it drained. Patient also has had a cough, "for a while." He was recently tested for COVID- 19 and it was negative. Exam: Paronychia noted to left fourth digit. Cough noted. I have greeted and performed a rapid initial assessment of this patient. A comprehensive ED assessment and evaluation of the patient, analysis of test results and completion of medical decision making process will be conducted by an additional ED providers. TRAVEL OUTSIDE OF THE [place] IN LAST 30 DAYS: No - Related Data Allergies/Adverse Reactions: lactose [Lactose] Adverse Reaction (Mild, Verified 10/29/19 12:02) Nausea Home Medications: methadone Past Medical History - Social History Chew tobacco use (# tins/day): No Frequency of alcohol use: None Drug Abuse: None - Past Medical History Cardiac Medical History: Reports: Hx Hypertension Pulmonary Medical History: Reports: Hx Asthma Neurological Medical History: Reports: Hx Migraine Renal/ Medical History: Denies: Hx Peritoneal Dialysis GI Medical History: Reports: Hx Gastritis, Hx Gastroesophageal Reflux Disease, Hx Ulcer, Hx Endoscopy Musculoskeltal Medical History: Reports Hx Musculoskeletal Trauma Psychiatric Medical History: Reports: Hx Anxiety Traumatic Medical History: Reports: Hx Fractures - Fingers and nose Past Surgical History: Reports: Hx Abdominal Surgery - HERNIA, Hx Inguinal Hernia - Immunizations Immunizations up to date: Yes Hx Diphtheria, Pertussis, Tetanus Vaccination: Yes - 2016 Physical Exam - Vital signs Vitals: Temp Pulse Resp BP Pulse Ox 98.2 F 71 15 157/86 H 94 01/07/20 22:37 01/07/20 22:37 01/07/20 22:37 01/07/20 22:37 01/07/20 22:37 Course - Vital Signs Vital signs: Temp Pulse Resp BP Pulse Ox 98.2 F 71 15 157/86 H 94 01/07/20 22:57 01/07/20 22:37 01/07/20 22:37 01/07/20 22:37 01/07/20 22:37
--- NOTE | 2020-01-07 23:32 | RADIOLOGY REPORT (SQ) ---
EXAM DESCRIPTION: X-ray, two views of the chest CLINICAL HISTORY: 39 years Male, cough COMPARISON: Single view of the chest 08/21/2019 FINDINGS: Lungs: Lungs are clear. No pneumonia or edema. No pneumothorax or pleural effusion. Mediastinum: Cardiac and mediastinal silhouette are normal. Bones: Osseous structures are normal. IMPRESSION: No acute process. No significant interval change.
[2020-01-07] MEDS ORDERED: IBUPROFEN 800 MG TABLET PO ONE (23:49)
--- NOTE | 2020-01-07 23:55 | ER Document Report ---
ED General - General Chief Complaint: Finger Injury Stated Complaint: POSSIBLE INFECTION Time Seen by Provider: 01/07/20 22:55 Primary Care Provider: [facility] [Provider Group] - Follow up as needed TRAVEL OUTSIDE OF THE [place] IN LAST 30 DAYS: No - HPI Notes: Patient is a 39-year-old male with HTN who presents with left ring finger paronychia that began 5 days ago. He reports pain but no active drainage to the area. He also reports wheezing and a cough for the past month. Patient states the cough is productive with brown and green sputum. He endorses nasal c ongestion but denies shortness of breath, chest pain, nausea, vomiting, abdominal pain, fever, sore throat, and diarrhea. Patient is a current everyday smoker. - Related Data Allergies/Adverse Reactions: lactose [Lactose] Adverse Reaction (Mild, Verified 10/29/19 12:02) Nausea Home Medications: methadone Past Medical History - General Information source: Patient - Social History Smoking Status: Current Every Day Smoker Chew tobacco use (# tins/day): No Smoking Education Provided: Yes - <3 minutes Frequency of alcohol use: None Drug Abuse: None Family History: Reviewed & Not Pertinent, CAD, Other - CHF Patient has homicidal ideation: No - Past Medical History Cardiac Medical History: Reports: Hx Hypertension Pulmonary Medical History: Reports: Hx Asthma Neurological Medical History: Reports: Hx Migraine Renal/ Medical History: Denies: Hx Peritoneal Dialysis GI Medical History: Reports: Hx Gastritis, Hx Gastroesophageal Reflux Disease, Hx Ulcer, Hx Endoscopy Musculoskeletal Medical History: Reports Hx Musculoskeletal Trauma Psychiatric Medical History: Reports: Hx Anxiety Traumatic Medical History: Reports: Hx Fractures - Fingers and nose Past Surgical History: Reports: Hx Abdominal Surgery - HERNIA, Hx Inguinal He rnia - Immunizations Immunizations up to date: Yes Hx Diphtheria, Pertussis, Tetanus Vaccination: Yes - 2016 Review of Systems - Review of Systems Constitutional: No symptoms reported EENT: See HPI Cardiovascular: No symptoms reported Respiratory: See HPI Gastrointestinal: No symptoms reported Genitourinary: No symptoms reported Male Genitourinary: No symptoms reported Musculoskeletal: See HPI Skin: No symptoms reported Hematologic/Lymphatic: No symptoms reported Neurological/Psychological: No symptoms reported Physical Exam - Vital signs Vitals: Temp Pulse Resp BP Pulse Ox 98.2 F 71 15 157/86 H 94 01/07/20 22:37 01/07/20 22:37 01/07/20 22:37 01/07/20 22:37 01/07/20 22:37 - Notes Notes: PHYSICAL EXAMINATION: GENERAL: Well-appearing, well-nourished and in no acute distress. HEAD: Atraumatic, normocephalic. EYES: sclera anicteric, conjunctiva are normal. ENT: Moist mucous membranes. NECK: Normal range of motion LUNGS: Normal work of breathing. Lungs clear to auscultation bilaterally. No wheezes, rales, or rhonchi. HEART: Regular rate and rhythm. No murmurs noted. 2+ radial pulses bilaterally. EXTREMITIES: Area of swelling and fluctuance proximal to the nail of the left ring finger. Tenderness to palpation to the area but full range of motion. No pitting or edema. No cyanosis. NEUROLOGICAL: No focal neurological deficits. Moves all extremities spontaneously and on command. PSYCH: Normal mood, normal affect. SKIN: Warm, Dry, normal turgor, no rashes or lesions noted. Course - Re-evaluation Re-evalutation: Patient is a 39-year-old male who presents with paronychia to left ring finger that began 5 days ago. Patient also has a concern for cough and wheezing that he has had for the past month. Vital signs are within normal limits. On exam, nonlabored respirations with lungs clear to auscultation bilaterally. Paronychia noted to the left ring finger with swelling, fluctuance and tenderness. Chest x-ray negative. Incision and drainage performed on the left ring finger with moderate amount of purulent drainage. Patient tolerated the procedure well with no complications. Wound dressed with non-adhesive dressing. Dose of keflex 500mg PO given here in the ED. Prescription for Keflex 500mg PO QID for 7 days given. Patient was offered a prescription for Tessalon Perles, but patient declined. Return precautions and follow up instructions given. Patient understands and is in agreement with the plan. 01/08/20 01:06 - Vital Signs Vital signs: Temp Pulse Resp BP Pulse Ox 98.2 F 71 15 157/86 H 94 01/07/20 22:57 01/07/20 22:37 01/07/20 22:37 01/07/20 22:37 01/07/20 22:37 - Diagnostic Test Radiology reviewed: Reports reviewed Radiology results interpreted by me: Chest X-Ray 01/07/20 22:59 IMPRESSION: No acute process. No significant interval change. Procedures - Incision and Drainage Left Dorsal Finger 4th digit Type: Simple Blade size: 11 I&D procedure: Shurclens applied Incision Method: Incision made by scalpel Amount/type of drainage: Moderate amount of purulent drainage Notes: Incision and drainage tolerated well with no complications. Non-adhesive dressing applied. Discharge - Discharge Clinical Impression: Paronychia of left ring finger, Cough Condition: Stable Disposition: HOME, SELF-CARE Additional Instructions: Paronychia You have an infection between the nail and the surrounding skin, called a paronychia. The germs infect the area after a minor skin injury, such as a hangnail. This infection is treated by releasing the pus. This is usually done by the skin from the nail. If the infection has spread underneath the nail, partial removal of the nail may be necessary. Hot-soak the area three or four times daily. Antibiotics are often given, but are not always necessary. Healing takes about a week. If pain or swelling becomes severe or if you develop fever or chills, call the doctor or return for re-examination. Prescriptions: Cephalexin Monohydrate [Keflex 500 mg Capsule] 500 mg PO QID 7 Days #28 capsule Forms: Smoking Cessation Education Referrals: [facility] [Provider Group] - Follow up as needed
[2020-01-08] MEDS ORDERED: CEPHALEXIN 500 MG CAPSULE PO ONE (00:35)
[2020-01-08 01:23] VITALS: BP 143/97
== END 2020-01-08 01:23 | disposition home or self-care (01) ==
LOC: ER 22:31
DX: L03.012 Cellulitis of left finger (principal); R05 Cough; R06.2 Wheezing; I10 Essential (primary) hypertension; F17.200 Nicotine dependence, unspecified, uncomplicated
CPT/HCPCS: 71046; 99283

== ENCOUNTER 2020-03-09 10:33 | Emergency (ER) | payer SELFPAY ==
[2020-03-09] MEDS ORDERED: METRONIDAZOLE 500 MG TABLET PO ONE (11:47)
[2020-03-09] MEDS ORDERED: CEFTRIAXONE INJ 250 MG VIAL IM ONE (11:47)
[2020-03-09] MEDS ORDERED: AZITHROMYCIN 250 MG TABLET PO ONE (11:47)
[2020-03-09] MEDS ORDERED: LIDOCAINE 1% INJ (10 MG/ML) 10 ML MDV INJ ONE (11:47)
[2020-03-09 12:45] LABS: APPEARANCE,URINE CLEAR; BILIRUBIN,URINE NEGATIVE (NEGATIVE); COLOR,URINE YELLOW; GLUCOSE, URINE NEGATIVE (NEGATIVE); KETONES,URINE NEGATIVE (NEGATIVE); LEUKOCYTE ESTERASE,URINE NEGATIVE (NEGATIVE); NITRITE,URINE NEGATIVE (NEGATIVE); PROTEIN,URINE NEGATIVE (NEGATIVE); URINE SPECIFIC GRAVITY 1.016; UROBILINOGEN,URINE NEGATIVE mg/dL (<2.0)
--- NOTE | 2020-03-09 13:19 | ER Document Report ---
HPI - HPI Patient complains to provider of: Low back pain Time Seen by Provider: 03/09/20 11:47 Onset/Duration: Persistent Quality of pain: Achy Pain Level: 1 Context: Patient presents complaining of a flareup of his chronic low back pain over the past several days. Patient states that his significant other is here for vaginal discharge and he would like to be treated as well. Patient reports previous exposure to chlamydia and states that he never followed up initially and so would like to be treated. Patient reports some urinary frequency. Patient denies any dysuria or penile discharge. Associated Symptoms: Other - Low back pain, urinary frequency. denies: Fever, Headache, Nausea, Vomiting Exacerbated by: Movement Relieved by: Denies Similar symptoms previously: Yes Recently seen / treated by doctor: No - ROS ROS below otherwise negative: Yes Systems Reviewed and Negative: Yes All other systems reviewed and negative - CONSTITUTIONAL Constitutional: DENIES: Fever, Chills - EENT EENT: DENIES: Sore Throat - CARDIOVASCULAR Cardiovascular: DENIES: Chest pain - RESPIRATORY Respiratory: DENIES: Coughing - GASTROINTESTINAL Gastrointestinal: DENIES: Abdominal Pain, Nausea - URINARY Urinary: REPORTS: Frequency. DENIES: Urgency - MUSCULOSKELETAL Musculoskeletal: REPORTS: Back Pain - DERM Skin Color: Normal Skin Problems: None Past Medical History - General Information source: Patient - Social History Smoking Status: Current Every Day Smoker Frequency of alcohol use: None Drug Abuse: None Occupation: [employer] Lives with: Spouse/Significant other Family History: Reviewed & Not Pertinent, CAD, Other - CHF - Past Medical History Cardiac Medical History: Reports: Hx Hypertension Pulmonary Medical History: Reports: Hx Asthma Neurological Medical History: Reports: Hx Migraine Renal/ Medical History: Denies: Hx Peritoneal Dialysis GI Medical History: Reports: Hx Gastritis, Hx Gastroesophageal Reflux Disease, Hx Ulcer, Hx Endoscopy Musculoskeletal Medical History: Reports Hx Musculoskeletal Trauma Psychiatric Medical History: Reports: Hx Anxiety Traumatic Medical History: Reports: Hx Fractures - Fingers and nose Past Surgical History: Reports: Hx Abdominal Surgery - HERNIA, Hx Inguinal Hernia - Immunizations Immunizations up to date: Yes Hx Diphtheria, Pertussis, Tetanus Vaccination: Yes - 2017 Vertical Provider Document - CONSTITUTIONAL Agree With Documented VS: Yes Exam Limitations: No Limitations General Appearance: WD/WN, No Apparent Distress - INFECTION CONTROL TRAVEL OUTSIDE OF THE [place] IN LAST 30 DAYS: No - HEENT HEENT: Atraumatic, Normocephalic - NECK Neck: Normal Inspection, Supple - RESPIRATORY Respiratory: Breath Sounds Normal, No Respiratory Distress - CARDIOVASCULAR Cardiovascular: Regular Rate, Regular Rhythm - GI/ABDOMEN Gastrointestinal: Abdomen Soft, Abdomen Non-Tender - BACK Back: Abnormal Inspection - Lower lumbar paraspinal tenderness. negative: CVA Tenderness-Right, CVA Tenderness-Left - MUSCULOSKELETAL/EXTREMETIES Musculoskeletal/Extremeties: MAEW, FROM - NEURO Level of Consciousness: Awake, Alert, Appropriate Motor/Sensory: No Motor Deficit - DERM Integumentary: Warm, Dry, No Rash Course - Re-evaluation Re-evalutation: 03/09/20 13:30 Gonorrhea and Chlamydia tests are pending at this time. Patient was treated empirically. Patient encouraged to follow-up with health department if he would like any additional STD testing. Discussed safe sex practices. The patient presents with low back pain without signs of spinal cord compression, cauda equina syndrome, infection, aneurysm, or other serious etiology. The patient is neurologically intact. Given the extremely risk of these diagnoses further testing and evaluation for these possibilities does not appear to be indicated at this time. Patient has been instructed to return if the symptoms worsen or change in any way. 1 - Vital Signs Vital signs: Temp Pulse Resp BP Pulse Ox 97.9 F 70 16 135/84 H 96 03/09/20 10:41 03/09/20 10:41 03/09/20 10:41 03/09/20 10:41 03/09/20 10:41 - Laboratory Results Critical Laboratory Results Reviewed: No Critical Results - Radiology Results Critical Radiology Results Reviewed: No Critical Results Discharge - Discharge Clinical Impression: Concern about STD in male without diagnosis Low back pain Qualifiers: Chronicity: chronic Back pain laterality: unspecified Sciatica presence: without sciatica Qualified Code(s): M54.5 - Low back pain Condition: Stable Disposition: HOME, SELF-CARE Instructions: Azithromycin ([facility]), Low Back Pain ([facility]), Metronidazole ([facility]), Rocephin ([facility]) Additional Instructions: Return immediately for any new or worsening symptoms Followup with your primary care provider, call tomorrow to make a followup appointment You can follow-up with health department for STD testing Safe sex practices, always use a condom Prescriptions: Cyclobenzaprine HCl [Flexeril 10 Mg Tablet] 10 mg PO TID #15 tablet Naproxen [Naprosyn 250 Nmg Tablet] 1 tab PO BID #14 tablet Forms: Return to Work Referrals: HEALTH DEPT,[facility] [NO LOCAL MD] - Follow up as needed [facility] [Provider Group] - Follow up as needed [facility] [Provider Group] - Follow up as needed
[2020-03-09 13:53] LABS: CHLAM PCR NOT DETECTED (NOT DETECT)
[2020-03-09 14:07] VITALS: BP 132/81
== END 2020-03-09 13:57 | disposition home or self-care (01) ==
LOC: ER 10:33
DX: G89.29 Other chronic pain (principal); M54.5 Low back pain; R35.0 Frequency of micturition; F17.200 Nicotine dependence, unspecified, uncomplicated; I10 Essential (primary) hypertension; J45.909 Unspecified asthma, uncomplicated; Z20.2 Contact with and (suspected) exposure to infections with a predominantly sexual mode of transmission
CPT/HCPCS: 99284; 96372; 81001; 87491; 87591; J0696

== ENCOUNTER 2020-03-16 09:23 | Emergency (ER) | payer SELFPAY | END 2020-03-16 09:35 | disposition left against medical advice (07) | LOC: ER 09:23 | DX: Z53.21 Procedure and treatment not carried out due to patient leaving prior to being seen by health care provider (principal) ==

== ENCOUNTER 2020-03-16 12:34 | Emergency (ER) | payer SELFPAY | END 2020-03-16 14:15 | disposition left against medical advice (07) | LOC: ER 12:34 | DX: Z53.21 Procedure and treatment not carried out due to patient leaving prior to being seen by health care provider (principal) ==

== ENCOUNTER 2020-03-17 15:40 | Emergency (ER) | payer SELFPAY ==
[2020-03-17 16:05] VITALS: BP 174/93
[2020-03-17] MEDS ORDERED: ACETAMINOPHEN 325 MG TABLET PO ONE (16:08)
[2020-03-17] MEDS ORDERED: RINGERS SOLUTION,LACTATED 1,000 ML IV ONE (16:08)
[2020-03-17] MEDS ORDERED: METOCLOPRAMIDE HCL INJ/PF 10 MG/2 ML SDV IV ONE (16:08)
[2020-03-17] MEDS ORDERED: DIPHENHYDRAMINE HCL 50 MG/ML VIAL IV ONE (16:08)
--- NOTE | 2020-03-17 16:09 | ER Document Report ---
ED Medical Screen (RME) - General Stated Complaint: HEADACHE Time Seen by Provider: 03/17/20 16:02 Mode of Arrival: Medic Information source: Patient Notes: HPI; 39-year-old male was brought to the emergency room by EMS complaining of "worst headache of my life" for the past 2 days. He denies any history of migraines. No head trauma or head injury. Complains of nausea with photophobia. States he used heroin earlier today without relief of his headache. Describes it as a sharp stabbing pain located to the right side of his head. PE: Alert and oriented x3. PERRLA, EOMI. positive for bilateral photophobia. T enderness over the right temporal region. Lungs: Clear to auscultation without rales, rhonchi, wheezes. Heart: Tachycardic without murmurs, rubs, gallops. I have greeted and performed a rapid initial assessment of this patient. A comprehensive ED assessment and evaluation of the patient, analysis of test results and completion of the medical decision making process will be conducted by additional ED providers. I have specifically instructed the patient or family members with the patient to immediately return to any nursing staff should anything change in the patient's condition or with their chief complaint. TRAVEL OUTSIDE OF THE [place] IN LAST 30 DAYS: No - Related Data Allergies/Adverse Reactions: lactose [Lactose] Adverse Reaction (Mild, Verified 03/09/20 11:40) Nausea Past Medical History - Past Medical History Cardiac Medical History: Reports: Hx Hypertension Pulmonary Medical History: Reports: Hx Asthma Neurological Medical History: Reports: Hx Migraine Renal/ Medical History: Denies: Hx Peritoneal Dialysis GI Medical History: Reports: Hx Gastritis, Hx Gastroesophageal Reflux Disease, Hx Ulcer, Hx Endoscopy Musculoskeltal Medical History: Reports Hx Musculoskeletal Trauma Psychiatric Medical History: Reports: Hx Anxiety Traumatic Medical History: Reports: Hx Fractures - Fingers and nose Past Surgical History: Reports: Hx Abdominal Surgery - HERNIA, Hx Inguinal Hernia - Immunizations Immunizations up to date: Yes Hx Diphtheria, Pertussis, Tetanus Vaccination: Yes - 2016 Physical Exam - Vital signs Vitals: Temp Pulse Resp BP Pulse Ox 98.8 F 68 20 174/93 H 100 03/17/20 16:01 03/17/20 16:01 03/17/20 16:01 03/17/20 16:01 03/17/20 16:01 Course - Vital Signs Vital signs: Temp Pulse Resp BP Pulse Ox 98.8 F 68 20 174/93 H 100 03/17/20 16:01 03/17/20 16:01 03/17/20 16:01 03/17/20 16:01 03/17/20 16:01
--- NOTE | 2020-03-17 16:46 | RADIOLOGY REPORT (SQ) ---
EXAM DESCRIPTION: CT HEAD WITHOUT IMAGES COMPLETED DATE/TIME: 03/17/2020 4:31 pm REASON FOR STUDY: headache COMPARISON: 01/11/2017, 12/17/2016, 10/30/2010 TECHNIQUE: Axial images acquired through the brain without intravenous contrast. Images reviewed wi th bone, brain and subdural windows. Additional sagittal and coronal reconstructions were generated. Images stored on PACS. All CT scanners at this facility use dose modulation, iterative reconstruction, and/or weight based d osing when appropriate to reduce radiation dose to as low as reasonably achievable (ALARA). [facility]: Dose Right [facility]: CareDose [facility]: Dose Right [facility]: Teradose 4D [facility]: Smart [employer] RADIATION DOSE: CT Rad equipment meets quality standard of care and radiation dose reduction techniq ues were employed. CTDIvol: 48.9 mGy. DLP: 934 mGy-cm. mGy. LIMITATIONS: None. FINDINGS: VENTRICLES: Normal size and contour. CEREBRUM: No masses. No hemorrhage. No midline shift. No evidence for acute infarction. Normal gra y/white matter differentiation. No areas of low density in the white matter. CEREBELLUM: No masses. No hemorrhage. No alteration of density. No evidence for acute infarction. EXTRAAXIAL SPACES: No fluid collections. No masses. ORBITS AND GLOBE: No intra- or extraconal masses. Normal contour of globe without masses. CALVARIUM: No fracture. PARANASAL SINUSES: No fluid or mucosal thickening. SOFT TISSUES: No mass or hematoma. OTHER: No other significant finding. IMPRESSION: NORMAL BRAIN CT WITHOUT CONTRAST. EVIDENCE OF ACUTE STROKE: NO. COMMENT: Quality ID # [id number]: Final reports with documentation of one or more dose reduction techniques (e.g., Automated exposure control, adjustment of the mA and/or kV according to patient size, use of iterative reconstruction technique) TECHNICAL DOCUMENTATION: JOB ID: [id number] 2010 [employer]- All Rights Reserved Reading location - IP/workstation name: [email or web address]
[2020-03-17 17:03] LABS: ABSOLUTE EOSINOPHILS # (AUTO) 0.2 10^3/uL (0.0-0.6); ABSOLUTE LYMPHOCYTES (AUTO) 1.7 10^3/uL (0.5-4.7); ABSOLUTE MONOCYTES (AUTO) 0.5 10^3/uL (0.1-1.4); ABSOLUTE NEUT (AUTO) 7.1 10^3/uL (1.7-8.2); BASOPHILS % (AUTO) 0.3 % (0-2); EOSINOPHILS % (AUTO) 1.7 % (0-6); HEMATOCRIT 36.1 % (37.9-51.0); HEMOGLOBIN 12.5 g/dL (13.5-17.0); MEAN CORPUSCULAR HEMOGLOBIN 33.6 pg (27.0-33.4); MEAN CORPUSCULAR HGB CONC 34.7 g/dL (32.0-36.0); MEAN CORPUSCULAR VOLUME 97 fl (80-97); MONOCYTES % (AUTO) 5.6 % (3-13); PLATELET COUNT 266 10^3/uL (150-450); RED BLOOD COUNT 3.73 10^6/uL (4.35-5.55); SEGMENTED NEUTROPHILS % (AUTO) 74.4 % (42-78); TOTAL CELLS COUNTED % (AUTO) 100 %; WHITE BLOOD COUNT 9.6 10^3/uL (4.0-10.5)
[2020-03-17 17:08] LABS: ALBUMIN 4.4 g/dL (3.5-5.0); ALKALINE PHOSPHATASE 57 U/L (38-126); ANION GAP 8 (5-19); ASPARTATE AMINO TRANSFERASE 34 U/L (17-59); BILIRUBIN,DIRECT 0.2 mg/dL (0.0-0.4); BILIRUBIN,TOTAL 0.7 mg/dL (0.2-1.3); BLOOD UREA NITROGEN 13 mg/dL (7-20); CALCIUM 9.5 mg/dL (8.4-10.2); CARBON DIOXIDE 28 mmol/L (22-30); CHLORIDE 102 mmol/L (98-107); GLUCOSE 115 mg/dL (75-110); POTASSIUM 4.1 mmol/L (3.6-5.0)
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
[2020-03-17 17:25] LABS: C-REACTIVE PROTEIN < 5.0 mg/L (<10.0)
[2020-03-17 17:39] LABS: ERYTHROCYTE SEDIMENTATION RATE 21 mm/hr (0-15)
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
== END 2020-03-17 21:22 | disposition left against medical advice (07) ==
LOC: ER 15:40
DX: R51.9 Headache, unspecified (principal); H53.149 Visual discomfort, unspecified; I10 Essential (primary) hypertension
CPT/HCPCS: 99281; 96361; 96374; 96375; 36415; 85025; 85652; 86140; 80053; 73130; 70450; 73200; J1200; J2765; J7120